=== PATIENT | female | born 1950 | race Hispanic/Latino ===

== ENCOUNTER 2017-06-10 11:18 | Emergency (ER) | payer MEDICARE, BC ==
--- NOTE | 2017-06-10 12:22 | RAD ---
RADIOGRAPH CHEST 2 VIEWS: HISTORY: A 66-year-old female with acute cough. FINDINGS: There is no air space density, pulmonary edema, pleural effusion, pneumothorax, or cardiomegaly. Mil d, chronic appearing, ill defined density in the right mid-upper lung zone, on the frontal projection , is unchanged since 05/27/2015. IMPRESSION: 1. No acute cardiopulmonary findings. 2. Right upper lobe pulmonary scar. bette POS: MARV
[2017-06-10 14:48] LABS: CKMB 0.5 ng/mL (0-6.6); Troponin I Less than 0.010 ng/mL (< 0.028)
== END 2017-06-10 15:23 | disposition home or self-care (01) ==
LOC: ERS 11:18
DX: J11.1 Influenza due to unidentified influenza virus with other respiratory manifestations (principal); E11.9 Type 2 diabetes mellitus without complications; I10 Essential (primary) hypertension; F32.9 Major depressive disorder, single episode, unspecified
CPT/HCPCS: 36415; 71046; 82553; 84484; 85379; 93005

== ENCOUNTER 2018-02-08 13:40 | Emergency (ER) | payer MEDICARE, BC ==
[2018-02-08 14:08] LABS: Bilirubin Negative (Negative); Blood, Urine Large (Negative); Clarity CLOUDY (Clear); Glucose, Urine (Dipstick) Negative (Negative); Leukocyte Large (Negative); Nitrite Negative (Negative); Protein, Urine (Dipstick) Trace mg/dL (Neg-Trace); Urobilinogen 0.2 mg/dL (0.2-1.0); pH, Urine 7.5 (5.0-9.0)
[2018-02-08 14:09] LABS: Bacteria/HPF None Seen HPF (None Seen); Hyaline Casts/LPF 0-3 HYALINE CAST LPF (0-3 Hyaline); Pathc Cast-AUWi Flag 0.43 (0-2.49); Squamous Epithelial None Seen HPF (0-3)
[2018-02-08 14:11] LABS: Specific Gravity, Urine 1.003 (1.002-1.036)
[2018-02-08] MEDS ORDERED: Ibuprofen 800 MG TAB ONE (14:42)
--- NOTE | 2018-02-08 18:35 | CT ---
CT ABDOMEN AND PELVIS PERFORMED WITHOUT CONTRAST ENHANCEMENT: HISTORY: Right flank pain. Urinary retention. Dysuria x2 days. The patient denies any history of stones. COMPARISON: 02/12/2016 FINDINGS: ABDOMEN: The lung bases show some minimal interstitial change within the left base, which appears to represent more scar. There are also some changes in the right middle lobe, also felt to be on the b asis of some scar. The liver, spleen, and pancreas regions appear unremarkable. The gallbladder has been removed. The right and left adrenal glands are normal in size and appearance. No renal calculi are demonstrat ed. Some mild hydronephrosis and hydroureter with perinephric fat stranding, particularly as the ure ter passes over the pelvic brim. This is essentially an identical appearance to the previous 2016 st udy; therefore, not certain how much of this may represent some chronic scarring in this region. The re is no demonstration of a ureteral calculus. There is no significant periaortic or mesenteric reggie opathy. PELVIS: Sigmoid diverticulosis is noted. The appendix is normal. A fat-containing paraumbilical he rnia is seen. IMPRESSION: 1. Mild right-sided hydronephrosis and hydroureter, with fairly prominent soft tissue changes, which appear to represent perinephric fat stranding along the ureter, near the level of the pelvic brim. This is a very similar appearance to what was seen on the prior examination, with these changes exten ding down into the pelvis. I suspect this is some type of scarring, given the essentially identical appearance. 2. Normal appendix. 3. Fat-containing periumbilical hernia. 4. No other significant findings. POS: MARV
== END 2018-02-08 17:20 | disposition home or self-care (01) ==
LOC: ERS 13:40
DX: N30.00 Acute cystitis without hematuria (principal); E11.9 Type 2 diabetes mellitus without complications; I10 Essential (primary) hypertension; F32.9 Major depressive disorder, single episode, unspecified; Z87.891 Personal history of nicotine dependence
CPT/HCPCS: 74176; 81003; 81015

== ENCOUNTER 2019-02-17 20:09 | Inpatient (IN) | payer MEDICARE, BC ==
[2019-02-17 20:32] LABS: #Basophils 0.1 thou/uL (0.0-0.2); #Eosinphils 0.4 thou/uL (0.0-0.7); #Monocytes 0.7 thou/uL (0.11-0.59); #Neutrophils 7.4 thou/uL (1.40-6.50); %Basophils 0.4 % (0.0-1.0); %Eosinophils 2.9 % (0.0-10.0); %Monocytes 5.7 % (0.0-10.0); %Neutrophils 58.9 % (42.0-75.0); Hemoglobin 12.6 g/dL (12.0-16.0); Mean Corpuscular HGB CONC 34.1 g/dL (32.0-36.0); Mean Corpuscular Hemoglobin 30.1 pg (27.0-31.0); Mean Corpuscular Volume 88.4 fL (78.0-98.0); Mean Platelet Volume 7.2 fL (7.4-10.4); Platelet Count 295 thou/uL (130-400); RBC Distribution Width 11.9 % (11.5-14.5); Red Blood Cell (RBC) Count 4.17 mill/uL (4.20-5.40); White Blood Cell (WBC) Count 12.5 thou/uL (4.8-10.8)
[2019-02-17] MEDS ORDERED: Morphine 4 MG/ML VIAL ONE (20:42)
[2019-02-17] MEDS ORDERED: Nitroglycerin 2% Ointment 1 INCH/1 GM Packet ONE ×2 (20:42→20:43)
[2019-02-17 20:55] LABS: ALT (SGPT) 15 U/L (8-55); AST (SGOT) 16 U/L (5-34); Alkaline Phosphatase 76 U/L (40-110); Anion Gap 11 mmol/L (10-20); BUN (Urea Nitrogen) 14 mg/dL (9.8-20.1); Bilirubin, Total 0.3 mg/dL (0.2-1.2); Calc. Creatinine Clearance 0 mL/min (70-130); Calcium 9.1 mg/dL (7.8-10.44); Carbon Dioxide 25 mmol/L (23-31); Chloride 101 mmol/L (98-107); Estimated GFR-MDRD 68; Globulin 3.4 g/dL (2.4-3.5); Glucose 185 mg/dL (80-115); Lipase 41 U/L (8-78); Magnesium 1.6 mg/dL (1.6-2.6); Potassium 3.7 mmol/L (3.5-5.1); Protein, Total 7.4 g/dL (6.0-8.3); Sodium 133 mmol/L (136-145)
--- NOTE | 2019-02-17 21:12 | RAD ---
RADIOGRAPH CHEST 1 VIEW: DATE: 02/17/2019 HISTORY: 68-year-old female with pain FINDINGS: There are no airspace densities, pulmonary edema, pneumothorax, or cardiomegaly. The lateral costophr enic angles are sharp. IMPRESSION: No acute cardiopulmonary findings.
[2019-02-17 21:54] LABS: Bilirubin Negative (Negative); Blood, Urine Negative (Negative); Clarity Clear (Clear); Glucose, Urine (Dipstick) Normal (Negative); Leukocyte Negative Leu/uL (Negative); Nitrite Negative (Negative); Protein, Urine (Dipstick) Negative (Neg-Trace); Urobilinogen Normal mg/dL (Less than 2)
[2019-02-17] MEDS ORDERED: Enoxaparin Sodium 40 MG/0.4 ML SYRINGE ONE (22:38)
[2019-02-17] MEDS ORDERED: Enoxaparin Sodium 30 MG/0.3 ML SYRINGE ONE (22:39)
[2019-02-18] MEDS ORDERED: Acetaminophen 650 MG Suppository PR PRN (01:25)
[2019-02-18] MEDS ORDERED: Acetaminophen 325 MG TAB PO PRN (01:25)
[2019-02-18] MEDS ORDERED: Ondansetron PF 4 MG/2 ML Vial IVP PRN (01:25)
[2019-02-18] MEDS ORDERED: HumaLOG 300 UNITS/3 ML VIAL SC PRN ×2 (01:33)
[2019-02-18] MEDS ORDERED: Dextrose 5% in Water 1,000 ML IV PRN (01:33)
[2019-02-18] MEDS ORDERED: Dextrose 50% Abboject 50 ML SYRINGE SLOW IVP PRN (01:33)
[2019-02-18 01:41] VITALS: BMI 30.3
[2019-02-18 02:11] LABS: #Basophils 0.2 thou/uL (0.0-0.2); #Eosinphils 0.3 thou/uL (0.0-0.7); #Lymphocytes 3.7 thou/uL (1.20-3.40); #Monocytes 0.6 thou/uL (0.11-0.59); #Neutrophils 6.8 thou/uL (1.40-6.50); %Basophils 1.5 % (0.0-1.0); %Eosinophils 2.7 % (0.0-10.0); %Lymphocytes 32.2 % (21.0-51.0); %Monocytes 5.2 % (0.0-10.0); %Neutrophils 58.4 % (42.0-75.0); Hemoglobin 11.8 g/dL (12.0-16.0); Mean Corpuscular HGB CONC 33.8 g/dL (32.0-36.0); Mean Corpuscular Hemoglobin 30.1 pg (27.0-31.0); Platelet Count 257 thou/uL (130-400); RBC Distribution Width 11.9 % (11.5-14.5); Red Blood Cell (RBC) Count 3.93 mill/uL (4.20-5.40); White Blood Cell (WBC) Count 11.6 thou/uL (4.8-10.8)
[2019-02-18 02:44] LABS: Troponin I 0.177 ng/mL (< 0.028)
[2019-02-18 02:54] LABS: Anion Gap 14 mmol/L (10-20); BUN (Urea Nitrogen) 14 mg/dL (9.8-20.1); Calc. Creatinine Clearance 82 mL/min (70-130); Calcium 9.1 mg/dL (7.8-10.44); Carbon Dioxide 25 mmol/L (23-31); Chloride 103 mmol/L (98-107); Estimated GFR-MDRD 79; Glucose 113 mg/dL (80-115); Potassium 3.8 mmol/L (3.5-5.1); Sodium 138 mmol/L (136-145)
--- NOTE | 2019-02-18 05:07 | HP ---
TIME OF ASSESSMENT: 2300 hours. PRIMARY CARE PHYSICIAN: Kana Aguirre MD. CHIEF COMPLAINT: Chest pain worsening x1 month. HISTORY OF PRESENT ILLNESS: Ms. Carbone is a 68-year-old woman with a past medical history of diabetes and hypertension, who states for the last month, she has had occasional pain that has started on the right side of her neck and then involving her jaw, which she states feels like a stiffness. She states that it has been going on for about a month and coming on any time of day whether she is exerting herself or at rest. The pain then moves to her left shoulder and into her chest. More recently, the pain has become more frequent and more severe. She had a severe episode of pain come on suddenly around 7 p.m., lasting approximately 15 to 20 minutes, which she states was a 10/10 in severity. She has difficulty characterizing the pain, but states it is severe. The jaw feels tight and stiff , but she still able to move it. She does wear dentures. Denies having any soreness to her jaw when the pain has subsided. Again, the pain radiated to her left shoulder and down into the center of her chest. She had a recurring pain when EMS arrived to her home and states it lasted approximately 5 minutes and was relieved with aspirin and nitroglycerin given. Since being in the emergency department, she had one recurring episode and the pain did subside. She is currently pain free. In the emergency department, she underwent laboratory studies including full blood count, which was notable for white cell count of 12.5. She had a D-dimer checked, which was negative. Sodium was 133, potassium 3.7, BUN 14, creatinine 0.83, GFR 68, glucose 185, calcium 9.1, magnesium 1.6. LFTs unremarkable. Lipase normal. Initial troponin was 0.022. She underwent a chest x-ray, which showed no acute cardiopulmonary findings. An EKG was done demonstrating normal sinus rhythm with a heart rate of [address] changes or T-wave abnormalities. Given the description of pain, there was concern for unstable angina versus NSTEMI. Therefore, she was started on Nitro-Bid, given morphine and a dose of Lovenox. The case was discussed with Dr. Ramires and she will be seen in the morning. PAST MEDICAL HISTORY: 1. Cardiomyopathy. 2. Hypothyroidism. 3. GERD. 4. Inflammatory bowel disease, ulcerative colitis. 5. Hypertension. 6. CKD, stage III. 7. Heart murmur. 8. Anxiety. PAST SURGICAL HISTORY: 1. Cholecystectomy. 2. Hysterectomy. 3. Tonsillectomy. 4. Benign tumor removed from lung. 5. Colon resection. 6. Bladder suspension. 7. Lumpectomy from breast x2. 8. Varicose vein surgery. SOCIAL HISTORY: The patient is a smoker and states she quit 3 days ago. She smokes a pack per day. Denies any alcohol consumption or illicit drug use. ALLERGIES: MORPHINE. CURRENT MEDICATIONS: 1. Carvedilol. 2. Losartan. 3. Hydralazine. 4. Simvastatin. 5. Lasix. 6. Calcium carbonate. 7. Alprazolam. 8. Catapres. 9. Eliquis. PHYSICAL EXAMINATION: GENERAL: The patient appears well developed, well nourished, is in no acute distress. VITAL SIGNS: Temperature 101, pulse 72, respirations 18, blood pressure 111/46, saturations 92% on 2 L. HEENT: Normocephalic and atraumatic. Pupils are equal, round, and reactive to light. Sclerae icterus. Oropharynx is clear. The patient did have some mild tenderness with palpation of the right samaritan/face. Reports having history of neuralgia/migraines, but states this feels different. No pain involving the jaw at present. Able to open and close her mouth without difficulty. NECK: Supple. LUNGS: Notable for crackles in the right lung base, otherwise unremarkable. ABDOMEN: Soft, nontender, nondistended. Normoactive bowel sounds present. EXTREMITIES: No lower leg swelling or edema. NEUROLOGIC: Alert and oriented x3. SKIN: Without rash or jaundice. INVESTIGATIONS: As mentioned above in HPI. IMPRESSION AND PLAN: Ms. Carbone is a pleasant 68-year-old woman with multiple comorbidities, who has been referred for management of the following. 1. Unstable angina versus [id number]-gonmtaulb myocardial infarction. The patient with chest pain that has progressively worsening for the last month, occurring with exertion or at rest. The pain seems to start in the jaw and neck and radiates to the left shoulder and upper chest. The patient has been given aspirin and started on Lovenox. Conversation held with Dr. Ramires and ED physician. The patient will be evaluated by Cardiology in the morning. We will continue to trend troponins. Since Cardiology has already been consulted by the ED physician, we will not order any tests. Further investigations as per Cardiology. 2. Leukocytosis. The patient with a white count of 12.5. She does have a chronic cough associated with long-standing history of smoking. This is not worse in recent days. No productive cough. We will add on procalcitonin and lactic acid. She did have a clear chest x-ray, however, there were crackles at the right lung base. We will order a CT of the chest without contrast. Urinalysis was negative. No confirmed source of infection at present. We will continue to monitor white count. She remains afebrile. 3. Hypertension. Resume home medications and monitor blood pressure. 4. Gastroesophageal reflux disease. Resume Protonix. 5. Diabetes mellitus. Initiate insulin sliding scale and hold metformin. Monitor blood glucose. 6. Deep venous thrombosis prophylaxis. Mechanical SCDs. The patient was given Lovenox. 7. Code status, full. Her surrogate decision maker is her daughter, Eli Carbone and her son, Zaira Carbone Jr. The patient's case discussed with attending, who agrees with plan of care as described above. Job ID: [id number] MTDD
[2019-02-18 05:50] LABS: Lactic Acid 1.2 mmol/L (0.5-2.2)
[2019-02-18 06:22] LABS: CKMB 2.8 ng/mL (0-6.6)
[2019-02-18] MEDS: FLUoxetine HCl 20 MG CAP PO SCH (08:38)
[2019-02-18] MEDS: Losartan 25 MG TAB PO SCH ×2 (08:38→21:23)
[2019-02-18] MEDS: Amlodipine 5 MG TAB PO SCH (08:39)
[2019-02-18] MEDS: Aspirin 81 mg Enteric Coated Tablet PO SCH (08:39)
[2019-02-18] MEDS: Famotidine/PF 20 mg/2ml Vial SLOW IVP SCH ×2 (08:39→21:23)
[2019-02-18] MEDS ORDERED: Prevnar 13-Val Conj/PF 0.5 ML SYRINGE IM ONE (09:00)
--- NOTE | 2019-02-18 09:23 | CT ---
EXAM: CT of the chest without contrast HISTORY: Crackles in the right lung base and COPD. COMPARISON: None TECHNIQUE: Multiple contiguous axial images were obtained in a CT the chest without contrast. Coronal and sagittal reformats were performed. FINDINGS: HEART: Normal in size without focal cardiac abnormality. Calcifications in the coronary arteries and aorta. MEDIASTINUM: No hilar or mediastinal lymphadenopathy. Evaluation of the mediastinum is limited withou t IV contrast. LUNGS: No focal infiltrates, nodules, or masses. Bibasilar atelectasis. PLEURAL SPACE: No pneumothorax or pleural effusion. CHEST WALL SOFT TISSUES: Unremarkable OSSEOUS STRUCTURES: Degenerative changes in the spine. VISUALIZED SUBDIAPHRAGMATIC STRUCTURES: Unremarkable. The patient is status post cholecystectomy. IMPRESSION: No evidence of acute intrathoracic abnormality.
--- NOTE | 2019-02-18 09:29 | CT ---
CT cervical spine without contrast: Multiple axial tones obtained through cervical spine with multiplanar reconstruction. INDICATIONS: Neck pain COMPARISON: none FINDINGS: Mild anterior wedging of the C5 and C6 vertebra with degenerative osteophytes from these levels. Mild loss of disc space at C4-5 and C5-6. C3-4: Mild disc bulge and spondylosis. Mild left foraminal narrowing due to facet hypertrophy. C4-5: Mild spondylosis. No significant foraminal or central canal stenosis. C5-6: Disc bulge and spondylosis abuts the anterior cord. No significant foraminal stenosis. C6-7: Minimal disc bulge and spondylosis. No central canal or foraminal stenosis. IMPRESSION: Degenerative changes cervical spine most pronounced at C4-5 and C5-6 levels.
--- NOTE | 2019-02-18 10:43 | PDOC.HOSPP ---
- Subjective Subjective: She reports pain in the right paratracheal area. It is tender to touch. She was referred to ENT and had an appt this morning. Additionally, she has pain that radiates the face, left shoulder and back. - Objective Vital Signs & Weight: Vital Signs (12 hours) Temp Pulse Resp BP Pulse Ox 02/18/19 08:20 97.9 F 70 20 140/63 94 L 02/18/19 04:00 98.5 F 69 18 115/56 L 92 L 02/18/19 00:30 98 F 62 16 134/62 92 L Weight Weight 160 lb 6.4 oz I&O: 02/17/19 02/18/19 02/19/19 06:59 06:59 06:59 Intake Total 265 Balance 265 Result Diagrams: 02/18/19 02:01 02/18/19 02:01 Additional Labs: Accuchecks 02/18/19 05:34 POC Glucose 105 Hospitalist ROS - Medication Medications: Active Medications Generic Name Dose Route Start Last Admin Trade Name Grey PRN Reason Stop Dose Admin Amlodipine Besylate 5 mg 02/18/19 09:00 02/18/19 08:39 Norvasc PO 5 mg DAILY SAM Administration Aspirin 81 mg 02/18/19 09:00 02/18/19 08:39 Ecotrin PO 81 mg DAILY SAM Administration Famotidine 20 mg 02/18/19 09:00 02/18/19 08:39 Pepcid SLOW IVP 20 mg Q12HR SAM Administration Fluoxetine HCl 20 mg 02/18/19 09:00 02/18/19 08:38 Prozac PO 20 mg DAILY SAM Administration Losartan Potassium 50 mg 02/18/19 09:00 02/18/19 08:38 Cozaar PO 50 mg BID SAM Administration - Exam General Appearance: NAD, awake alert ENT - other findings: Edentulous. No lesions. Neck: supple, symmetric, no thyromegaly Neck - other findings: TTP along right lateral trachea. Very small LN palpable in the tender area Heart: RRR, no murmur, no gallops, no rubs, normal peripheral pulses Respiratory: CTAB, no wheezes, no rales, no ronchi, normal chest expansion, no tachypnea, normal percussion Gastrointestinal: soft, non-tender, non-distended, normal bowel sounds, no palpable masses, no hepatomegaly, no splenomegaly, no bruit Extremities: no edema Skin: normal turgor Neurological - other findings: Vitiligo over large area of the trunk. Musculoskeletal: normal tone, normal strength, no muscle wasting Psychiatric: normal affect, normal behavior, A&O x 3 Hosp A/P (1) Chest pain Code(s): R07.9 - CHEST PAIN, UNSPECIFIED Status: Acute (2) Throat pain Code(s): R07.0 - PAIN IN THROAT Status: Acute (3) Vitiligo Code(s): L80 - VITILIGO Status: Acute (4) Diabetes Code(s): E11.9 - TYPE 2 DIABETES MELLITUS WITHOUT COMPLICATIONS Status: Chronic (5) Hypertension Code(s): I10 - ESSENTIAL (PRIMARY) HYPERTENSION Status: Chronic - Plan Chest pain with radiation to the face, left shoulder and back. Upward trending trops to the indeterminate range. Don't find a reason for the trops to trend upward other than ischemia. Cardiology to see. Will not stress as she may warrant a cath. Throat pain is likely not related.
[2019-02-18] MEDS ORDERED: Communication Order-Pharmacy FS SCH (16:30)
--- NOTE | 2019-02-18 17:13 | CON ---
DATE OF CONSULTATION: 02/18/2019 REASON FOR CONSULTATION: Chest pain. HISTORY OF PRESENT ILLNESS: Ms. Carbone is a pleasant 68-year-old female, who comes to the hospital for chest pain. She has been noticing worsening chest pain for the last month to the point where yesterday was severe, 10/10 in the left chest, so she decided to come in for evaluation. She states that the pain radiates to the neck into the right jaw. Currently she is chest pain free. PAST MEDICAL HISTORY: 1. Hypothyroidism. 2. Gastroesophageal reflux disease. 3. Inflammatory bowel disease and ulcerative colitis. 4. Hypertension. 5. Chronic kidney disease stage 3. 6. Heart murmur in the past. 7. Anxiety and depression. 8. History of cardiomyopathy, unclear. PAST SURGICAL HISTORY: 1. Cholecystectomy. 2. Hysterectomy. 3. Tonsillectomy. 4. Benign tumor removed from the lung. 5. Colon resection. 6. Bladder suspension. 7. Lumpectomy from breast x2. 8. Varicose vein surgery. SOCIAL HISTORY: Smoker, quit three days ago. Smokes a pack a day. No alcohol or drugs. OUTPATIENT MEDICATIONS: 1. Fluoxetine 20 mg a day. 2. Amlodipine 5 mg a day. 3. Metformin 1500 mg a day. 4. Pantoprazole 40 mg a day. ALLERGIES: NO KNOWN DRUG ALLERGIES. FAMILY HISTORY: Noncontributory. REVIEW OF SYSTEMS: A 12-point review of systems was done and was all negative unless stated in the history and physical exam. PHYSICAL EXAMINATION: VITAL SIGNS: Temperature 98.0, pulse 67, respiratory rate 20, saturating 93% on room air, and blood pressure 134/60. GENERAL: Awake, alert, and oriented x3, in no distress. HEENT: Normocephalic and atraumatic. NECK: Supple. LUNGS: Clear. CARDIOVASCULAR: S1 and S2. No S3 or S4. No murmurs. ABDOMEN: Soft. Positive bowel sounds. EXTREMITIES: No edema. SKIN: Warm and dry. LABORATORY DATA: Laboratory work was reviewed. CBC with a white count of 12, hemoglobin of 12, hematocrit of 36, platelet count of 295. Coags with normal D-dimer. Chemistries with normal CMP. Troponin has been 0.02, and then 0.1, 0.17, 0.23, and 0.22. UA was unremarkable. EKG was reviewed. CT of the chest and cervical spine were reviewed. ASSESSMENT/PLAN: 1. Chest pain concerned for unstable angina. We will plan on doing a heart catheterization tomorrow morning. We will keep her n.p.o. post midnight. We spoke at length with risks and benefits of the procedure. Risks including but are not limited to stroke, [place], , bleeding, need for blood transfusion, limb loss, organ loss. The patient understands and verbalized understanding of this and agrees to proceed. Right femoral access. Bare metal stents if needed due to history of colitis and possibly needing cervical spine surgery, but this pain is actually coming from her neck. 2. Further recommendations per results of coronary angiogram. Job ID: [id number]
[2019-02-18] MEDS: Sodium Chloride 0.9% 1,000 ML IV SCH (21:22)
[2019-02-18] MEDS: Atorvastatin Calcium 10 MG TAB PO SCH (21:23)
[2019-02-19] MEDS ORDERED: Sodium Chloride 0.9% 500 ML IV SCH ×2 (00:01→08:30)
[2019-02-19] MEDS: Amlodipine 5 MG TAB PO SCH (05:08)
[2019-02-19] MEDS: Famotidine/PF 20 mg/2ml Vial SLOW IVP SCH ×2 (05:08→21:50)
[2019-02-19] MEDS: Aspirin 81 mg Enteric Coated Tablet PO SCH (05:09)
[2019-02-19] MEDS: Losartan 25 MG TAB PO SCH ×2 (05:09→21:50)
[2019-02-19] MEDS: FLUoxetine HCl 20 MG CAP PO SCH (05:09)
[2019-02-19] MEDS: Sodium Chloride 0.9% 1,000 ML IV SCH ×2 (05:31→12:11)
[2019-02-19] MEDS ORDERED: Lidocaine 1% (PF) 30 ML VIAL ONE (06:34)
[2019-02-19] MEDS ORDERED: Midazolam HCl 2 mg/2 ml Vial ONE (07:45)
[2019-02-19] MEDS ORDERED: Fentanyl 100 MCG/2 ML VIAL ONE (07:45)
[2019-02-19] MEDS ORDERED: Heparin 10,000 UNITS/1 ML VIAL ONE (07:56)
[2019-02-19] MEDS ORDERED: TICAGRELOR 90 MG TABLET ONE (08:16)
[2019-02-19] MEDS ORDERED: Morphine 2 MG/ML SYRINGE SLOW IVP PRN (08:34)
[2019-02-19] MEDS ORDERED: FLU VACC TS2019-20(65YR UP)/PF 180 MCG/0.5 ML SYRINGE IM ONE (09:00)
[2019-02-19] MEDS: TICAGRELOR 90 MG TABLET PO SCH ×2 (12:10→21:50)
[2019-02-19] MEDS ORDERED: Iopamidol 370 76% 50 ML VIAL FS ONE (12:24)
[2019-02-19] MEDS ORDERED: Iopamidol 370 76% 100 ML VIAL ONE (12:24)
--- NOTE | 2019-02-19 14:15 | PRG ---
DATE OF SERVICE: 02/19/2019 SUBJECTIVE: The patient is seen and examined at the bedside. She just came back from cardiac cath. She has some discomfort in the right groin, where this was point of entry for the cardiac cath. Otherwise, she is feeling fine. OBJECTIVE: VITAL SIGNS: Blood pressure is 164/74, pulse is 72, temperature is 97.5, respirations 16, and O2 saturation is 97% on room air. HEENT: Head is atraumatic and normocephalic. Eyes are PERRLA. Sclerae are nonicteric. Oral mucosa is moist. NECK: Supple. LUNGS: Clear. HEART: S1 and S2 normal. There is a systolic murmur mostly audible in the right sternal border suspicious for aortic stenosis. ABDOMEN: Soft and nontender. Bowel sounds are present. No organomegaly. EXTREMITIES: No clubbing, cyanosis, or edema. NEUROLOGIC: She follows my commands. She moves all 4 extremities. There are no any motor or sensory deficits. LABORATORY DATA: Glycemia is ranging from 115 to 178. IMPRESSION: 1. Chest pain, status post cardiac catheterization which showed very advanced multiple lesions in multiple vessels. 2. Vitiligo, chronic, stable. 3. Diabetes mellitus, chronic, stable. 4. Hypertension, chronic, stable. For now, we will await Dr. Powell's recommendation, but most likely cardiovascular surgeon will be called to evaluate the patient for possible bypass. Job ID: [id number]
[2019-02-19] MEDS: Carvedilol 3.125 MG TAB PO SCH (17:23)
--- NOTE | 2019-02-19 18:51 | EKG ---
Test Reason : POST STENT-PROX CIRC Blood Pressure : / mmHG Vent. Rate : 069 BPM Atrial Rate : 069 BPM P-R Int : 184 ms QRS Dur : 090 ms QT Int : 410 ms P-R-T Axes : 064 066 099 degrees QTc Int : 439 ms Normal sinus rhythm Nonspecific ST and T wave abnormality Abnormal ECG When compared with ECG of 17-FEB-2019 20:27, (Unconfirmed) No significant change was found Confirmed by KAMRAN PLUNKETT, . SAlanna ([id number]) on 02/19/2019 6:50:47 PM Referred By: LOY Confirmed By:DR. Junaid ANDREW MD
[2019-02-19] MEDS: Atorvastatin Calcium 10 MG TAB PO SCH (21:50)
[2019-02-20 06:20] LABS: #Eosinphils 0.3 thou/uL (0.0-0.7); #Lymphocytes 1.9 thou/uL (1.20-3.40); #Monocytes 0.8 thou/uL (0.11-0.59); #Neutrophils 9.8 thou/uL (1.40-6.50); %Basophils 0.2 % (0.0-1.0); %Eosinophils 2.1 % (0.0-10.0); %Lymphocytes 14.9 % (21.0-51.0); %Neutrophils 76.9 % (42.0-75.0); Hemoglobin 12.5 g/dL (12.0-16.0); Mean Corpuscular HGB CONC 33.8 g/dL (32.0-36.0); Mean Corpuscular Hemoglobin 30.4 pg (27.0-31.0); Mean Platelet Volume 7.4 fL (7.4-10.4); Platelet Count 267 thou/uL (130-400); RBC Distribution Width 12.1 % (11.5-14.5); Red Blood Cell (RBC) Count 4.12 mill/uL (4.20-5.40); White Blood Cell (WBC) Count 12.8 thou/uL (4.8-10.8)
[2019-02-20 06:47] LABS: ALT (SGPT) 17 U/L (8-55); AST (SGOT) 24 U/L (5-34); Albumin 3.8 g/dL (3.4-4.8); Alkaline Phosphatase 81 U/L (40-110); Anion Gap 11 mmol/L (10-20); BUN (Urea Nitrogen) 11 mg/dL (9.8-20.1); Bilirubin, Total 0.9 mg/dL (0.2-1.2); Calc. Creatinine Clearance 87 mL/min (70-130); Calcium 9.2 mg/dL (7.8-10.44); Carbon Dioxide 25 mmol/L (23-31); Chloride 105 mmol/L (98-107); Estimated GFR-MDRD 84; Globulin 3.8 g/dL (2.4-3.5); Glucose 137 mg/dL (80-115); Protein, Total 7.6 g/dL (6.0-8.3); Sodium 137 mmol/L (136-145)
[2019-02-20] MEDS: Carvedilol 3.125 MG TAB PO SCH (08:33)
[2019-02-20] MEDS: TICAGRELOR 90 MG TABLET PO SCH ×2 (08:34→20:22)
[2019-02-20] MEDS: Aspirin 81 mg Enteric Coated Tablet PO SCH (08:34)
[2019-02-20] MEDS: Amlodipine 5 MG TAB PO SCH (08:34)
[2019-02-20] MEDS: Losartan 25 MG TAB PO SCH ×2 (08:34→20:22)
[2019-02-20] MEDS: FLUoxetine HCl 20 MG CAP PO SCH (08:34)
[2019-02-20] MEDS: Famotidine/PF 20 mg/2ml Vial SLOW IVP SCH ×2 (08:35→09:51)
[2019-02-20] MEDS ORDERED: Famotidine 20 MG TAB PO SCH (09:45)
--- NOTE | 2019-02-20 09:51 | PDOC.CPN ---
- Subjective Date: 02/20/19 Time: 09:50 Interval history: No overnight events. Walking in li without CP,SOB. No complaints. - Review of Systems General: denies: fever/chills, weight/appetite/sleep changes, night sweats, fatigue Respiratory: denies: cough, congestion, shortness of breath, exercise intolerance Cardiovascular: denies: chest pain, palpitation, edema, paroxysmal nocturnal dyspnea, orthopnea Gastrointestinal: denies: nausea, vomiting, diarrhea, constipation, abd pain, GI bleeding Musculoskeletal: denies: pain, tenderness, stiffness, swelling, arthritis/ arthralgias Neurological: denies: numbness, syncope, seizure, weakness - Objective Allergies/Adverse Reactions: Allergies Allergy/AdvReac Type Severity Reaction Status Date / Time No Known Allergies Allergy Verified 02/18/19 01:33 Visit Medications: Current Medications Acetaminophen (Tylenol) 650 mg PO Q4H PRN PRN Reason: Headache/Fever/Mild Pain (1-3) Acetaminophen (Tylenol) 650 mg [place] Q4H PRN PRN Reason: Headache/Fever/Mild Pain (1-3) Amlodipine Besylate (Norvasc) 5 mg PO DAILY [facility] Last Admin: 02/20/19 08:34 Dose: 5 mg Aspirin (Ecotrin) 81 mg PO DAILY [facility] Last Admin: 02/20/19 08:34 Dose: 81 mg Atorvastatin Calcium (Lipitor) 10 mg PO [facility] Last Admin: 02/19/19 21:50 Dose: 10 mg Carvedilol (Coreg) 6.25 mg PO BID-[facility] Dextrose/Water (Dextrose 50%) 25 gm SLOW IVP PRN PRN PRN Reason: Hypoglycemia Famotidine (Pepcid) 20 mg PO DAILY [facility] Famotidine (Pepcid) 20 mg PO NOW [facility] Stop: 02/20/19 11:00 Fluoxetine HCl (Prozac) 20 mg PO DAILY [facility] Last Admin: 02/20/19 08:34 Dose: 20 mg Glucagon (Glucagon) 1 mg IM PRN PRN PRN Reason: Hypoglycemia Dextrose/Water (D5w) 1,000 mls @ 0 mls/hr IV .Q0M PRN PRN Reason: Hypoglycemia Insulin Human Lispro (Humalog) 0 units SC .MILD SLIDING SCALE PRN PRN Reason: Mild Correctional Scale Insulin Human Lispro (Humalog) 0 units SC .BEDTIME SLIDING SC PRN PRN Reason: Bedtime Correctional Scale Losartan Potassium (Cozaar) 50 mg PO BID [facility] Last Admin: 02/20/19 08:34 Dose: 50 mg Morphine Sulfate (Morphine) 2 mg SLOW IVP Q4H PRN PRN Reason: Moderate Pain (4-6) Nitroglycerin (Nitrostat) 0.4 mg SL Q5MIN PRN PRN Reason: Chest Pain Ondansetron HCl (Zofran Odt) 4 mg PO Q6H PRN PRN Reason: Nausea/Vomiting Ondansetron HCl (Zofran) 4 mg IVP Q6H PRN PRN Reason: Nausea/Vomiting Sodium Chloride (Flush - Normal Saline) 10 ml IVF Q12HR PRN PRN Reason: Saline Flush Last Admin: 02/20/19 08:35 Dose: 10 ml Sodium Chloride (Flush - Normal Saline) 10 ml IVF PRN PRN PRN Reason: Saline Flush Ticagrelor (Brilinta) 90 mg PO BID [facility] Last Admin: 02/20/19 08:34 Dose: 90 mg Vital Signs & Weight: Vital Signs Temp Pulse Resp BP BP Pulse Ox 02/20/19 08:34 88 142/68 H 02/20/19 03:31 97.8 F 72 13 141/67 H 96 Admit Weight 160 lb 6.4 oz Weight 157 lb 9 oz - Physical Exam General: alert & oriented x3, appears well HEENT: mucus membranes moist Neck: supple neck Cardiac: regular rate and rhythm Lungs: clear to auscultation, no wheeze, rales, rhonchi Neuro: grossly intact Abdomen: soft, non-tender Extremities: no cyanosis, no edema Skin: clear Musculoskeletal: normal range of motion - Labs Result Diagrams: 02/20/19 05:55 02/20/19 05:55 Troponin/CKMB CK-MB (CK-2) 2.8 ng/mL (0-6.6) 02/18/19 05:23 Troponin I 0.220 ng/mL (< 0.028) H 02/18/19 11:57 - Assessment/Plan Assessment/Plan: 1. CP 2. CAD s/p PCI-LCx 3. HTN 4. DM-II Doing well post-PCI. BP still elevated. Increase Coreg. Ok for discharge today. F/U 2-3 weeks as outpatient. Pt seen and exaimned CP today for 5 seconds Troponin mild increase likely secondary to recent stent Check CKMB Add imdur 30mg QAM (jailed small vessels) Home tomorrow
--- NOTE | 2019-02-20 12:11 | EKG ---
Test Reason : Blood Pressure : / mmHG Vent. Rate : 070 BPM Atrial Rate : 070 BPM P-R Int : 154 ms QRS Dur : 076 ms QT Int : 426 ms P-R-T Axes : 051 012 096 degrees QTc Int : 460 ms Normal sinus rhythm Nonspecific ST and T wave abnormality Abnormal ECG Confirmed by LAUREN NÚÑEZ ([id number]), news assignment editor PRABHA TENA ([id number]) on 02/20/2019 12:10:41 PM Referred By: Confirmed By:LAUREN NÚÑEZ
[2019-02-20] MEDS: Nitroglycerin 0.4 MG TAB (25 Tab Bottle) SL PRN ×2 (12:29→12:35)
--- NOTE | 2019-02-20 13:54 | DIS ---
DATE OF ADMISSION: 02/17/2019 DATE OF DISCHARGE: 02/20/2019 FINAL DIAGNOSES AT THE TIME OF DISCHARGE: 1. Chest pain, resolved. 2. Coronary artery disease, status post percutaneous coronary intervention to left circumflex. 3. Diabetes mellitus type 2, chronic, stable. 4. Hypertension. 5. Vitiligo, chronic, stable. CONSULTANTS: Dr. Adán Powell, Cardiology Service. PROCEDURE: Cardiac catheterization with PCI to left circumflex. HOSPITAL COURSE: The patient was a 68-year-old female, who was admitted to the hospital with chest pain, which was worsening x1 month. She has a past medical history of diabetes mellitus, hypertension, and for the last month prior to this hospitalization, she had some pain, which was started in the right side of her neck, then involving her jaw, then the pain moved to the left shoulder and into the chest. The pain became more frequent recently and more severe. She had this severe episode of pain lasting approximately 15 to 20 minutes the day prior to this hospitalization, she graded this at 10/10 in severity. She denied any soreness to her jaw. The EMS was called and she has been transferred to the emergency room, where her further diagnostic workup showed a white count of 12.5. D-dimers were negative. Sodium 133, potassium 3.7, BUN 14, creatinine 0.83, calcium 9.1, and magnesium 1.6. Initial troponin was 0.022. Her chest x-ray showed no acute cardiopulmonary findings and EKG demonstrated normal sinus rhythm with heart rate of 70 beats per minute and no ST changes or T-wave abnormalities. The patient got admitted to the hospital after she was placed on morphine, Lovenox and Cardiology consultation was requested. Her troponin I levels went up to 0.177, 0.233, then 0.220. The patient was seen by Dr. Powell for Cardiology evaluation, who recommended cardiac catheterization, which was done and she underwent PCI to left circumflex artery, postprocedure time was unremarkable. She is able to ambulate and she has some soreness in the right groin, but the groin looks good. Her lungs are clear. Heart, S1 and S2 normal. Abdomen is soft, obese, nontender. Her blood pressure is 141/67, it was elevated to 160s, but during this hospitalization, she was started on losartan and Coreg. She is discharged home in good condition after she is cleared by cardiology Service. She will stay on 2000 calories ADA diet. Her activities somewhat limited to the post-cath situation, so she can do her basic routine in the next probably day or 2. Otherwise, she will take it easy for the next couple of days. MEDICATIONS: At the time of discharge; 1. Fluoxetine 20 mg once a day. 2. Amlodipine 5 mg daily. 3. Metformin 1500 mg daily. 4. Pantoprazole 40 mg daily. 5. Brilinta 90 mg twice a day. 6. Losartan 50 mg twice a day. 7. Carvedilol 6.25 mg twice a day. 8. Atorvastatin 10 mg at bedtime. 9. Tylenol p.r.n. as needed. FOLLOWUP: She is going to follow up with her primary care physician in [address] Powell in the next 2 to 3 weeks for Cardiology evaluation. Job ID: [id number]
[2019-02-20 14:23] LABS: CKMB 1.9 ng/mL (0-6.6)
[2019-02-20] MEDS ORDERED: Aspirin Chewable 81 MG TAB PO SCH (14:45)
[2019-02-20] MEDS ORDERED: Carvedilol 3.125 MG TAB PO SCH (17:00)
[2019-02-20] MEDS: Carvedilol 6.25 MG TAB PO SCH (17:22)
[2019-02-20 19:51] LABS: CKMB 1.9 ng/mL (0-6.6)
[2019-02-20] MEDS: Atorvastatin Calcium 10 MG TAB PO SCH (20:23)
[2019-02-20] MEDS ORDERED: FLU VACC TS2019-20(65YR UP)/PF 180 MCG/0.5 ML SYRINGE IM ONE (21:00)
[2019-02-21] MEDS: Losartan 25 MG TAB PO SCH (08:58)
[2019-02-21] MEDS: TICAGRELOR 90 MG TABLET PO SCH ×2 (08:58→20:03)
[2019-02-21] MEDS: Isosorbide Mononitrate (ER) 30 MG TAB PO SCH (08:58)
[2019-02-21] MEDS: Famotidine 20 MG TAB PO SCH (08:59)
[2019-02-21] MEDS: Amlodipine 5 MG TAB PO SCH (08:59)
[2019-02-21] MEDS: Aspirin 81 mg Enteric Coated Tablet PO SCH (08:59)
[2019-02-21] MEDS: FLUoxetine HCl 20 MG CAP PO SCH (08:59)
[2019-02-21] MEDS: Carvedilol 6.25 MG TAB PO SCH ×2 (08:59→17:32)
[2019-02-21] MEDS ORDERED: Aspirin 325 MG TAB PO SCH (09:00)
[2019-02-21] MEDS ORDERED: Ketorolac Tromethamine 30 MG/ML VIAL ONE (11:03)
--- NOTE | 2019-02-21 11:09 | PDOC.CPN ---
- Subjective Date: 02/21/19 Time: 11:07 Interval history: Jorge Luis Gu called approximately 30 min ago. Per nurse patient with back pain, shoulder pain, BP dropped to 90s systolic. EKG reviewed and no acute changes. Labs pending. - Review of Systems Respiratory: denies: cough, congestion, shortness of breath, exercise intolerance Cardiovascular: reports: chest pain Gastrointestinal: denies: nausea, vomiting, diarrhea, constipation, abd pain, GI bleeding Neurological: denies: numbness, syncope, seizure, weakness - Objective Allergies/Adverse Reactions: Allergies Allergy/AdvReac Type Severity Reaction Status Date / Time No Known Allergies Allergy Verified 02/18/19 01:33 Visit Medications: Current Medications Acetaminophen (Tylenol) 650 mg PO Q4H PRN PRN Reason: Headache/Fever/Mild Pain (1-3) Acetaminophen (Tylenol) 650 mg CA Q4H PRN PRN Reason: Headache/Fever/Mild Pain (1-3) Amlodipine Besylate (Norvasc) 5 mg PO DAILY [facility] Last Admin: 02/21/19 08:59 Dose: 5 mg Aspirin (Ecotrin) 81 mg PO DAILY [facility] Last Admin: 02/21/19 08:59 Dose: 81 mg Atorvastatin Calcium (Lipitor) 10 mg PO HS [facility] Last Admin: 02/20/19 20:23 Dose: 10 mg Carvedilol (Coreg) 6.25 mg PO BID-[facility] Last Admin: 02/21/19 08:59 Dose: 6.25 mg Dextrose/Water (Dextrose 50%) 25 gm SLOW IVP PRN PRN PRN Reason: Hypoglycemia Famotidine (Pepcid) 20 mg PO DAILY [facility] Last Admin: 02/21/19 08:59 Dose: 20 mg Fluoxetine HCl (Prozac) 20 mg PO DAILY [facility] Last Admin: 02/21/19 08:59 Dose: 20 mg Glucagon (Glucagon) 1 mg IM PRN PRN PRN Reason: Hypoglycemia Dextrose/Water (D5w) 1,000 mls @ 0 mls/hr IV .Q0M PRN PRN Reason: Hypoglycemia Insulin Human Lispro (Humalog) 0 units SC .MILD SLIDING SCALE PRN PRN Reason: Mild Correctional Scale Insulin Human Lispro (Humalog) 0 units SC .BEDTIME SLIDING SC PRN PRN Reason: Bedtime Correctional Scale Isosorbide Mononitrate (Imdur Er) 30 mg PO DAILY [facility] Last Admin: 02/21/19 08:58 Dose: 30 mg Losartan Potassium (Cozaar) 50 mg PO BID [facility] Last Admin: 02/21/19 08:58 Dose: 50 mg Morphine Sulfate (Morphine) 2 mg SLOW IVP Q4H PRN PRN Reason: Moderate Pain (4-6) Last Admin: 02/20/19 12:42 Dose: 2 mg Nitroglycerin (Nitrostat) 0.4 mg SL Q5MIN PRN PRN Reason: Chest Pain Last Admin: 02/20/19 12:35 Dose: 0.4 mg Ondansetron HCl (Zofran Odt) 4 mg PO Q6H PRN PRN Reason: Nausea/Vomiting Ondansetron HCl (Zofran) 4 mg IVP Q6H PRN PRN Reason: Nausea/Vomiting Sodium Chloride (Flush - Normal Saline) 10 ml IVF Q12HR PRN PRN Reason: Saline Flush Last Admin: 02/20/19 08:35 Dose: 10 ml Sodium Chloride (Flush - Normal Saline) 10 ml IVF PRN PRN PRN Reason: Saline Flush Ticagrelor (Brilinta) 90 mg PO BID [facility] Last Admin: 02/21/19 08:58 Dose: 90 mg Vital Signs & Weight: Vital Signs Temp Pulse Resp BP Pulse Ox 02/21/19 08:55 67 16 157/70 H 96 02/21/19 08:35 98 02/21/19 03:02 98 F 100 18 132/78 99 Admit Weight 160 lb 6.4 oz Weight 157 lb 1.6 oz - Physical Exam General: alert & oriented x3, other (pale, diaphoretic) HEENT: mucus membranes moist Neck: supple neck Cardiac: regular rate and rhythm Lungs: clear to auscultation Neuro: grossly intact Abdomen: soft, non-tender Extremities: no edema Skin: clear - Labs Result Diagrams: 02/21/19 10:56 02/20/19 05:55 Troponin/CKMB CK-MB (CK-2) 1.9 ng/mL (0-6.6) 02/20/19 18:55 Troponin I 0.279 ng/mL (< 0.028) H 02/20/19 18:55 - Telemetry Sinus rhythms and dysrhythmias: sinus rhythm - Assessment/Plan Assessment/Plan: 1. CP 2. CAD s/p PCI-LCx 3. HTN 4. DM-II Patient with similar CP yesterday. CKMB normal. Current labs pending. May need IVF bolus. Decrease losartan. Stop Norvasc. Continue nitrates. RG pt seen and examined Feels better than this am Still with some back, neck and shoulder pain Different from CP CK, trop (-) Echo with nromal EF check CT chest IV fluids times one liter
[2019-02-21 11:17] LABS: PTT 29.6 SEC (22.9-36.1); Prothrombin Time 13.6 SEC (12.0-14.7)
[2019-02-21 11:27] LABS: Troponin I 0.225 ng/mL (< 0.028)
[2019-02-21] MEDS ORDERED: Sodium Chloride 0.9% 500 ML IV SCH (11:45)
[2019-02-21] MEDS ORDERED: ISOVUE-370 76%-LOCM 1 ML ONE (13:19)
[2019-02-21 14:13] LABS: Hemoglobin 12.3 g/dL (12.0-16.0)
--- NOTE | 2019-02-21 14:25 | PRG ---
DATE OF SERVICE: 02/21/2019 SUBJECTIVE: The patient is seen and examined at the bedside. This morning after she took her morning medications, she became hypotensive. Her blood pressure dropped from 150 to below 100. She became dizzy and started having some pain in her shoulder and back. OBJECTIVE: VITAL SIGNS: Blood pressure 99/58, pulse 67, temperature 97.9, respirations 18, and O2 saturation is 98% on nasal cannula, I believe 1 L. HEENT: Her sclerae are nonicteric. Conjunctivae pinkish. Oral mucosa is moist. NECK: Supple. LUNGS: Clear. HEART: S1 and S2, somewhat irregular. No S3. No S4. ABDOMEN: Soft, nontender, and nondistended. EXTREMITIES: No clubbing, cyanosis, or edema. NEUROLOGIC: She is alert and oriented x3. There are no any motor deficits. LABORATORY DATA: Labs showed INR of 1.0, PT of 13.6, APTT of 29.6, and troponin I 0.293 and 0.279 from yesterday and 0.225 today. Her glycemia is ranging from 127 to 146. Echocardiogram showed LVEF estimated at 55% to 60% with mild tricuspid regurgitation and mild mitral regurgitation along with some sclerotic changes of aortic valve with normal excursion. IMPRESSION: 1. Acute coronary syndrome, status post percutaneous coronary intervention to the left circumflex artery. 2. Hypotension related to addition of long-acting nitrates with all other medications taking at one time in the morning, status post IV fluid bolus, 500 mL of normal saline and blood pressure improvement. 3. Diabetes mellitus type 2, chronic, stable. 4. Hypertension. 5. Vitiligo, chronic, stable. DISCUSSION: It was felt that her hypotension was secondary to addition of new medications, which is long-acting nitrates to her morning regimen which included losartan and Norvasc. Cardiology team made some adjustments with decreasing dose of losartan and stopping Norvasc. She will continue on her nitrates. She received 500 mL of normal saline bolus. Her CK-MB was normal. We are going to again postpone her discharge for additional 24 hours. She was not able to go home because of some chest pain she developed, which required additional diagnostic workup and additional 24-hour observation on telemetry floor. There were no any additional acute changes on her monitoring. Even during the episode when her blood pressure dropped, she was not tachycardic according to the monitors, so her discharge is postponed. We will check her hemoglobin and hematocrit just to make sure that she is not losing any blood, although externally we do not see any problem. Job ID: [id number]
[2019-02-21] MEDS: Sodium Chloride 0.9% 1,000 ML IV SCH ×2 (16:18→17:26)
--- NOTE | 2019-02-21 16:45 | CT ---
CTA CHEST WITH CONTRAST: INDICATIONS: Hypertension. Chest pain. TECHNIQUE: Axial tomograms obtained following pulmonary angio protocol. Multiplanar reconstruction and 3D post p rocessing. FINDINGS: The pulmonary arteries show adequate enhancement. There is no evidence of pulmonary embolus. The lung yanez are clear of infiltrate. There is no effusion. There are chronic changes in the upper lobes bilaterally with pleural-based interstitial markings and early honeycombing along the pleural surfaces bilaterally. The mediastinum is unremarkable. Images through the upper abdomen are unremarkable. Review of soft tissues reveals an enlarged lymph node in the right axillary region, measuring 2.8 to 3 cm. There are nonspecific mediastinal and hilar lymph nodes without evidence of mediastinal adenopa thy. Review of the soft tissues show suggestion of a nodular density in the inner right breast. This may b e significant given the large node in the right axilla. IMPRESSION: 1. No evidence of pulmonary embolus. 2. No acute lung process. Chronic lung changes are noted, as described above. 3. Right axillary adenopathy. Suggestion of a nodular mass density in the lower right breast on CT, m easuring 1.5 cm. Recommend clinical correlation and suggest followup with mammography and ultrasound. CODE T POS: OFF
[2019-02-21] MEDS: Atorvastatin Calcium 10 MG TAB PO SCH (20:03)
--- NOTE | 2019-02-22 06:27 | PDOC.CPN ---
- Subjective Date: 02/22/19 Time: 13:30 - Objective Allergies/Adverse Reactions: Allergies Allergy/AdvReac Type Severity Reaction Status Date / Time No Known Allergies Allergy Verified 02/18/19 01:33 Visit Medications: Current Medications Acetaminophen (Tylenol) 650 mg PO Q4H PRN PRN Reason: Headache/Fever/Mild Pain (1-3) Acetaminophen (Tylenol) 650 mg MA Q4H PRN PRN Reason: Headache/Fever/Mild Pain (1-3) Aspirin (Ecotrin) 81 mg PO DAILY [facility] Last Admin: 02/21/19 08:59 Dose: 81 mg Atorvastatin Calcium (Lipitor) 10 mg PO HS [facility] Last Admin: 02/21/19 20:03 Dose: 10 mg Carvedilol (Coreg) 6.25 mg PO BID-[facility] Last Admin: 02/21/19 17:32 Dose: 6.25 mg Dextrose/Water (Dextrose 50%) 25 gm SLOW IVP PRN PRN PRN Reason: Hypoglycemia Famotidine (Pepcid) 20 mg PO DAILY [facility] Last Admin: 02/21/19 08:59 Dose: 20 mg Fluoxetine HCl (Prozac) 20 mg PO DAILY [facility] Last Admin: 02/21/19 08:59 Dose: 20 mg Glucagon (Glucagon) 1 mg IM PRN PRN PRN Reason: Hypoglycemia Dextrose/Water (D5w) 1,000 mls @ 0 mls/hr IV .Q0M PRN PRN Reason: Hypoglycemia Insulin Human Lispro (Humalog) 0 units SC .MILD SLIDING SCALE PRN PRN Reason: Mild Correctional Scale Insulin Human Lispro (Humalog) 0 units SC .BEDTIME SLIDING SC PRN PRN Reason: Bedtime Correctional Scale Isosorbide Mononitrate (Imdur Er) 30 mg PO DAILY [facility] Last Admin: 02/21/19 08:58 Dose: 30 mg Losartan Potassium (Cozaar) 25 mg PO DAILY [facility] Morphine Sulfate (Morphine) 2 mg SLOW IVP Q4H PRN PRN Reason: Moderate Pain (4-6) Last Admin: 02/20/19 12:42 Dose: 2 mg Nitroglycerin (Nitrostat) 0.4 mg SL Q5MIN PRN PRN Reason: Chest Pain Last Admin: 02/20/19 12:35 Dose: 0.4 mg Ondansetron HCl (Zofran Odt) 4 mg PO Q6H PRN PRN Reason: Nausea/Vomiting Ondansetron HCl (Zofran) 4 mg IVP Q6H PRN PRN Reason: Nausea/Vomiting Sodium Chloride (Flush - Normal Saline) 10 ml IVF Q12HR PRN PRN Reason: Saline Flush Last Admin: 02/20/19 08:35 Dose: 10 ml Sodium Chloride (Flush - Normal Saline) 10 ml IVF PRN PRN PRN Reason: Saline Flush Ticagrelor (Brilinta) 90 mg PO BID [facility] Last Admin: 02/21/19 20:03 Dose: 90 mg Vital Signs & Weight: Vital Signs Temp Pulse Resp BP BP Pulse Ox 02/22/19 04:26 98.1 F 66 19 141/65 H 97 02/21/19 19:59 98.1 F 71 16 142/86 H 96 Admit Weight 160 lb 6.4 oz Weight 158 lb 4.8 oz - Physical Exam General: alert & oriented x3, appears well HEENT: normocephaly Neck: no masses, no bruit Cardiac: no murmur, regular rate, regular rhythm Lungs: no wheezes Neuro: grossly intact - Labs Result Diagrams: 02/22/19 08:44 02/22/19 08:44 Troponin/CKMB CK-MB (CK-2) 1.9 ng/mL (0-6.6) 02/20/19 18:55 Troponin I 0.225 ng/mL (< 0.028) H 02/21/19 10:56 - Assessment/Plan Assessment/Plan: CAD s/p stent hypotension Back, shoulder pain CKMB (-) CT chest also negative for dissectin, PE BP has normalized off imdur Stay off imdur recommend Brilinta, ASA, statin and coreg. Avoid imdur OK for DC; will sign off. Fu mat in 2-3 weeks
[2019-02-22] MEDS: Carvedilol 6.25 MG TAB PO SCH ×2 (08:30→17:29)
[2019-02-22] MEDS: Famotidine 20 MG TAB PO SCH (08:31)
[2019-02-22] MEDS: Isosorbide Mononitrate (ER) 30 MG TAB PO SCH (08:32)
[2019-02-22] MEDS: Losartan 25 MG TAB PO SCH (08:32)
[2019-02-22] MEDS: Aspirin 81 mg Enteric Coated Tablet PO SCH (08:32)
[2019-02-22] MEDS: FLUoxetine HCl 20 MG CAP PO SCH (08:32)
[2019-02-22] MEDS: TICAGRELOR 90 MG TABLET PO SCH ×2 (08:32→19:39)
[2019-02-22] MEDS: Ondansetron ODT 4 MG TAB PO PRN (08:32)
[2019-02-22 09:01] LABS: #Eosinphils 0.3 thou/uL (0.0-0.7); #Lymphocytes 1.5 thou/uL (1.20-3.40); #Monocytes 0.7 thou/uL (0.11-0.59); #Neutrophils 6.3 thou/uL (1.40-6.50); %Basophils 0.4 % (0.0-1.0); %Eosinophils 3.7 % (0.0-10.0); %Lymphocytes 17.3 % (21.0-51.0); %Monocytes 7.5 % (0.0-10.0); %Neutrophils 71.1 % (42.0-75.0); Mean Corpuscular HGB CONC 33.3 g/dL (32.0-36.0); Mean Corpuscular Hemoglobin 29.7 pg (27.0-31.0); Mean Corpuscular Volume 89.2 fL (78.0-98.0); Mean Platelet Volume 7.3 fL (7.4-10.4); Platelet Count 233 thou/uL (130-400); Red Blood Cell (RBC) Count 4.02 mill/uL (4.20-5.40); White Blood Cell (WBC) Count 8.8 thou/uL (4.8-10.8)
[2019-02-22 09:24] LABS: Anion Gap 10 mmol/L (10-20); BUN (Urea Nitrogen) 13 mg/dL (9.8-20.1); Calc. Creatinine Clearance 81 mL/min (70-130); Calcium 8.8 mg/dL (7.8-10.44); Carbon Dioxide 26 mmol/L (23-31); Chloride 106 mmol/L (98-107); Estimated GFR-MDRD 79; Glucose 156 mg/dL (80-115); Potassium 4.3 mmol/L (3.5-5.1); Sodium 138 mmol/L (136-145)
[2019-02-22] MEDS ORDERED: ALPRAZolam 0.5 MG TAB PO PRN (14:47)
--- NOTE | 2019-02-22 15:14 | PRG ---
DATE OF SERVICE: 02/22/2019 SUBJECTIVE: The patient is seen and examined at the bedside. She had some nausea this morning, and she got dizzy when she got up with PT. Her blood pressure systolic went down to 90s, and she felt dizzy. OBJECTIVE: VITAL SIGNS: Blood pressure is 128/65, pulse is 62, respiratory rate is 18, O2 saturation 96% on room air. HEENT: Head is atraumatic and normocephalic. Eyes are PERRLA. Sclerae are nonicteric. Oral mucosa is moist. NECK: Supple. LUNGS: Clear. HEART: S1 and S2 are normal. Front of the chest where the LINQ was placed looks good. There is no erythema. Mild swelling. ABDOMEN: Soft, obese, and nontender. EXTREMITIES: No clubbing, cyanosis, or edema. NEUROLOGIC: She follows my commands. She moves her all 4 extremities. There are no any motor deficits. LABORATORY DATA: Showed white count of 8.8, hemoglobin 12.0, hematocrit 35.9, platelet count is 233. Normal chemistry. Glycemia is ranging from 138 to 244. Calcium is 8.8. CT angiogram showed no PE, but there is a lymphadenopathy in the right axilla, and some suspicious mass in the lower part of the right breast. IMPRESSION: 1. Acute coronary syndrome, status post percutaneous coronary intervention to the left circumflex artery. 2. Hypotension related to use of several medications at the same time plus long-acting nitrates, which were added yesterday to the regimen. The hypotension was recurrent this morning, and nitrates were completely stopped, and her blood pressure medications yesterday were adjusted per Cardiology. 3. Diabetes mellitus, type 2. We are going to start her on metformin 1500 mg twice a day, which is her normal home dose. 4. Hypertension. 5. Vitiligo, chronic, stable. 6. Right axillary adenopathy and suspicious mass of the right breast. We will get ultrasound of this breast, and she will have mammogram after she is discharged home, so we are going to postpone her discharge today. We will see how she does without Imdur, and she will be discharged home tomorrow. Job ID: [id number]
[2019-02-22] MEDS: Atorvastatin Calcium 10 MG TAB PO SCH (19:38)
[2019-02-23] MEDS ORDERED: metFORMIN 500 MG TAB PO SCH (09:00)
[2019-02-23] MEDS: Carvedilol 6.25 MG TAB PO SCH ×2 (09:29→16:04)
[2019-02-23] MEDS: Famotidine 20 MG TAB PO SCH (09:30)
[2019-02-23] MEDS: Aspirin 81 mg Enteric Coated Tablet PO SCH (09:30)
[2019-02-23] MEDS: Losartan 25 MG TAB PO SCH (09:30)
[2019-02-23] MEDS: FLUoxetine HCl 20 MG CAP PO SCH (09:30)
[2019-02-23] MEDS: TICAGRELOR 90 MG TABLET PO SCH (09:31)
[2019-02-23] MEDS: Ondansetron ODT 4 MG TAB PO PRN (09:31)
[2019-02-23 11:20] VITALS: TEMP 98.5
[2019-02-23 16:03] VITALS: BP 166/72
--- NOTE | 2019-02-23 18:26 | EKG ---
Test Reason : ROUTINE Blood Pressure : / mmHG Vent. Rate : 071 BPM Atrial Rate : 071 BPM P-R Int : 156 ms QRS Dur : 090 ms QT Int : 420 ms P-R-T Axes : 024 031 099 degrees QTc Int : 456 ms Poor data quality, interpretation may be adversely affected Normal sinus rhythm Nonspecific ST and T wave abnormality Abnormal ECG When compared with ECG of 19-FEB-2019 09:18, Nonspecific T wave abnormality now evident in Anterior leads Confirmed by KAMRAN PLUNKETT, SAlanna (4) on 02/23/2019 6:26:30 PM Referred By: Confirmed By:DR. Junaid ANDREW MD
--- NOTE | 2019-02-23 18:29 | EKG ---
Test Reason : CP Blood Pressure : / mmHG Vent. Rate : 072 BPM Atrial Rate : 072 BPM P-R Int : 166 ms QRS Dur : 086 ms QT Int : 408 ms P-R-T Axes : 048 060 092 degrees QTc Int : 446 ms Normal sinus rhythm ST abnormality, possible digitalis effect Abnormal ECG When compared with ECG of 20-FEB-2019 01:34, (Unconfirmed) No significant change was found Confirmed by KAMRAN PLUNKETT, DR. S. (4) on 02/23/2019 6:29:06 PM Referred By: GASPER Confirmed By:DR. Junaid ANDREW MD
--- NOTE | 2019-02-23 18:29 | EKG ---
Test Reason : CODE GREEN Blood Pressure : / mmHG Vent. Rate : 070 BPM Atrial Rate : 070 BPM P-R Int : 160 ms QRS Dur : 078 ms QT Int : 410 ms P-R-T Axes : 047 070 094 degrees QTc Int : 442 ms Normal sinus rhythm Normal ECG When compared with ECG of 20-FEB-2019 12:32, (Unconfirmed) No significant change was found Confirmed by KAMRAN PLUNKETT, DR. S. (4) on 02/23/2019 6:29:27 PM Referred By: ALLISON Confirmed By:DR. Junaid ANDREW MD
--- NOTE | 2019-02-23 21:59 | DIS ---
DATE OF ADMISSION: 02/17/2019 DATE OF DISCHARGE: 02/23/2019 DIAGNOSES AT THE TIME OF ADMISSION: 1. Unstable angina versus non ST-elevation myocardial infarction. 2. Leukocytosis. 3. Hypertension. 4. Gastroesophageal reflux disease. 5. Diabetes mellitus. FINAL DIAGNOSES AT THE TIME OF DISCHARGE: 1. Acute coronary syndrome, status post percutaneous coronary intervention with stent placement to the left circumflex artery. 2. Hypotension related to use of several blood pressure lowering medications at the same time, resolved. 3. Diabetes mellitus type 2. 4. Hypertension. 5. Vitiligo. 6. Right axillary adenopathy with suspicious mass in the right breast, which showed up on the CT angiogram of the chest. CONSULTANTS: Dr. Adán Powell, Cardiology Service. PROCEDURE PERFORMED: Cardiac catheterization with PCI and stent placement to left circumflex artery. Please refer to the previous discharge summary which was dictated by me on the 20 of February. The patient's discharge was postponed because she became hypotensive after new agent Imdur was introduced. Also, she complained about some back pain at the same time and feeling dizzy. CT angiogram was done which showed no dissection. It showed also right axillary adenopathy and nodular mass density in the lower right breast approximately 1.5 cm. Echocardiogram showed LVEF estimated at 55% to 60% with mild mitral regurgitation, mild tricuspid regurgitation, aortic valve sclerosis with normal excursion. Today, the patient is doing well. Apparently, she had mammogram done recently at [facility] with her primary care physician and did not show any breast mass. Her blood pressure today is 152/72, pulse is 60, respirations 16, O2 saturation is 98% on room air, and temperature is 98.3. She is discharged home in good condition. She was seen and examined before she was discharged. FOLLOWUP: She is going to follow up with Dr. Powell in 2 weeks and with primary care physician in 1 week to further address findings on the CT angiogram in her right breast to rule out cancer. She will need to have biopsy done. MEDICATIONS: At the time of discharge: 1. Fluoxetine 20 mg once a day. 2. Metformin 1500 mg once a day. 3. Pantoprazole 40 mg once a day. 4. Ticagrelor 90 mg twice a day. 5. Losartan 25 mg daily. 6. Carvedilol 6.25 mg twice a day. 7. Atorvastatin 10 mg at bedtime. 8. Aspirin 81 mg once a day. 9. Tylenol p.r.n. as needed. DIET: She will stay on 2000 calories ADA diet. ACTIVITY: As tolerated. She will continue her Accu-Cheks and blood pressure checks at home and contact her primary physician or Dr. Powell if blood pressure is a problem. Job ID: [id number]
--- NOTE | 2019-02-25 08:09 | PQF ---
ROMIE RAJPUT ZBIGNIEW A MD [id number] [facility] [id number] CLINICAL DOCUMENTATION CLARIFICATION FORM: POST DISCHARGE Addendum to original discharge summary date: ____ Late entry note date: __ DATE:02-25-2019 ATTN:Major Chun Please exercise your independent, professional judgment in responding to the clarification form. Clinical indicators are provided on the bottom of this form for your review Can you please specify whether NSTEMI is ruled in or ruled out during this encounter? Please check appropriate box(s) to clarify if the following diagnosis has been ruled in or ruled out: NSTEMI [ x] Ruled in diagnosis [ ] Continue to treat [ x ] Resolved [ ] Ruled out diagnosis [ ] Cannot rule out diagnosis [ ] Other diagnosis please specify: [ ] Unable to determine For continuity of documentation, please document condition throughout progress notes and discharge summary. Thank You. CLINICAL INDICATORS: HP 02/18 "ustable angina vs non ST elevation myocardial infarction" ED Notes 02/17 "patient presents for evaluation of chest pain" HP 02/18 "The jaw feels tight and stiff" HP 02/18 "there was concern for unstable angina vs NSTEMI" PN 02/20 "Troponin mild increase likely secondary to recent stent" RISK FACTORS: ED Notes 02/17-68 years old female ED Notes 02/17-HTN ED Notes 02/17-HLD ED Notes 02/17-DM HP 02/18-Cardiomyopathy HP 02/18-CKD stage 3 HP 02/18-Former smoker DS 02/20-CAD DS 02/20-ACS TREATMENTS: Chest Xray-Collected 02/17 Echo-Collected 02/17 Cardiac Cath with [employer] 02/17 EKG-ED Notes 02/17 Nitroglycerin oitment-MAR 10/02 Morphine 2mg IV-JUL 26 Cardio Consult- 02/18 Brilinta 90mg Oral-JUL 26 (This form is maintained as a part of the permanent medical record) 2014 [employer]. All Rights Reserved [email or web address] [not provided] MTDD
== END 2019-02-23 17:12 | disposition home or self-care (01) | DRG 249 ==
LOC: ERS 20:09 → 2NO 22:13
PROVIDERS: ADMIT Hospitalist; ATTEND Hospitalist
PROC: 02703DZ Dilation of Coronary Artery, One Artery with Intraluminal Device, Percutaneous Approach (ICD-10-PCS; principal; 2019-02-17)
PROC: 4A023N7 Measurement of Cardiac Sampling and Pressure, Left Heart, Percutaneous Approach (ICD-10-PCS; 2019-02-17)
PROC: B2151ZZ Fluoroscopy of Left Heart using Low Osmolar Contrast (ICD-10-PCS; 2019-02-17)
PROC: B2111ZZ Fluoroscopy of Multiple Coronary Arteries using Low Osmolar Contrast (ICD-10-PCS; 2019-02-17)
PROC: 3E0234Z Introduction of Serum, Toxoid and Vaccine into Muscle, Percutaneous Approach (ICD-10-PCS; 2019-02-18)
DX: I21.4 Non-ST elevation (NSTEMI) myocardial infarction (principal); I42.9 Cardiomyopathy, unspecified; I25.110 Atherosclerotic heart disease of native coronary artery with unstable angina pectoris; E03.9 Hypothyroidism, unspecified; K21.9 Gastro-esophageal reflux disease without esophagitis; I12.9 Hypertensive chronic kidney disease with stage 1 through stage 4 chronic kidney disease, or unspecified chronic kidney disease; N18.3 Chronic kidney disease, stage 3 (moderate); F41.9 Anxiety disorder, unspecified; L80 Vitiligo; E11.22 Type 2 diabetes mellitus with diabetic chronic kidney disease; F32.9 Major depressive disorder, single episode, unspecified; I95.2 Hypotension due to drugs; T46.3X5A Adverse effect of coronary vasodilators, initial encounter; D72.829 Elevated white blood cell count, unspecified; R59.9 Enlarged lymph nodes, unspecified; I08.1 Rheumatic disorders of both mitral and tricuspid valves; Z90.49 Acquired absence of other specified parts of digestive tract; Z90.710 Acquired absence of both cervix and uterus; Z87.891 Personal history of nicotine dependence; Z79.899 Other long term (current) drug therapy; Z79.84 Long term (current) use of oral hypoglycemic drugs; Z23 Encounter for immunization; Z79.01 Long term (current) use of anticoagulants
CPT/HCPCS: 36415; 36416; 71045; 71250; 71275; 72125; 80048; 80053; 81003; 82553; 83605; 83690; 83735; 83880; 84145; 84443; 84484; 85014; 85018; 85025; 85347; 85379; 85610; 85652; 85730; 86140; 90471; 90662; 90670; 92928; 93005; 93010; 93306; 93454; 93798; 96372; 96374; 99152; C1769; C1876; G0008; G0009; J1644; J1650; J1885; J2001; J2250; J2270; J3010; Q0162; Q9966; Q9967; S0028

== ENCOUNTER 2020-06-07 14:43 | Emergency (ER) | payer MEDICARE, BC ==
--- NOTE | 2020-06-07 15:17 | RAD ---
Chest one view HISTORY: Fall. Injury. COMPARISON: 02/17/2019. FINDINGS: Cardiac silhouette is magnified by projection. Pulmonary vasculature are unremarkable. Mediastinum is midline with aortic calcification. Scattered areas of predominantly peripheral chronic interstitial thickening similar in appearance to the prior study. No lobar consolidation or evidence of pneumothorax. No displaced rib fracture apparent. IMPRESSION : No acute abnormalities are demonstrated.
[2020-06-07] MEDS ORDERED: Ketorolac Tromethamine 30 MG/ML VIAL ONE (15:41)
[2020-06-07] MEDS ORDERED: Morphine 4 MG/ML VIAL ONE (15:41)
--- NOTE | 2020-06-07 15:43 | CT ---
CT Brain WO Con: 06/07/2020 3:10 PM CLINICAL HISTORY: Fall. IMAGING TECHNIQUE: Multiple CT images were obtained of the brain without IV contrast. COMPARISON: CT the brain without contrast dated September 12, 2015 FINDINGS: BRAIN: Evidence of acute infarct: None. Evidence of chronic ischemic change:There is mild chronic small vessel matter ischemic change. Evidence of intracranial hemorrhage: None. Evidence of brain volume loss:None. Evidence of midline shift: Third ventricle and septum pellucidum are midline. Ventricles: Normal. No hydrocephalus. SKULL: There is a small, stable surface osteoma affecting the left frontal skull. VISUALIZED PARANASAL SINUSES: Clear. MASTOID AIR CELLS: Clear. EXTRACRANIAL SOFT TISSUES: Normal. IMPRESSION: No acute intracranial abnormality.
--- NOTE | 2020-06-07 15:56 | CT ---
CT CERVICAL SPINE WITHOUT CONTRAST: INDICATION: Trauma with fall and injury to neck with neck pain. COMPARISON: Comparison is made to CT cervical spine dated 02/18/2019. FINDINGS: Cervical vertebrae maintain height and alignment. The degenerative changes of the cervical spine are again noted with anterior osteophytes. Loss of disk space at C5-6 and C6-7 is stable. Prominent sp urring at C4-5 and C5-6 is stable. Foraminal narrowing on the right at C5-6 again noted. No evidence of fracture. IMPRESSION: Degenerative changes of the cervical spine appear stable from prior exam. No evidence of acute fract ure. POS: OFF
[2020-06-07 16:05] LABS: ALT (SGPT) 10 U/L (8-55); AST (SGOT) 20 U/L (5-34); Alkaline Phosphatase 90 U/L (40-110); Anion Gap 14 mmol/L (10-20); BUN (Urea Nitrogen) 15 mg/dL (9.8-20.1); Bilirubin, Total 0.6 mg/dL (0.2-1.2); Calc. Creatinine Clearance 0 mL/min (70-130); Carbon Dioxide 24 mmol/L (23-31); Chloride 101 mmol/L (98-107); Globulin 3.7 g/dL (2.4-3.5); Glucose 117 mg/dL (83-110); Potassium 3.9 mmol/L (3.5-5.1); Protein, Total 7.7 g/dL (6.0-8.3); Sodium 135 mmol/L (136-145)
== END 2020-06-07 18:20 | disposition home or self-care (01) ==
LOC: ERS 14:43
DX: R07.81 Pleurodynia (principal); E11.9 Type 2 diabetes mellitus without complications; I10 Essential (primary) hypertension; F17.210 Nicotine dependence, cigarettes, uncomplicated; Z79.84 Long term (current) use of oral hypoglycemic drugs; Z79.899 Other long term (current) drug therapy; W01.0XXA Fall on same level from slipping, tripping and stumbling without subsequent striking against object, initial encounter
CPT/HCPCS: 70450; 71045; 72125; 80053; 93005; 96374; 96375; J1885; J2270

== ENCOUNTER 2020-09-26 10:28 | Inpatient (IN) | payer MEDICARE, BC ==
[2020-09-26 10:48] LABS: #Basophils 0.1 thou/uL (0.0-0.2); #Eosinphils 0.4 thou/uL (0.0-0.7); #Lymphocytes 1.9 thou/uL (1.20-3.40); #Monocytes 0.5 thou/uL (0.11-0.59); #Neutrophils 7.5 thou/uL (1.40-6.50); %Basophils 0.8 % (0.0-1.0); %Eosinophils 4.2 % (0.0-10.0); %Monocytes 5.1 % (0.0-10.0); %Neutrophils 71.9 % (42.0-75.0); Hemoglobin 12.3 g/dL (12.0-16.0); Mean Corpuscular HGB CONC 31.2 g/dL (32.0-36.0); Mean Corpuscular Hemoglobin 27.3 pg (27.0-31.0); Mean Corpuscular Volume 87.4 fL (78.0-98.0); Mean Platelet Volume 7.4 fL (7.4-10.4); Platelet Count 299 thou/uL (130-400); RBC Distribution Width 12.6 % (11.5-14.5); White Blood Cell (WBC) Count 10.4 thou/uL (4.8-10.8)
[2020-09-26 11:25] LABS: ALT (SGPT) 9 U/L (8-55); AST (SGOT) 16 U/L (5-34); Albumin 4.1 g/dL (3.4-4.8); Alkaline Phosphatase 107 U/L (40-110); Anion Gap 13 mmol/L (10-20); BUN (Urea Nitrogen) 13 mg/dL (9.8-20.1); Bilirubin, Total 0.8 mg/dL (0.2-1.2); Calc. Creatinine Clearance 0 mL/min (70-130); Calcium 9.2 mg/dL (7.8-10.44); Carbon Dioxide 24 mmol/L (23-31); Chloride 103 mmol/L (98-107); Globulin 3.7 g/dL (2.4-3.5); Glucose 174 mg/dL (83-110); Protein, Total 7.8 g/dL (5.8-8.1); Sodium 136 mmol/L (136-145)
[2020-09-26] MEDS ORDERED: Nitroglycerin 2% Ointment 1 INCH/1 GM Packet ONE (11:41)
[2020-09-26] MEDS ORDERED: Aspirin Chewable 81 MG TAB ONE (11:41)
[2020-09-26] MEDS ORDERED: Nitroglycerin 0.4 MG TAB (25 Tab Bottle) SL PRN (12:01)
[2020-09-26] MEDS ORDERED: Ondansetron ODT 4 MG TAB PO PRN (12:06)
[2020-09-26] MEDS ORDERED: Dextrose 5% in Water 1,000 ML IV PRN (12:06)
[2020-09-26] MEDS ORDERED: Acetaminophen 325 MG TAB PO PRN ×2 (12:06→17:58)
[2020-09-26] MEDS ORDERED: HumaLOG 300 UNITS/3 ML VIAL SC PRN ×4 (12:06→19:37)
[2020-09-26] MEDS ORDERED: Ondansetron PF 4 MG/2 ML Vial IVP PRN (12:06)
[2020-09-26] MEDS ORDERED: Dextrose 50% Abboject 50 ML SYRINGE SLOW IVP PRN (12:06)
[2020-09-26 16:06] VITALS: BMI 29.0
[2020-09-26] MEDS: Nitroglycerin 2% Ointment 1 INCH/1 GM Packet TOP SCH ×2 (16:35→23:00)
[2020-09-26 17:11] LABS: Magnesium 1.5 mg/dL (1.6-2.6)
[2020-09-26 17:15] LABS: Troponin I Less than 0.010 ng/mL (< 0.028)
[2020-09-26] MEDS ORDERED: Magnesium 2 GM/50 ML 2 GM in Premix Bag 1 BAG IVPB SCH (17:30)
[2020-09-26] MEDS ORDERED: Enoxaparin Sodium 80 MG/0.8 ML SYRINGE SC SCH (18:15)
[2020-09-26] MEDS ORDERED: Communication Order-Pharmacy FS SCH (18:30)
[2020-09-26 20:24] LABS: Troponin I Less than 0.010 ng/mL (< 0.028)
[2020-09-26] MEDS: Carvedilol 6.25 MG TAB PO SCH (23:00)
[2020-09-26] MEDS: Atorvastatin Calcium 10 MG TAB PO SCH (23:00)
[2020-09-27] MEDS ORDERED: Sodium Chloride 0.9% 500 ML IV SCH ×2 (00:01→08:45)
[2020-09-27 05:26] LABS: #Basophils 0.1 thou/uL (0.0-0.2); #Eosinphils 0.5 thou/uL (0.0-0.7); #Lymphocytes 2.3 thou/uL (1.20-3.40); #Monocytes 0.6 thou/uL (0.11-0.59); #Neutrophils 6.8 thou/uL (1.40-6.50); %Basophils 0.9 % (0.0-1.0); %Eosinophils 4.7 % (0.0-10.0); %Lymphocytes 22.1 % (21.0-51.0); %Monocytes 6.1 % (0.0-10.0); %Neutrophils 66.3 % (42.0-75.0); Hemoglobin 11.2 g/dL (12.0-16.0); Mean Corpuscular HGB CONC 31.1 g/dL (32.0-36.0); Mean Corpuscular Volume 86.9 fL (78.0-98.0); Mean Platelet Volume 7.5 fL (7.4-10.4); Platelet Count 275 thou/uL (130-400); RBC Distribution Width 12.7 % (11.5-14.5); Red Blood Cell (RBC) Count 4.13 mill/uL (4.20-5.40); White Blood Cell (WBC) Count 10.3 thou/uL (4.8-10.8)
[2020-09-27 05:29] LABS: SARS-CoV-2 PCR by NAA Not Detected (NotDetected)
[2020-09-27] MEDS: Nitroglycerin 2% Ointment 1 INCH/1 GM Packet TOP SCH ×3 (05:40→21:16)
[2020-09-27] MEDS: Aspirin 81 mg Enteric Coated Tablet PO SCH (05:42)
[2020-09-27] MEDS: FLUoxetine HCl 20 MG CAP PO SCH (05:42)
[2020-09-27] MEDS: Losartan 25 MG TAB PO SCH (05:42)
[2020-09-27] MEDS: Clopidogrel Bisulfate 75 MG TAB PO SCH (05:43)
[2020-09-27] MEDS: Carvedilol 6.25 MG TAB PO SCH ×2 (05:46→21:13)
[2020-09-27 06:02] LABS: Anion Gap 11 mmol/L (10-20); BUN (Urea Nitrogen) 12 mg/dL (9.8-20.1); Calc. Creatinine Clearance 84 mL/min (70-130); Calcium 8.9 mg/dL (7.8-10.44); Carbon Dioxide 25 mmol/L (23-31); Cardiac Risk 3.4 (Less than 4.5); Chloride 106 mmol/L (98-107); Cholesterol 104 mg/dl (< 200 Desired); Glucose 127 mg/dL (83-110); HDL Cholesterol 31 mg/dL (>60 Neg Risk); LDL Cholesterol, Calculated 45 mg/dL; Potassium 3.7 mmol/L (3.5-5.1); Sodium 138 mmol/L (136-145); Triglycerides 138 mg/dL (Less than 150)
[2020-09-27] MEDS ORDERED: Lidocaine 1% (PF) 30 ML VIAL ONE (06:43)
[2020-09-27] MEDS ORDERED: Fentanyl 100 MCG/2 ML VIAL ONE (07:18)
[2020-09-27] MEDS ORDERED: Midazolam HCl 2 mg/2 ml Vial ONE (07:18)
[2020-09-27] MEDS ORDERED: Nitroglycerin 100MG/250ML BOT 250 ML ONE (08:12)
[2020-09-27] MEDS ORDERED: Heparin 10,000 UNITS/ 10 ML VIAL ONE (08:12)
[2020-09-27] MEDS ORDERED: Clopidogrel Bisulfate 300 MG TAB ONE (08:20)
[2020-09-27] MEDS ORDERED: Morphine 4 MG/ML VIAL SLOW IVP PRN (08:41)
[2020-09-27] MEDS ORDERED: Iopamidol 370 76% 50 ML VIAL FS ONE (08:49)
[2020-09-27] MEDS ORDERED: Iopamidol 370 76% 100 ML VIAL ONE (08:49)
[2020-09-27] MEDS ORDERED: Enoxaparin Sodium 80 MG/0.8 ML SYRINGE SC SCH (09:00)
[2020-09-27] MEDS: Atorvastatin Calcium 10 MG TAB PO SCH (21:13)
[2020-09-28 05:03] LABS: #Eosinphils 0.4 thou/uL (0.0-0.7); #Lymphocytes 1.4 thou/uL (1.20-3.40); #Monocytes 0.5 thou/uL (0.11-0.59); #Neutrophils 5.6 thou/uL (1.40-6.50); %Basophils 0.2 % (0.0-1.0); %Eosinophils 4.4 % (0.0-10.0); %Lymphocytes 18.2 % (21.0-51.0); %Monocytes 6.7 % (0.0-10.0); %Neutrophils 70.5 % (42.0-75.0); Hemoglobin 10.8 g/dL (12.0-16.0); Mean Corpuscular Hemoglobin 28.4 pg (27.0-31.0); Mean Corpuscular Volume 88.7 fL (78.0-98.0); Mean Platelet Volume 7.2 fL (7.4-10.4); Platelet Count 274 thou/uL (130-400); RBC Distribution Width 12.6 % (11.5-14.5); Red Blood Cell (RBC) Count 3.79 mill/uL (4.20-5.40); White Blood Cell (WBC) Count 7.9 thou/uL (4.8-10.8)
[2020-09-28 05:25] LABS: ALT (SGPT) 8 U/L (8-55); AST (SGOT) 16 U/L (5-34); Albumin 3.4 g/dL (3.4-4.8); Alkaline Phosphatase 92 U/L (40-110); Anion Gap 12 mmol/L (10-20); BUN (Urea Nitrogen) 10 mg/dL (9.8-20.1); Bilirubin, Total 0.5 mg/dL (0.2-1.2); Calc. Creatinine Clearance 85 mL/min (70-130); Calcium 8.5 mg/dL (7.8-10.44); Carbon Dioxide 22 mmol/L (23-31); Chloride 107 mmol/L (98-107); Glucose 136 mg/dL (83-110); Potassium 4.1 mmol/L (3.5-5.1); Protein, Total 6.4 g/dL (5.8-8.1); Sodium 137 mmol/L (136-145)
[2020-09-28] MEDS: Nitroglycerin 2% Ointment 1 INCH/1 GM Packet TOP SCH (06:21)
[2020-09-28] MEDS: Aspirin 81 mg Enteric Coated Tablet PO SCH (07:35)
[2020-09-28] MEDS: Losartan 25 MG TAB PO SCH (07:35)
[2020-09-28] MEDS: FLUoxetine HCl 20 MG CAP PO SCH (07:35)
[2020-09-28] MEDS: Carvedilol 6.25 MG TAB PO SCH (07:36)
[2020-09-28] MEDS: Clopidogrel Bisulfate 75 MG TAB PO SCH (07:36)
[2020-09-28 11:25] VITALS: TEMP 97.8
[2020-09-28 13:13] VITALS: BP 122/56
== END 2020-09-28 14:40 | disposition home or self-care (01) | DRG 247 ==
LOC: ERS 10:28 → 2SW 11:34 → OBSVTOIN 09-27 16:17
PROVIDERS: ADMIT Family Medicine; ATTEND Hospitalist
PROC: 027034Z Dilation of Coronary Artery, One Artery with Drug-eluting Intraluminal Device, Percutaneous Approach (ICD-10-PCS; principal; 2020-09-27)
PROC: 4A023N7 Measurement of Cardiac Sampling and Pressure, Left Heart, Percutaneous Approach (ICD-10-PCS; 2020-09-27)
PROC: B2151ZZ Fluoroscopy of Left Heart using Low Osmolar Contrast (ICD-10-PCS; 2020-09-27)
PROC: B2111ZZ Fluoroscopy of Multiple Coronary Arteries using Low Osmolar Contrast (ICD-10-PCS; 2020-09-27)
DX: I25.110 Atherosclerotic heart disease of native coronary artery with unstable angina pectoris (principal); Z20.822 Contact with and (suspected) exposure to COVID-19; I10 Essential (primary) hypertension; E78.5 Hyperlipidemia, unspecified; E11.9 Type 2 diabetes mellitus without complications; K21.9 Gastro-esophageal reflux disease without esophagitis; F32.9 Major depressive disorder, single episode, unspecified; F17.210 Nicotine dependence, cigarettes, uncomplicated; Z79.84 Long term (current) use of oral hypoglycemic drugs; Z79.899 Other long term (current) drug therapy; Z90.49 Acquired absence of other specified parts of digestive tract; Z90.710 Acquired absence of both cervix and uterus; Z79.01 Long term (current) use of anticoagulants
CPT/HCPCS: 36415; 36416; 71045; 80048; 80053; 80061; 83690; 83735; 83880; 84484; 85025; 85347; 87635; 92928; 93005; 93010; 93306; 93458; 93798; 94760; 96365; 96372; 99152; 99153; C1769; C9600; G0378; J0153; J1644; J1650; J2001; J2250; J3010; J3475; Q9967; U0003; U0005

== ENCOUNTER 2021-06-24 11:55 | Emergency (ER) | payer MEDICARE, BC ==
[2021-06-24] MEDS ORDERED: Fentanyl 100 MCG/2 ML VIAL ONE (13:01)
[2021-06-24] MEDS ORDERED: Phenylephrine 10 MG/ML VIAL ONE (13:01)
[2021-06-24 14:07] LABS: #Eosinphils 0.4 thou/uL (0.0-0.7); #Lymphocytes 2.3 thou/uL (1.20-3.40); #Monocytes 0.7 thou/uL (0.11-0.59); #Neutrophils 7.5 thou/uL (1.40-6.50); %Basophils 0.2 % (0.0-1.0); %Eosinophils 3.3 % (0.0-10.0); %Lymphocytes 21.3 % (21.0-51.0); %Monocytes 6.5 % (0.0-10.0); %Neutrophils 68.6 % (42.0-75.0); Mean Corpuscular HGB CONC 33.8 g/dL (32.0-36.0); Mean Corpuscular Hemoglobin 29.7 pg (27.0-31.0); Mean Corpuscular Volume 87.9 fL (78.0-98.0); Platelet Count 278 thou/uL (130-400); RBC Distribution Width 12.9 % (11.5-14.5); Red Blood Cell (RBC) Count 4.03 mill/uL (4.20-5.40); White Blood Cell (WBC) Count 10.9 thou/uL (4.8-10.8)
[2021-06-24] MEDS ORDERED: Acetaminophen 325 MG TAB ONE (14:10)
[2021-06-24 14:23] LABS: Anion Gap 11 mmol/L (10-20); BUN (Urea Nitrogen) 15 mg/dL (9.8-20.1); CRP (Inflammatory) Less than 0.50 mg/dL (= or < 0.5); Calc. Creatinine Clearance 0 mL/min (70-130); Calcium 9.4 mg/dL (7.8-10.44); Carbon Dioxide 27 mmol/L (23-31); Chloride 105 mmol/L (98-107); Glucose 97 mg/dL (83-110); Potassium 5.1 mmol/L (3.5-5.1); Sodium 138 mmol/L (136-145)
[2021-06-24] MEDS ORDERED: Ketorolac Tromethamine 30 MG/ML VIAL ONE (18:04)
== END 2021-06-24 22:20 ==
LOC: ERS 11:55
DX: M79.652 Pain in left thigh (principal); M79.662 Pain in left lower leg; I10 Essential (primary) hypertension; E11.9 Type 2 diabetes mellitus without complications; Z87.891 Personal history of nicotine dependence; Z79.84 Long term (current) use of oral hypoglycemic drugs; Z79.899 Other long term (current) drug therapy
CPT/HCPCS: 36415; 80048; 85025; 86140; 96372; J1885; J2370; J3010

== ENCOUNTER 2022-02-23 06:17 | Inpatient (IN) | payer MEDICARE, BC ==
[2022-02-23 07:24] LABS: INR-International Normal Ratio 1.1; Prothrombin Time 14.3 sec (12.0-14.7)
[2022-02-23 07:25] LABS: PTT 31.9 sec (22.9-36.1)
[2022-02-23 07:28] LABS: ALT (SGPT) Less than 7 U/L (8-55); AST (SGOT) 13 U/L (5-34); Albumin 3.6 g/dL (3.4-4.8); Alkaline Phosphatase 64 U/L (40-110); Anion Gap 10 mmol/L (10-20); BUN (Urea Nitrogen) 14 mg/dL (9.8-20.1); Bilirubin, Total 0.5 mg/dL (0.2-1.2); Calc. Creatinine Clearance 0 mL/min (70-130); Calcium 8.8 mg/dL (7.8-10.44); Carbon Dioxide 26 mmol/L (23-31); Chloride 102 mmol/L (98-107); Estimated GFR 85; Globulin 2.9 g/dL (2.4-3.5); Glucose 153 mg/dL (83-110); Potassium 3.9 mmol/L (3.5-5.1); Protein, Total 6.5 g/dL (5.8-8.1); Sodium 134 mmol/L (136-145)
[2022-02-23 07:37] LABS: #Eosinphils 0.3 thou/uL (0.0-0.7); #Lymphocytes 1.8 thou/uL (1.20-3.40); #Monocytes 0.4 thou/uL (0.11-0.59); #Neutrophils 7.5 thou/uL (1.40-6.50); %Basophils 0.4 % (0.0-1.0); %Eosinophils 2.7 % (0.0-10.0); %Lymphocytes 17.5 % (21.0-51.0); %Monocytes 4.4 % (0.0-10.0); %Neutrophils 74.9 % (42.0-75.0); Hemoglobin 9.4 g/dL (12.0-16.0); Mean Corpuscular HGB CONC 32.1 g/dL (32.0-36.0); Mean Corpuscular Hemoglobin 28.6 pg (27.0-31.0); Mean Corpuscular Volume 89.1 fL (78.0-98.0); Mean Platelet Volume 7.2 fL (7.4-10.4); Platelet Count 277 thou/uL (130-400); RBC Distribution Width 12.3 % (11.5-14.5); Red Blood Cell (RBC) Count 3.29 mill/uL (4.20-5.40)
[2022-02-23] MEDS ORDERED: metroNIDAZOLE 500 MG/100 ML BAG ONE (08:20)
[2022-02-23] MEDS ORDERED: Pantoprazole 40 MG VIAL ONE (08:20)
[2022-02-23] MEDS ORDERED: Iopamidol 370 76% 100 ML VIAL ONE (09:55)
[2022-02-23] MEDS ORDERED: Acetaminophen 325 MG TAB PO PRN (10:18)
[2022-02-23] MEDS ORDERED: Ondansetron PF 4 MG/2 ML Vial IVP PRN (10:18)
[2022-02-23] MEDS ORDERED: Dextrose 50% Abboject 50 ML SYRINGE SLOW IVP PRN (10:21)
[2022-02-23] MEDS ORDERED: Dextrose 5% in Water 1,000 ML IV PRN (10:21)
[2022-02-23] MEDS ORDERED: HumaLOG 300 UNITS/3 ML VIAL SC PRN ×2 (10:21)
[2022-02-23] MEDS ORDERED: Sodium Chloride 0.9% 500 ML IV SCH (10:30)
[2022-02-23] MEDS ORDERED: Nicotine 7 MG PATCH TD PRN (10:30)
[2022-02-23] MEDS: Sodium Chloride 0.9% 1,000 ML IV SCH ×2 (11:59→22:14)
[2022-02-23 13:23] VITALS: BMI 26.1
[2022-02-23] MEDS: metroNIDAZOLE 500 MG in Premix Bag 1 BAG IVPB SCH (16:15)
[2022-02-23] MEDS: Carvedilol 3.125 MG TAB PO SCH (16:23)
[2022-02-23] MEDS ORDERED: GoLYTELY 4,000 ml Bottle PO SCH (17:00)
[2022-02-23 17:19] LABS: Hemoglobin 7.5 g/dL (12.0-16.0)
[2022-02-23] MEDS: Pantoprazole 40 MG VIAL IVP SCH (22:11)
[2022-02-24] MEDS: metroNIDAZOLE 500 MG in Premix Bag 1 BAG IVPB SCH ×3 (01:28→17:22)
[2022-02-24 01:41] LABS: Hemoglobin 8.9 g/dL (12.0-16.0)
[2022-02-24 03:46] LABS: #Basophils 0.1 thou/uL (0.0-0.2); #Eosinphils 0.2 thou/uL (0.0-0.7); #Lymphocytes 2.4 thou/uL (1.20-3.40); #Monocytes 0.7 thou/uL (0.11-0.59); #Neutrophils 7.9 thou/uL (1.40-6.50); %Basophils 0.5 % (0.0-1.0); %Eosinophils 1.9 % (0.0-10.0); %Lymphocytes 21.1 % (21.0-51.0); %Monocytes 6.1 % (0.0-10.0); %Neutrophils 70.4 % (42.0-75.0); Hemoglobin 9.4 g/dL (12.0-16.0); Mean Corpuscular HGB CONC 32.8 g/dL (32.0-36.0); Mean Corpuscular Hemoglobin 29.3 pg (27.0-31.0); Mean Corpuscular Volume 89.1 fL (78.0-98.0); Mean Platelet Volume 7.1 fL (7.4-10.4); Platelet Count 232 thou/uL (130-400); RBC Distribution Width 12.6 % (11.5-14.5); White Blood Cell (WBC) Count 11.2 thou/uL (4.8-10.8)
[2022-02-24 03:55] LABS: Anion Gap 8 mmol/L (10-20); BUN (Urea Nitrogen) 10 mg/dL (9.8-20.1); Calc. Creatinine Clearance 89 mL/min (70-130); Calcium 8.2 mg/dL (7.8-10.44); Carbon Dioxide 24 mmol/L (23-31); Chloride 109 mmol/L (98-107); Estimated GFR 94; Glucose 100 mg/dL (83-110); Potassium 3.4 mmol/L (3.5-5.1); Sodium 138 mmol/L (136-145)
[2022-02-24] MEDS ORDERED: Electrolyte Replacement Protocol 1 EACH FS SCH (05:30)
[2022-02-24] MEDS: Sodium Chloride 0.9% 1,000 ML IV SCH (06:08)
[2022-02-24] MEDS: Pantoprazole 40 MG VIAL IVP SCH (07:21)
[2022-02-24] MEDS: Carvedilol 3.125 MG TAB PO SCH (07:21)
[2022-02-24] MEDS ORDERED: Potassium Chloride 40 MEQ in Sodium Chloride 0.9% 250 ML 250 ML IVPB SCH (09:00)
[2022-02-24] MEDS ORDERED: PROPOFOL 200 MG/20 ML VIAL ONE (10:35)
[2022-02-24] MEDS ORDERED: Lidocaine 1% PF 5 ML VIAL ONE (10:35)
[2022-02-24] MEDS ORDERED: Ondansetron HCl/PF 4 MG/2 ML Vial IVP PRN (11:41)
[2022-02-24] MEDS: Atorvastatin Calcium 10 MG TAB PO SCH (21:42)
[2022-02-24] MEDS: Carvedilol 6.25 MG TAB PO SCH (21:42)
[2022-02-25] MEDS: metroNIDAZOLE 500 MG in Premix Bag 1 BAG IVPB SCH ×3 (01:07→17:19)
[2022-02-25 04:22] LABS: #Basophils 0.1 thou/uL (0.0-0.2); #Eosinphils 0.3 thou/uL (0.0-0.7); #Monocytes 0.7 thou/uL (0.11-0.59); #Neutrophils 7.7 thou/uL (1.40-6.50); %Basophils 1.3 % (0.0-1.0); %Eosinophils 3.1 % (0.0-10.0); %Lymphocytes 18.2 % (21.0-51.0); %Monocytes 6.5 % (0.0-10.0); %Neutrophils 70.9 % (42.0-75.0); Hemoglobin 9.3 g/dL (12.0-16.0); Mean Corpuscular HGB CONC 33.3 g/dL (32.0-36.0); Mean Corpuscular Hemoglobin 29.7 pg (27.0-31.0); Mean Corpuscular Volume 89.2 fL (78.0-98.0); Mean Platelet Volume 6.9 fL (7.4-10.4); Platelet Count 255 thou/uL (130-400); RBC Distribution Width 12.6 % (11.5-14.5); Red Blood Cell (RBC) Count 3.12 mill/uL (4.20-5.40); White Blood Cell (WBC) Count 10.8 thou/uL (4.8-10.8)
[2022-02-25 04:42] LABS: Anion Gap 13 mmol/L (10-20); BUN (Urea Nitrogen) 4 mg/dL (9.8-20.1); Calc. Creatinine Clearance 86 mL/min (70-130); Calcium 8.8 mg/dL (7.8-10.44); Carbon Dioxide 20 mmol/L (23-31); Chloride 107 mmol/L (98-107); Estimated GFR 94; Glucose 110 mg/dL (83-110); Magnesium 1.5 mg/dL (1.6-2.6); Potassium 3.3 mmol/L (3.5-5.1); Sodium 137 mmol/L (136-145)
[2022-02-25] MEDS ORDERED: Potassium Chloride 20 MEQ TAB PO SCH (06:30)
[2022-02-25] MEDS ORDERED: Magnesium Sulfate In Water 4 GM in Premix Bag 1 BAG IVPB SCH (06:30)
[2022-02-25] MEDS: Losartan 25 MG TAB PO SCH (08:42)
[2022-02-25] MEDS: Pantoprazole 40 MG VIAL IVP SCH (08:42)
[2022-02-25] MEDS: Carvedilol 6.25 MG TAB PO SCH ×2 (08:42→19:46)
[2022-02-25] MEDS ORDERED: Lidocaine 5% Patch TD SCH (12:15)
[2022-02-25] MEDS: Atorvastatin Calcium 10 MG TAB PO SCH (19:47)
[2022-02-25] MEDS: Transdermal Patch Removal TOP SCH (21:33)
[2022-02-26] MEDS: metroNIDAZOLE 500 MG in Premix Bag 1 BAG IVPB SCH ×3 (01:10→16:23)
[2022-02-26 04:24] LABS: Anion Gap 11 mmol/L (10-20); BUN (Urea Nitrogen) 8 mg/dL (9.8-20.1); Calc. Creatinine Clearance 80 mL/min (70-130); Calcium 8.5 mg/dL (7.8-10.44); Carbon Dioxide 22 mmol/L (23-31); Chloride 107 mmol/L (98-107); Estimated GFR 92; Glucose 125 mg/dL (83-110); Magnesium 1.9 mg/dL (1.6-2.6); Potassium 4.3 mmol/L (3.5-5.1); Sodium 136 mmol/L (136-145)
[2022-02-26 07:21] LABS: #Basophils 0.1 thou/uL (0.0-0.2); #Eosinphils 0.3 thou/uL (0.0-0.7); #Lymphocytes 1.8 thou/uL (1.20-3.40); #Monocytes 0.6 thou/uL (0.11-0.59); %Basophils 0.6 % (0.0-1.0); %Eosinophils 3.1 % (0.0-10.0); %Lymphocytes 18.3 % (21.0-51.0); %Monocytes 5.8 % (0.0-10.0); %Neutrophils 72.2 % (42.0-75.0); Hemoglobin 8.9 g/dL (12.0-16.0); Mean Corpuscular HGB CONC 32.6 g/dL (32.0-36.0); Mean Corpuscular Hemoglobin 29.2 pg (27.0-31.0); Mean Corpuscular Volume 89.3 fL (78.0-98.0); Mean Platelet Volume 6.7 fL (7.4-10.4); Platelet Count 265 thou/uL (130-400); RBC Distribution Width 12.7 % (11.5-14.5); Red Blood Cell (RBC) Count 3.04 mill/uL (4.20-5.40); White Blood Cell (WBC) Count 9.8 thou/uL (4.8-10.8)
[2022-02-26] MEDS: Losartan 25 MG TAB PO SCH (08:18)
[2022-02-26] MEDS: Carvedilol 6.25 MG TAB PO SCH ×2 (08:18→20:34)
[2022-02-26] MEDS: Lidocaine 5% Patch TD SCH (08:18)
[2022-02-26] MEDS: Pantoprazole 40 MG VIAL IVP SCH (08:18)
[2022-02-26] MEDS: Atorvastatin Calcium 10 MG TAB PO SCH (20:34)
[2022-02-26] MEDS: Transdermal Patch Removal TOP SCH (20:34)
[2022-02-27] MEDS: metroNIDAZOLE 500 MG in Premix Bag 1 BAG IVPB SCH ×2 (01:18→10:04)
[2022-02-27 06:31] LABS: #Basophils 0.1 thou/uL (0.0-0.2); #Eosinphils 0.3 thou/uL (0.0-0.7); #Monocytes 0.8 thou/uL (0.11-0.59); #Neutrophils 6.8 thou/uL (1.40-6.50); %Basophils 0.7 % (0.0-1.0); %Eosinophils 3.3 % (0.0-10.0); %Lymphocytes 20.3 % (21.0-51.0); %Monocytes 7.6 % (0.0-10.0); %Neutrophils 68.1 % (42.0-75.0); Hemoglobin 8.9 g/dL (12.0-16.0); Mean Corpuscular HGB CONC 31.9 g/dL (32.0-36.0); Mean Corpuscular Hemoglobin 28.8 pg (27.0-31.0); Mean Corpuscular Volume 90.3 fL (78.0-98.0); Platelet Count 292 thou/uL (130-400); RBC Distribution Width 13.1 % (11.5-14.5); Red Blood Cell (RBC) Count 3.07 mill/uL (4.20-5.40)
[2022-02-27 06:47] LABS: Anion Gap 12 mmol/L (10-20); BUN (Urea Nitrogen) 10 mg/dL (9.8-20.1); Calc. Creatinine Clearance 75 mL/min (70-130); Calcium 8.6 mg/dL (7.8-10.44); Carbon Dioxide 23 mmol/L (23-31); Chloride 106 mmol/L (98-107); Estimated GFR 87; Glucose 119 mg/dL (83-110); Magnesium 1.7 mg/dL (1.6-2.6); Sodium 137 mmol/L (136-145)
[2022-02-27] MEDS: Losartan 25 MG TAB PO SCH (10:03)
[2022-02-27] MEDS: Carvedilol 6.25 MG TAB PO SCH (10:03)
[2022-02-27] MEDS: Lidocaine 5% Patch TD SCH (10:03)
[2022-02-27] MEDS: Pantoprazole 40 MG VIAL IVP SCH (10:04)
[2022-02-27 16:59] VITALS: BP 123/80; TEMP 98
[2022-02-28] MEDS ORDERED: Aspirin 81 mg Enteric Coated Tablet PO SCH (09:00)
== END 2022-02-27 16:59 | disposition home or self-care (01) | DRG 394 ==
LOC: ERS 06:17 → INTOOBSV 09:01 → T4-B 09:01 → IMCU/EMU 19:25 → OBSVTOIN 02-25 09:12 → T4-A 02-26 09:00
PROVIDERS: ADMIT Family Medicine; ATTEND Family Medicine
PROC: 30233N1 Transfusion of Nonautologous Red Blood Cells into Peripheral Vein, Percutaneous Approach (ICD-10-PCS; 2022-02-23)
PROC: 0DJ08ZZ Inspection of Upper Intestinal Tract, Via Natural or Artificial Opening Endoscopic (ICD-10-PCS; principal; 2022-02-24)
PROC: 0DBN8ZX Excision of Sigmoid Colon, Via Natural or Artificial Opening Endoscopic, Diagnostic (ICD-10-PCS; 2022-02-24)
DX: K55.9 Vascular disorder of intestine, unspecified (principal); D62 Acute posthemorrhagic anemia; E87.1 Hypo-osmolality and hyponatremia; K63.3 Ulcer of intestine; J98.11 Atelectasis; Z20.822 Contact with and (suspected) exposure to COVID-19; I10 Essential (primary) hypertension; E78.5 Hyperlipidemia, unspecified; F39 Unspecified mood [affective] disorder; K21.9 Gastro-esophageal reflux disease without esophagitis; F17.210 Nicotine dependence, cigarettes, uncomplicated; I73.9 Peripheral vascular disease, unspecified; K64.8 Other hemorrhoids; I25.10 Atherosclerotic heart disease of native coronary artery without angina pectoris; F32.A Depression, unspecified; E11.9 Type 2 diabetes mellitus without complications; Z79.82 Long term (current) use of aspirin; Z79.899 Other long term (current) drug therapy; Z86.73 Personal history of transient ischemic attack (TIA), and cerebral infarction without residual deficits; Z90.710 Acquired absence of both cervix and uterus; Z90.49 Acquired absence of other specified parts of digestive tract; Z79.01 Long term (current) use of anticoagulants; Z79.84 Long term (current) use of oral hypoglycemic drugs
CPT/HCPCS: 36415; 36416; 36430; 70450; 71045; 72125; 74177; 80048; 80053; 83735; 85025; 85610; 85730; 86850; 86900; 86901; 88305; 93005; 96372; 96374; 96375; 96376; C9113; G0378; J1956; J2704; J3475; J3480; J7030; J7050; P9016; Q9967; U0003; U0005

== ENCOUNTER 2023-05-06 10:18 | Inpatient (IN) | payer MEDICARE, BC ==
[2023-05-06] MEDS ORDERED: Iopamidol 370 76% 100 ML VIAL ONE (11:03)
[2023-05-06 11:28] LABS: #Eosinphils 2.6 thou/uL (0.0-0.7); #Neutrophils 8.9 thou/uL (1.40-6.50); %Basophils 0.2 % (0.0-1.0); %Eosinophils 18.8 % (0.0-10.0); %Lymphocytes 8.3 % (21.0-51.0); %Monocytes 7.2 % (0.0-10.0); %Neutrophils 65.2 % (42.0-75.0); Hematocrit 35.2 % (36.0-47.0); Hemoglobin 10.6 g/dL (12.0-16.0); Mean Corpuscular HGB CONC 30.1 g/dL (32.0-36.0); Mean Corpuscular Hemoglobin 24.9 pg (27.0-31.0); Mean Corpuscular Volume 82.8 fl (78.0-98.0); Platelet Count 383 10x3/uL (130-400); RBC Distribution Width 14.6 % (11.5-14.5); Red Blood Cell (RBC) Count 4.25 mill/uL (4.20-5.40); White Blood Cell (WBC) Count 13.7 10x3/uL (4.8-10.8)
[2023-05-06 11:40] LABS: INR-International Normal Ratio 1.1; Prothrombin Time 15.1 sec (12.0-14.7)
[2023-05-06 11:50] LABS: ALT (SGPT) 8 U/L (8-55); AST (SGOT) 17 U/L (5-34); Albumin 3.6 g/dL (3.4-4.8); Alkaline Phosphatase 88 U/L (40-110); Anion Gap 15 mmol/L (10-20); BUN (Urea Nitrogen) 9 mg/dL (9.8-20.1); Bilirubin, Total 0.6 mg/dL (0.2-1.2); Calc. Creatinine Clearance 0 mL/min (70-130); Calcium 8.7 mg/dL (7.8-10.44); Carbon Dioxide 21 mmol/L (23-31); Chloride 101 mmol/L (98-107); Estimated GFR 61; Globulin 4.7 g/dL (2.4-3.5); Glucose 165 mg/dL (83-110); Lipase 6 U/L (8-78); Potassium 4.6 mmol/L (3.5-5.1); Protein, Total 8.3 g/dL (5.8-8.1); Sodium 132 mmol/L (136-145)
[2023-05-06] MEDS ORDERED: LevoFLOXacin 750 mg/D5W 150 ml Premix Bag ONE (13:04)
[2023-05-06] MEDS ORDERED: Morphine 4 MG/ML VIAL ONE (13:05)
[2023-05-06] MEDS ORDERED: metroNIDAZOLE 500 MG/100 ML BAG ONE (14:04)
[2023-05-06] MEDS ORDERED: Ondansetron PF 4 MG/2 ML Vial IVP PRN (14:09)
[2023-05-06] MEDS ORDERED: Sodium Chloride 0.9% 1,000 ML IV SCH (14:15)
[2023-05-06] MEDS ORDERED: Dextrose 50% Abboject 50 ML SYRINGE SLOW IVP PRN (15:10)
[2023-05-06] MEDS ORDERED: Glucagon 1 MG/ML KIT IM PRN (15:10)
[2023-05-06] MEDS ORDERED: Dextrose 5% in Water 1,000 ML IV PRN (15:10)
[2023-05-06 15:51] VITALS: BMI 30.4
[2023-05-06] MEDS: Ondansetron ODT 4 MG TAB PO PRN (17:51)
[2023-05-06] MEDS ORDERED: Dextrose 5 %-0.45 % NaCl 1,000 ML IV SCH (20:30)
[2023-05-06] MEDS: Acetaminophen 325 MG TAB PO PRN (20:32)
[2023-05-06] MEDS ORDERED: metroNIDAZOLE 500 MG in Premix 1 BAG IVPB SCH (22:00)
[2023-05-06] MEDS ORDERED: methylPREDNISolone Sod Succ 40 MG VIAL IVP SCH (22:00)
[2023-05-07 04:38] LABS: Campy jejuni + coli by PCR Negative (Negative); STEC Shiga Toxin 1+2 Negative (Negative); Salmonella spp. by PCR Negative (Negative); Shigella spp + EIEC by PCR Negative (Negative)
[2023-05-07] MEDS: metroNIDAZOLE 500 MG in Premix 1 BAG IVPB SCH ×3 (04:56→22:17)
[2023-05-07 06:08] LABS: Hematocrit 31.3 % (36.0-47.0); Hemoglobin 9.5 g/dL (12.0-16.0); Manual Diff?? YES; Mean Corpuscular HGB CONC 30.4 g/dL (32.0-36.0); Mean Corpuscular Volume 82.4 fl (78.0-98.0); Mean Platelet Volume 9.2 fL (7.4-10.4); Platelet Count 364 10x3/uL (130-400); RBC Distribution Width 14.5 % (11.5-14.5); White Blood Cell (WBC) Count 9.9 10x3/uL (4.8-10.8)
[2023-05-07 06:34] LABS: Delete Auto Diff?? YES
[2023-05-07 06:36] LABS: Chloride 104 mmol/L (98-107); Sodium 136 mmol/L (136-145)
[2023-05-07 07:02] LABS: Band 49 % (5-11); Burr Cells SLIGHT = 2-5 cells HPF (0-1); CellaVision Operator ID LAB.GE; Eosinophils 23 % (0-10); Lymphocytes 8 % (21-51); Metamyelocyte 1 % (0-0); Monocytes 8 % (0-10); Myelocyte 1 % (0-0); Neutrophil 11 % (42-75); Platelet Adequacy Comment Platelets Normal; Polychromasia SLIGHT = 2-3 cells HPF (0-2); Total Cell Count 105
[2023-05-07] MEDS: Ondansetron ODT 4 MG TAB PO PRN ×2 (11:11→18:04)
[2023-05-07] MEDS: Acetaminophen 325 MG TAB PO PRN ×2 (11:12→18:04)
[2023-05-07 11:46] LABS: Calcium 8.7 mg/dL (7.8-10.44); Glucose 89 mg/dL (83-110)
[2023-05-07 11:48] LABS: Anion Gap 14 mmol/L (10-20); Carbon Dioxide 23 mmol/L (23-31)
[2023-05-07 11:50] LABS: BUN (Urea Nitrogen) 9 mg/dL (9.8-20.1); Calc. Creatinine Clearance 69 mL/min (70-130); Estimated GFR 74
[2023-05-07] MEDS: LevoFLOXacin 750 mg/D5W 750 MG in Premix 1 BAG IVPB SCH (15:37)
[2023-05-07] MEDS ORDERED: GoLYTELY 4,000 ml Bottle PO SCH (18:15)
[2023-05-08] MEDS: metroNIDAZOLE 500 MG in Premix 1 BAG IVPB SCH ×3 (05:11→21:08)
[2023-05-08 05:46] LABS: Hematocrit 30.8 % (36.0-47.0); Hemoglobin 9.5 g/dL (12.0-16.0); Manual Diff?? YES; Mean Corpuscular HGB CONC 30.8 g/dL (32.0-36.0); Mean Corpuscular Hemoglobin 24.9 pg (27.0-31.0); Mean Corpuscular Volume 80.8 fl (78.0-98.0); Mean Platelet Volume 8.6 fL (7.4-10.4); Platelet Count 363 10x3/uL (130-400); RBC Distribution Width 14.5 % (11.5-14.5); Red Blood Cell (RBC) Count 3.81 mill/uL (4.20-5.40); White Blood Cell (WBC) Count 15.2 10x3/uL (4.8-10.8)
[2023-05-08 06:15] LABS: Delete Auto Diff?? YES
[2023-05-08 06:17] LABS: Anion Gap 12 mmol/L (10-20); BUN (Urea Nitrogen) 8 mg/dL (9.8-20.1); Calc. Creatinine Clearance 76 mL/min (70-130); Calcium 8.4 mg/dL (7.8-10.44); Carbon Dioxide 24 mmol/L (23-31); Chloride 102 mmol/L (98-107); Estimated GFR 83; Glucose 95 mg/dL (83-110); Potassium 3.5 mmol/L (3.5-5.1); Sodium 134 mmol/L (136-145)
[2023-05-08] MEDS ORDERED: PROPOFOL 40 ML ONE (08:29)
[2023-05-08] MEDS ORDERED: Lidocaine 1% PF 5 ML VIAL ONE (08:29)
[2023-05-08 09:08] LABS: Band 58 % (5-11); Eosinophils 13 % (0-10); Lymphocytes 8 % (21-51); Monocytes 3 % (0-10); Neutrophil 18 % (42-75)
[2023-05-08 09:09] LABS: Hypochromia SLIGHT = 6-15 cells (100X) (0-5/hpf); Platelet Adequacy Comment Platelets Normal; Polychromasia SLIGHT = 2-3 cells (100X) (0-2/hpf)
[2023-05-08] MEDS ORDERED: methylPREDNISolone Sod Succ 40 MG VIAL IVP SCH (11:45)
[2023-05-08] MEDS: LevoFLOXacin 750 mg/D5W 750 MG in Premix 1 BAG IVPB SCH (14:09)
[2023-05-08] MEDS: Acetaminophen 325 MG TAB PO PRN (15:56)
[2023-05-08] MEDS: methylPREDNISolone Sod Succ 40 MG VIAL IVP SCH (20:49)
[2023-05-08] MEDS: HumaLOG 300 UNITS/3 ML VIAL SC PRN (21:08)
[2023-05-09 01:12] LABS: Adenovirus F 40-41 Not Detected (Not Detected); Astrovirus Not Detected (Not Detected); C. difficile toxin A+B Not Detected (Not Detected); Campylobacter by PCR Not Detected (Not Detected); Cryptosporidium Not Detected (Not Detected); Cyclospora cayetanensis Not Detected (Not Detected); Entamoeba histolytica Not Detected (Not Detected); Enteroaggregative E. coli Not Detected (Not Detected); Enteropathogenic E. coli Not Detected (Not Detected); Enterotoxigenic E. coli Not Detected (Not Detected); Giardia lamblia Not Detected (Not Detected); Norovirus GI-GII Not Detected (Not Detected); Plesiomonas shigelloides Not Detected (Not Detected); Rotavirus A Not Detected (Not Detected); Salmonella Not Detected (Not Detected); Sapovirus Not Detected (Not Detected); Shiga-toxin-producing E coli Not Detected (Not Detected); Shigella/Enteroinvasive E coli Not Detected (Not Detected); Vibrio Not Detected (Not Detected); Vibrio cholerae Not Detected (Not Detected); Yersinia enterocolitica Not Detected (Not Detected)
[2023-05-09] MEDS: metroNIDAZOLE 500 MG in Premix 1 BAG IVPB SCH ×3 (05:37→20:57)
[2023-05-09 06:30] LABS: Hematocrit 30.2 % (36.0-47.0); Hemoglobin 9.5 g/dL (12.0-16.0); Manual Diff?? YES; Mean Corpuscular HGB CONC 31.5 g/dL (32.0-36.0); Mean Corpuscular Hemoglobin 25.4 pg (27.0-31.0); Mean Corpuscular Volume 80.7 fl (78.0-98.0); Mean Platelet Volume 8.7 fL (7.4-10.4); Platelet Count 379 10x3/uL (130-400); RBC Distribution Width 14.5 % (11.5-14.5); Red Blood Cell (RBC) Count 3.74 mill/uL (4.20-5.40); White Blood Cell (WBC) Count 16.1 10x3/uL (4.8-10.8)
[2023-05-09 06:33] LABS: Delete Auto Diff?? YES
[2023-05-09 06:57] LABS: Anion Gap 12 mmol/L (10-20); BUN (Urea Nitrogen) 13 mg/dL (9.8-20.1); Calc. Creatinine Clearance 76 mL/min (70-130); Calcium 8.5 mg/dL (7.8-10.44); Carbon Dioxide 25 mmol/L (23-31); Chloride 103 mmol/L (98-107); Estimated GFR 83; Glucose 141 mg/dL (83-110); Potassium 4.2 mmol/L (3.5-5.1); Sodium 136 mmol/L (136-145)
[2023-05-09 07:20] LABS: Band 37 % (5-11); CellaVision Operator ID LAB.GE; Eosinophils 20 % (0-10); Hypochromia SLIGHT = 6-15 cells HPF (0-5); Lymphocytes 2 % (21-51); Monocytes 2 % (0-10); Neutrophil 38 % (42-75); Platelet Adequacy Comment Platelets Normal; Polychromasia SLIGHT = 2-3 cells HPF (0-2); Reactive Lymphocytes 1 % (0-10); Total Cell Count 106; Vacuoles SLIGHT
[2023-05-09] MEDS: methylPREDNISolone Sod Succ 40 MG VIAL IVP SCH ×2 (08:37→20:57)
[2023-05-09] MEDS: LevoFLOXacin 750 mg/D5W 750 MG in Premix 1 BAG IVPB SCH (18:53)
[2023-05-09] MEDS: Acetaminophen 325 MG TAB PO PRN (18:56)
[2023-05-09] MEDS: Carvedilol 6.25 MG TAB PO SCH (20:57)
[2023-05-09] MEDS ORDERED: Atorvastatin Calcium 10 MG TAB PO SCH (21:00)
[2023-05-10] MEDS: HumaLOG 300 UNITS/3 ML VIAL SC PRN (04:19)
[2023-05-10] MEDS: metroNIDAZOLE 500 MG in Premix 1 BAG IVPB SCH (05:17)
[2023-05-10 07:55] VITALS: TEMP 98.2
[2023-05-10] MEDS: Carvedilol 6.25 MG TAB PO SCH (08:10)
[2023-05-10] MEDS: methylPREDNISolone Sod Succ 40 MG VIAL IVP SCH (08:11)
[2023-05-10 08:12] VITALS: BP 178/76
[2023-05-10] MEDS ORDERED: FLUoxetine HCl 20 MG CAP PO SCH (09:00)
[2023-05-10] MEDS ORDERED: Losartan 25 MG TAB PO SCH (09:00)
[2023-05-10] MEDS ORDERED: metFORMIN XR 500 MG ER.TAB PO SCH (09:00)
[2023-05-10 14:03] LABS: HBCM Index 0.06 S/CO (0-0.79); HBSAg Index 0.25 S/CO (0-0.99); Hep A IgM AB Non-Reactive S/CO (NonReactive); Hep A IgM S/CO 0.14 S/CO (0-0.79); Hep B Surf Ag Non-Reactive S/CO (NonReactive); Hep C IgG Ab Non-Reactive S/CO (NonReactive); Hep C Index 0.35 S/CO (0-0.79); Hepatitis B Core IgM Abs Non-Reactive S/CO (NonReactive)
== END 2023-05-10 13:25 | disposition home or self-care (01) | DRG 872 ==
LOC: ERS 10:18 → T4-B 14:20
PROVIDERS: ADMIT Hospitalist; ATTEND Hospitalist
PROC: 3E03329 Introduction of Other Anti-infective into Peripheral Vein, Percutaneous Approach (ICD-10-PCS; 2023-05-06)
PROC: 0DBG8ZX Excision of Left Large Intestine, Via Natural or Artificial Opening Endoscopic, Diagnostic (ICD-10-PCS; principal; 2023-05-08)
PROC: 0DBF8ZX Excision of Right Large Intestine, Via Natural or Artificial Opening Endoscopic, Diagnostic (ICD-10-PCS; 2023-05-08)
DX: A41.9 Sepsis, unspecified organism (principal); K51.00 Ulcerative (chronic) pancolitis without complications; K92.2 Gastrointestinal hemorrhage, unspecified; D62 Acute posthemorrhagic anemia; E11.9 Type 2 diabetes mellitus without complications; I10 Essential (primary) hypertension; I25.10 Atherosclerotic heart disease of native coronary artery without angina pectoris; F32.A Depression, unspecified; E86.0 Dehydration; D64.9 Anemia, unspecified; K21.9 Gastro-esophageal reflux disease without esophagitis; Z79.82 Long term (current) use of aspirin; Z79.899 Other long term (current) drug therapy; Z90.710 Acquired absence of both cervix and uterus; Z90.49 Acquired absence of other specified parts of digestive tract; Z87.891 Personal history of nicotine dependence
CPT/HCPCS: 36415; 36416; 74177; 80048; 80053; 80074; 82274; 83690; 85025; 85610; 85730; 86140; 86850; 86900; 86901; 87324; 87449; 87505; 87507; 88305; J1815; J1956; J2270; J2704; J2920; J7042; J7050; Q0162; Q9967

== ENCOUNTER 2023-05-21 11:16 | Inpatient (IN) | payer MEDICARE ==
[~2023-05-21 11:16] MED LIST: Iopamidol-370 76% 500 ML MDV (1 ML CHARGE) ONE
[2023-05-21] MEDS ORDERED: Ketorolac Tromethamine 30 MG (1 mL) VIAL ONE (13:12)
[2023-05-21] MEDS ORDERED: Ondansetron PF 4 MG/2 ML Vial ONE (13:12)
[2023-05-21 13:49] LABS: Hematocrit 32.8 % (36.0-47.0); Hemoglobin 10.6 g/dL (12.0-16.0); Manual Diff?? YES; Mean Corpuscular HGB CONC 32.3 g/dL (32.0-36.0); Mean Corpuscular Hemoglobin 25.4 pg (27.0-31.0); Mean Corpuscular Volume 78.7 fl (78.0-98.0); Mean Platelet Volume 8.5 fL (7.4-10.4); Platelet Count 420 10x3/uL (130-400); RBC Distribution Width 16.9 % (11.5-14.5); Red Blood Cell (RBC) Count 4.17 mill/uL (4.20-5.40); White Blood Cell (WBC) Count 63.8 10x3/uL (4.8-10.8)
[2023-05-21 13:50] LABS: Delete Auto Diff?? YES
[2023-05-21 14:02] LABS: Bilirubin Negative (Negative); Blood, Urine Negative (Negative); CAUTI Indications for Culture Pelvic or flank pain; Clarity Clear (Clear); Glucose, Urine (Dipstick) Normal (Negative); Ketone, Urine Negative (Negative); Leukocyte Negative Leu/uL (Negative); Nitrite Negative (Negative); Protein, Urine (Dipstick) Negative (Neg-Trace); RBC/HPF 0-3 HPF (0-3); Specific Gravity, Urine 1.007 (1.002-1.036); Squamous Epithelial 0-3 HPF (0-3); Urobilinogen Normal mg/dL (Less than 2); WBC/HPF 0-3 HPF (0-3)
[2023-05-21 14:07] LABS: Bacteria/HPF 1+ HPF (None Seen)
[2023-05-21 14:09] LABS: Urine Culture Reflex No No
[2023-05-21 14:13] LABS: ALT (SGPT) Less than 7 U/L (8-55); AST (SGOT) 8 U/L (5-34); Albumin 3.6 g/dL (3.4-4.8); Alkaline Phosphatase 42 U/L (40-110); Anion Gap 12 mmol/L (10-20); BUN (Urea Nitrogen) 14 mg/dL (9.8-20.1); Bilirubin, Total 0.5 mg/dL (0.2-1.2); Calc. Creatinine Clearance 0 mL/min (70-130); Calcium 8.6 mg/dL (7.8-10.44); Carbon Dioxide 26 mmol/L (23-31); Chloride 99 mmol/L (98-107); Estimated GFR 70; Globulin 4.5 g/dL (2.4-3.5); Glucose 225 mg/dL (83-110); Lipase 15 U/L (8-78); Potassium 4.9 mmol/L (3.5-5.1); Protein, Total 8.1 g/dL (5.8-8.1); Sodium 132 mmol/L (136-145)
[2023-05-21 14:21] LABS: Band 15 % (5-11); Eosinophils 18 % (0-10); Lymphocytes 6 % (21-51); Neutrophil 60 % (42-75)
[2023-05-21 14:22] LABS: Platelet Adequacy Comment Platelets Increased; Polychromasia SLIGHT = 2-3 cells (100X) (0-2/hpf)
[2023-05-21 14:26] LABS: Reflex for Review?? YES
[2023-05-21 15:17] LABS: CRP (Inflammatory) 1.58 mg/dL (= or < 0.5); Magnesium 1.6 mg/dL (1.6-2.6)
[2023-05-21] MEDS ORDERED: Sodium Chloride 0.9% 100 ML ONE (16:10)
[2023-05-21] MEDS ORDERED: metroNIDAZOLE 500 MG (100 mL) BAG ONE (16:11)
[2023-05-21] MEDS ORDERED: Piperacillin/Tazobactam 3.375 GM VIAL ONE (16:11)
[2023-05-21] MEDS ORDERED: Magnesium 2 GM/50 ML(in water) 2 GM in Premix 1 BAG IVPB SCH (17:15)
[2023-05-21] MEDS ORDERED: Glucagon 1 MG/ML KIT IM PRN (17:15)
[2023-05-21] MEDS ORDERED: Dextrose 5% in Water 1,000 ML IV PRN (17:15)
[2023-05-21] MEDS ORDERED: Dextrose 50% Abboject 50 ML SYRINGE SLOW IVP PRN (17:15)
[2023-05-21 21:25] VITALS: BMI 30.2
[2023-05-21] MEDS: HYDROcodone/Acetaminophen 5/325 mg Tablet PO PRN (21:37)
[2023-05-21] MEDS: Carvedilol 6.25 MG TAB PO SCH (21:37)
[2023-05-21] MEDS: Pantoprazole 40 MG VIAL IVP SCH (21:43)
[2023-05-21] MEDS: Atorvastatin Calcium 10 MG TAB PO SCH (21:43)
[2023-05-21] MEDS: methylPREDNISolone Sod Succ 40 MG VIAL IVP SCH (21:44)
[2023-05-21] MEDS ORDERED: Vancomycin (BATCH) 1.5 GM in Premix 1 BAG IVPB SCH (21:45)
[2023-05-22] MEDS: Piperacillin/Tazobactam 3.375 GM in Sodium Chloride 0.9% 100 ML IVPB SCH ×4 (00:18→21:31)
[2023-05-22] MEDS: methylPREDNISolone Sod Succ 40 MG VIAL IVP SCH ×3 (05:24→21:31)
[2023-05-22 07:20] LABS: ALT (SGPT) Less than 7 U/L (8-55); AST (SGOT) 8 U/L (5-34); Albumin 2.9 g/dL (3.4-4.8); Alkaline Phosphatase 39 U/L (40-110); Anion Gap 12 mmol/L (10-20); BUN (Urea Nitrogen) 17 mg/dL (9.8-20.1); Bilirubin, Total 0.4 mg/dL (0.2-1.2); Calc. Creatinine Clearance 66 mL/min (70-130); Calcium 8.2 mg/dL (7.8-10.44); Carbon Dioxide 26 mmol/L (23-31); Chloride 100 mmol/L (98-107); Estimated GFR 71; Globulin 3.9 g/dL (2.4-3.5); Glucose 193 mg/dL (83-110); Potassium 4.7 mmol/L (3.5-5.1); Protein, Total 6.8 g/dL (5.8-8.1); Sodium 133 mmol/L (136-145)
[2023-05-22] MEDS: Carvedilol 6.25 MG TAB PO SCH ×2 (08:01→20:21)
[2023-05-22] MEDS: FLUoxetine HCl 20 MG CAP PO SCH (08:02)
[2023-05-22] MEDS: Pantoprazole 40 MG VIAL IVP SCH ×2 (08:02→20:22)
[2023-05-22] MEDS ORDERED: Losartan 25 MG TAB PO SCH ×2 (09:00→11:45)
[2023-05-22] MEDS ORDERED: hydrALAZINE 20 MG/ML VIAL SLOW IVP PRN (11:33)
[2023-05-22 12:40] LABS: Hematocrit 30.6 % (36.0-47.0); Hemoglobin 9.7 g/dL (12.0-16.0); Manual Diff?? YES; Mean Corpuscular HGB CONC 31.7 g/dL (32.0-36.0); Mean Corpuscular Hemoglobin 25.6 pg (27.0-31.0); Mean Corpuscular Volume 80.7 fl (78.0-98.0); Mean Platelet Volume 8.7 fL (7.4-10.4); Platelet Count 385 10x3/uL (130-400); Red Blood Cell (RBC) Count 3.79 mill/uL (4.20-5.40); White Blood Cell (WBC) Count 61.3 10x3/uL (4.8-10.8)
[2023-05-22 12:42] LABS: Delete Auto Diff?? YES
[2023-05-22 13:16] LABS: Anisocytosis SLIGHT = 6-15 cells HPF (0-5); Band 22 % (5-11); Burr Cells SLIGHT = 2-5 cells HPF (0-1); CellaVision Operator ID LAB.MJL; Elliptocytes SLIGHT = 2-5 cells HPF (0-1); Eosinophils 26 % (0-10); Lymphocytes 4 % (21-51); Metamyelocyte 1 % (0-0); Monocytes 1 % (0-10); Myelocyte 1 % (0-0); Neutrophil 45 % (42-75); Ovalocytes SLIGHT = 2-5 cells HPF (0-1); Platelet Adequacy Comment Platelets Normal; Poikilocytosis SLIGHT = 6-15 cells HPF (0-5); Polychromasia SLIGHT = 2-3 cells HPF (0-2); Total Cell Count 107
[2023-05-22] MEDS ORDERED: tiZANidine HCl 4 MG TAB PO SCH (17:15)
[2023-05-22] MEDS: HumaLOG 300 UNITS/3 ML VIAL SC PRN (17:24)
[2023-05-22 20:01] LABS: Magnesium 1.8 mg/dL (1.6-2.6)
[2023-05-22] MEDS: Atorvastatin Calcium 10 MG TAB PO SCH (20:21)
[2023-05-22] MEDS: HYDROcodone/Acetaminophen 5/325 mg Tablet PO PRN (20:22)
[2023-05-22] MEDS ORDERED: Vancomycin 1 GM in Premix 1 BAG IVPB SCH (21:00)
[2023-05-23 05:51] LABS: Hematocrit 30.5 % (36.0-47.0); Hemoglobin 9.8 g/dL (12.0-16.0); Manual Diff?? YES; Mean Corpuscular HGB CONC 32.1 g/dL (32.0-36.0); Mean Corpuscular Hemoglobin 25.7 pg (27.0-31.0); Mean Corpuscular Volume 80.1 fl (78.0-98.0); Mean Platelet Volume 8.7 fL (7.4-10.4); Platelet Count 402 10x3/uL (130-400); Red Blood Cell (RBC) Count 3.81 mill/uL (4.20-5.40)
[2023-05-23] MEDS: Piperacillin/Tazobactam 3.375 GM in Sodium Chloride 0.9% 100 ML IVPB SCH ×3 (05:55→22:00)
[2023-05-23] MEDS: methylPREDNISolone Sod Succ 40 MG VIAL IVP SCH ×3 (05:55→20:50)
[2023-05-23] MEDS: tiZANidine HCl 4 MG TAB PO SCH ×2 (05:55→17:26)
[2023-05-23 05:59] LABS: Delete Auto Diff?? YES
[2023-05-23 06:25] LABS: Anion Gap 12 mmol/L (10-20); BUN (Urea Nitrogen) 14 mg/dL (9.8-20.1); Calc. Creatinine Clearance 72 mL/min (70-130); Calcium 8.5 mg/dL (7.8-10.44); Carbon Dioxide 24 mmol/L (23-31); Chloride 102 mmol/L (98-107); Estimated GFR 80; Glucose 171 mg/dL (83-110); Potassium 4.6 mmol/L (3.5-5.1); Sodium 133 mmol/L (136-145)
[2023-05-23] MEDS: HumaLOG 300 UNITS/3 ML VIAL SC PRN ×3 (06:39→17:26)
[2023-05-23 06:40] LABS: Band 16 % (5-11); CellaVision Operator ID LAB.CLH1; Elliptocytes SLIGHT = 2-5 cells HPF (0-1); Eosinophils 24 % (0-10); Hypochromia SLIGHT = 6-15 cells HPF (0-5); Lymphocytes 1 % (21-51); Monocytes 1 % (0-10); Neutrophil 58 % (42-75); Platelet Adequacy Comment Platelets Increased; Polychromasia SLIGHT = 2-3 cells HPF (0-2); Total Cell Count 112
[2023-05-23] MEDS: Pantoprazole 40 MG VIAL IVP SCH ×2 (08:53→20:50)
[2023-05-23] MEDS: FLUoxetine HCl 20 MG CAP PO SCH (08:53)
[2023-05-23] MEDS: HYDROcodone/Acetaminophen 5/325 mg Tablet PO PRN ×2 (08:53→17:26)
[2023-05-23] MEDS: Ferrous Sulfate 325 MG TAB PO SCH (08:53)
[2023-05-23] MEDS: Carvedilol 6.25 MG TAB PO SCH ×2 (08:53→20:49)
[2023-05-23] MEDS: Losartan 25 MG TAB PO SCH (08:54)
[2023-05-23] MEDS: metroNIDAZOLE 500 MG in Premix 1 BAG IVPB SCH ×2 (13:17→20:50)
[2023-05-23] MEDS: Atorvastatin Calcium 10 MG TAB PO SCH (20:49)
[2023-05-24] MEDS: methylPREDNISolone Sod Succ 40 MG VIAL IVP SCH ×3 (05:05→21:18)
[2023-05-24] MEDS: tiZANidine HCl 4 MG TAB PO SCH ×2 (05:05→18:36)
[2023-05-24] MEDS: metroNIDAZOLE 500 MG in Premix 1 BAG IVPB SCH (05:10)
[2023-05-24] MEDS: Piperacillin/Tazobactam 3.375 GM in Sodium Chloride 0.9% 100 ML IVPB SCH (05:14)
[2023-05-24] MEDS: HumaLOG 300 UNITS/3 ML VIAL SC PRN ×2 (06:04→21:16)
[2023-05-24 07:39] LABS: Hematocrit 30.3 % (36.0-47.0); Hemoglobin 9.8 g/dL (12.0-16.0); Manual Diff?? YES; Mean Corpuscular HGB CONC 32.3 g/dL (32.0-36.0); Mean Corpuscular Hemoglobin 25.5 pg (27.0-31.0); Mean Corpuscular Volume 78.9 fl (78.0-98.0); Mean Platelet Volume 8.7 fL (7.4-10.4); Platelet Count 400 10x3/uL (130-400); RBC Distribution Width 16.9 % (11.5-14.5); Red Blood Cell (RBC) Count 3.84 mill/uL (4.20-5.40); White Blood Cell (WBC) Count 60.1 10x3/uL (4.8-10.8)
[2023-05-24 07:44] LABS: Delete Auto Diff?? YES
[2023-05-24 07:55] LABS: Anion Gap 11 mmol/L (10-20); BUN (Urea Nitrogen) 17 mg/dL (9.8-20.1); Calc. Creatinine Clearance 72 mL/min (70-130); Calcium 8.3 mg/dL (7.8-10.44); Carbon Dioxide 24 mmol/L (23-31); Chloride 100 mmol/L (98-107); Estimated GFR 80; Glucose 180 mg/dL (83-110); Potassium 4.4 mmol/L (3.5-5.1); Sodium 131 mmol/L (136-145)
[2023-05-24 08:17] LABS: Band 5 % (5-11); CellaVision Operator ID LAB.NR; Elliptocytes SLIGHT = 2-5 cells HPF (0-1); Eosinophils 43 % (0-10); Hypochromia SLIGHT = 6-15 cells HPF (0-5); Large Platelets 0.9 % (0-5); Lymphocytes 4 % (21-51); Monocytes 3 % (0-10); Neutrophil 45 % (42-75); Platelet Adequacy Comment Platelets Increased; Polychromasia SLIGHT = 2-3 cells HPF (0-2); Smudge Cells 8.1 %; Total Cell Count 111
[2023-05-24] MEDS: Pantoprazole 40 MG VIAL IVP SCH ×2 (08:46→21:18)
[2023-05-24] MEDS: Losartan 25 MG TAB PO SCH (08:46)
[2023-05-24] MEDS: FLUoxetine HCl 20 MG CAP PO SCH (08:46)
[2023-05-24] MEDS: Carvedilol 6.25 MG TAB PO SCH ×2 (08:46→21:17)
[2023-05-24] MEDS ORDERED: Meropenem 1 GM in Sodium Chloride 0.9% 100 ML IVPB SCH ×2 (12:00→14:00)
[2023-05-24] MEDS: Atorvastatin Calcium 10 MG TAB PO SCH (21:17)
[2023-05-24] MEDS: Meropenem 1 GM in Sodium Chloride 0.9% 100 ML IVPB SCH (21:19)
[2023-05-25] MEDS: HYDROcodone/Acetaminophen 5/325 mg Tablet PO PRN ×2 (02:23→21:55)
[2023-05-25] MEDS: tiZANidine HCl 4 MG TAB PO SCH ×2 (05:06→18:22)
[2023-05-25] MEDS: methylPREDNISolone Sod Succ 40 MG VIAL IVP SCH ×3 (05:06→21:56)
[2023-05-25] MEDS: Meropenem 1 GM in Sodium Chloride 0.9% 100 ML IVPB SCH ×3 (05:07→21:42)
[2023-05-25] MEDS: HumaLOG 300 UNITS/3 ML VIAL SC PRN ×3 (05:07→18:24)
[2023-05-25 07:44] LABS: Hematocrit 31.8 % (36.0-47.0); Hemoglobin 10.3 g/dL (12.0-16.0); Manual Diff?? YES; Mean Corpuscular HGB CONC 32.4 g/dL (32.0-36.0); Mean Corpuscular Hemoglobin 25.6 pg (27.0-31.0); Mean Corpuscular Volume 79.1 fl (78.0-98.0); Mean Platelet Volume 8.5 fL (7.4-10.4); Platelet Count 385 10x3/uL (130-400); Red Blood Cell (RBC) Count 4.02 mill/uL (4.20-5.40); White Blood Cell (WBC) Count 53.5 10x3/uL (4.8-10.8)
[2023-05-25 07:55] LABS: Delete Auto Diff?? YES
[2023-05-25 08:06] LABS: Anion Gap 11 mmol/L (10-20); BUN (Urea Nitrogen) 23 mg/dL (9.8-20.1); Calc. Creatinine Clearance 72 mL/min (70-130); Calcium 8.3 mg/dL (7.8-10.44); Carbon Dioxide 24 mmol/L (23-31); Chloride 101 mmol/L (98-107); Estimated GFR 78; Glucose 154 mg/dL (83-110); Potassium 4.4 mmol/L (3.5-5.1); Sodium 132 mmol/L (136-145)
[2023-05-25] MEDS ORDERED: Iopamidol-370 76% 500 ML MDV (1 ML CHARGE) ONE (08:47)
[2023-05-25 09:14] LABS: Anisocytosis SLIGHT = 6-15 cells HPF (0-5); Band 1 % (5-11); Burr Cells MODERATE= 6-15 cells HPF (0-1); CellaVision Operator ID LAB.NR; Eosinophils 49 % (0-10); Large Platelets 0.9 % (0-5); Lymphocytes 5 % (21-51); Microcytosis SLIGHT = 6-15 cells HPF (0-5); Monocytes 1 % (0-10); Neutrophil 42 % (42-75); Platelet Adequacy Comment Platelets Normal; Polychromasia SLIGHT = 2-3 cells HPF (0-2); Smudge Cells 4.3 %; Total Cell Count 117
[2023-05-25] MEDS: Losartan 25 MG TAB PO SCH (10:00)
[2023-05-25] MEDS: Carvedilol 6.25 MG TAB PO SCH ×2 (10:01→21:35)
[2023-05-25] MEDS: Pantoprazole 40 MG VIAL IVP SCH ×2 (10:02→21:36)
[2023-05-25] MEDS: FLUoxetine HCl 20 MG CAP PO SCH (10:02)
[2023-05-25 13:01] LABS: Campy jejuni + coli by PCR Negative (Negative); STEC Shiga Toxin 1+2 Negative (Negative); Salmonella spp. by PCR Negative (Negative); Shigella spp + EIEC by PCR Negative (Negative)
[2023-05-25] MEDS: Atorvastatin Calcium 10 MG TAB PO SCH (21:36)
[2023-05-25 23:36] LABS: QuantiFERON-TB Gold Plus Indeterminate (Negative)
[2023-05-26] MEDS: HumaLOG 300 UNITS/3 ML VIAL SC PRN ×5 (01:06→23:23)
[2023-05-26] MEDS: Meropenem 1 GM in Sodium Chloride 0.9% 100 ML IVPB SCH ×3 (05:43→20:49)
[2023-05-26] MEDS: methylPREDNISolone Sod Succ 40 MG VIAL IVP SCH ×3 (05:43→20:51)
[2023-05-26] MEDS: tiZANidine HCl 4 MG TAB PO SCH ×2 (05:44→17:29)
[2023-05-26 06:48] LABS: Hematocrit 32.5 % (36.0-47.0); Hemoglobin 10.3 g/dL (12.0-16.0); Manual Diff?? YES; Mean Corpuscular HGB CONC 31.7 g/dL (32.0-36.0); Mean Corpuscular Hemoglobin 25.2 pg (27.0-31.0); Mean Corpuscular Volume 79.7 fl (78.0-98.0); Mean Platelet Volume 8.9 fL (7.4-10.4); Platelet Count 384 10x3/uL (130-400); RBC Distribution Width 17.1 % (11.5-14.5); Red Blood Cell (RBC) Count 4.08 mill/uL (4.20-5.40); White Blood Cell (WBC) Count 51.9 10x3/uL (4.8-10.8)
[2023-05-26 06:49] LABS: Delete Auto Diff?? YES
[2023-05-26 07:15] LABS: Anion Gap 13 mmol/L (10-20); BUN (Urea Nitrogen) 27 mg/dL (9.8-20.1); Calc. Creatinine Clearance 68 mL/min (70-130); Calcium 8.1 mg/dL (7.8-10.44); Carbon Dioxide 23 mmol/L (23-31); Chloride 98 mmol/L (98-107); Estimated GFR 74; Glucose 187 mg/dL (83-110); Potassium 4.5 mmol/L (3.5-5.1); Sodium 129 mmol/L (136-145)
[2023-05-26 07:28] LABS: Band 8 % (5-11); Burr Cells SLIGHT = 2-5 cells HPF (0-1); CellaVision Operator ID LAB.GE; Eosinophils 41 % (0-10); Lymphocytes 2 % (21-51); Monocytes 1 % (0-10); Neutrophil 48 % (42-75); Platelet Adequacy Comment Platelets Normal; Polychromasia SLIGHT = 2-3 cells HPF (0-2); Total Cell Count 102
[2023-05-26] MEDS: Pantoprazole 40 MG VIAL IVP SCH ×2 (08:55→20:49)
[2023-05-26] MEDS: Losartan 25 MG TAB PO SCH (08:56)
[2023-05-26] MEDS: Ferrous Sulfate 325 MG TAB PO SCH (08:56)
[2023-05-26] MEDS: FLUoxetine HCl 20 MG CAP PO SCH (08:56)
[2023-05-26] MEDS: Carvedilol 6.25 MG TAB PO SCH ×2 (08:57→20:50)
[2023-05-26] MEDS: Acetaminophen 325 MG TAB PO PRN (20:47)
[2023-05-26] MEDS: Atorvastatin Calcium 10 MG TAB PO SCH (20:50)
[2023-05-26] MEDS: Mesalamine DR 400 mg Capsule PO SCH (20:51)
[2023-05-27 05:00] LABS: Manual Diff?? YES; Mean Corpuscular HGB CONC 32.4 g/dL (32.0-36.0); Mean Corpuscular Hemoglobin 25.6 pg (27.0-31.0); Mean Corpuscular Volume 79.3 fl (78.0-98.0); Mean Platelet Volume 8.8 fL (7.4-10.4); Platelet Count 410 10x3/uL (130-400); RBC Distribution Width 17.2 % (11.5-14.5); Red Blood Cell (RBC) Count 4.29 mill/uL (4.20-5.40); White Blood Cell (WBC) Count 56.4 10x3/uL (4.8-10.8)
[2023-05-27 05:01] LABS: Delete Auto Diff?? YES
[2023-05-27 05:25] LABS: Band 12 % (5-11); CellaVision Operator ID LAB.CLH1; Elliptocytes SLIGHT = 2-5 cells HPF (0-1); Eosinophils 29 % (0-10); Hypochromia SLIGHT = 6-15 cells HPF (0-5); Lymphocytes 2 % (21-51); Monocytes 6 % (0-10); Neutrophil 50 % (42-75); Platelet Adequacy Comment Platelets Increased; Polychromasia SLIGHT = 2-3 cells HPF (0-2); Total Cell Count 102
[2023-05-27 05:26] LABS: Anion Gap 12 mmol/L (10-20); BUN (Urea Nitrogen) 30 mg/dL (9.8-20.1); Calc. Creatinine Clearance 67 mL/min (70-130); Calcium 8.4 mg/dL (7.8-10.44); Carbon Dioxide 22 mmol/L (23-31); Chloride 97 mmol/L (98-107); Estimated GFR 72; Glucose 223 mg/dL (83-110); Magnesium 1.9 mg/dL (1.6-2.6); Sodium 126 mmol/L (136-145)
[2023-05-27] MEDS: Meropenem 1 GM in Sodium Chloride 0.9% 100 ML IVPB SCH ×2 (05:46→12:38)
[2023-05-27] MEDS: methylPREDNISolone Sod Succ 40 MG VIAL IVP SCH (05:46)
[2023-05-27] MEDS: tiZANidine HCl 4 MG TAB PO SCH ×2 (05:47→17:52)
[2023-05-27] MEDS: HumaLOG 300 UNITS/3 ML VIAL SC PRN ×2 (05:47→11:47)
[2023-05-27] MEDS ORDERED: Sodium Chloride 0.9% 500 ML IV SCH (07:45)
[2023-05-27] MEDS ORDERED: Sodium Chloride 0.9% 1,000 ML IV SCH (07:45)
[2023-05-27] MEDS: Mesalamine DR 400 mg Capsule PO SCH ×3 (08:14→20:29)
[2023-05-27] MEDS: FLUoxetine HCl 20 MG CAP PO SCH (08:14)
[2023-05-27] MEDS: Pantoprazole 40 MG VIAL IVP SCH (08:14)
[2023-05-27] MEDS: Carvedilol 6.25 MG TAB PO SCH ×2 (08:14→20:29)
[2023-05-27] MEDS: Losartan 25 MG TAB PO SCH (08:15)
[2023-05-27] MEDS: HYDROcodone/Acetaminophen 5/325 mg Tablet PO PRN (20:30)
[2023-05-27] MEDS: Atorvastatin Calcium 10 MG TAB PO SCH (20:30)
[2023-05-27] MEDS ORDERED: Ondansetron ODT 4 MG TAB PO PRN (22:03)
[2023-05-27] MEDS: Ondansetron PF 4 MG/2 ML Vial IVP PRN (22:18)
[2023-05-28] MEDS: tiZANidine HCl 4 MG TAB PO SCH ×2 (05:13→18:06)
[2023-05-28 05:26] LABS: Hematocrit 37.1 % (36.0-47.0); Hemoglobin 11.9 g/dL (12.0-16.0); Manual Diff?? YES; Mean Corpuscular HGB CONC 32.1 g/dL (32.0-36.0); Mean Corpuscular Hemoglobin 25.8 pg (27.0-31.0); Mean Corpuscular Volume 80.5 fl (78.0-98.0); Mean Platelet Volume 8.6 fL (7.4-10.4); Platelet Count 343 10x3/uL (130-400); RBC Distribution Width 17.5 % (11.5-14.5); Red Blood Cell (RBC) Count 4.61 mill/uL (4.20-5.40); White Blood Cell (WBC) Count 69.9 10x3/uL (4.8-10.8)
[2023-05-28 05:28] LABS: Delete Auto Diff?? YES
[2023-05-28 05:57] LABS: Anion Gap 12 mmol/L (10-20); BUN (Urea Nitrogen) 32 mg/dL (9.8-20.1); Calc. Creatinine Clearance 74 mL/min (70-130); Calcium 7.9 mg/dL (7.8-10.44); Carbon Dioxide 21 mmol/L (23-31); Chloride 98 mmol/L (98-107); Estimated GFR 82; Glucose 198 mg/dL (83-110); Potassium 4.4 mmol/L (3.5-5.1); Sodium 127 mmol/L (136-145)
[2023-05-28 06:07] LABS: Band 9 % (5-11); CellaVision Operator ID LAB.CLH1; Eosinophils 69 % (0-10); Monocytes 1 % (0-10); Neutrophil 21 % (42-75); Platelet Adequacy Comment Platelets Normal; Polychromasia SLIGHT = 2-3 cells HPF (0-2); Reactive Lymphocytes 1 % (0-10); Total Cell Count 106
[2023-05-28] MEDS ORDERED: Sodium Chloride 0.45% 500 ML IV SCH (08:00)
[2023-05-28] MEDS: predniSONE 20 MG TAB PO SCH (10:13)
[2023-05-28] MEDS: Ferrous Sulfate 325 MG TAB PO SCH (10:13)
[2023-05-28] MEDS: Mesalamine DR 400 mg Capsule PO SCH ×2 (10:13→15:06)
[2023-05-28] MEDS: FLUoxetine HCl 20 MG CAP PO SCH (10:13)
[2023-05-28] MEDS: Carvedilol 6.25 MG TAB PO SCH (10:14)
[2023-05-28] MEDS: Losartan 25 MG TAB PO SCH (10:14)
[2023-05-28] MEDS: Acetaminophen 325 MG TAB PO PRN (10:18)
[2023-05-28] MEDS ORDERED: Iopamidol-370 76% 500 ML MDV (1 ML CHARGE) ONE (11:17)
[2023-05-28] MEDS ORDERED: Nitroglycerin 0.4 MG TAB (25 Tab Bottle) ONE (12:05)
[2023-05-28] MEDS: Nitroglycerin 0.4 MG TAB (25 Tab Bottle) SL PRN ×2 (12:24→12:37)
[2023-05-28] MEDS ORDERED: Morphine 4 MG/ML VIAL ONE (12:55)
[2023-05-28] MEDS: Ondansetron PF 4 MG/2 ML Vial IVP PRN ×2 (13:11→18:06)
[2023-05-28] MEDS ORDERED: Ivermectin 3 MG TAB PO SCH (14:15)
[2023-05-28] MEDS ORDERED: Morphine 4 MG/ML VIAL SLOW IVP PRN (14:29)
[2023-05-28] MEDS ORDERED: Nitroglycerin 2% Ointment 1 INCH/1 GM Packet TOP SCH (14:30)
[2023-05-28] MEDS ORDERED: Enoxaparin 80 MG (0.8 mL) SYRINGE SC SCH (14:30)
[2023-05-28] MEDS ORDERED: Nitroglycerin 2% Ointment 1 INCH/1 GM Packet ONE ×2 (14:35→14:42)
[2023-05-28] MEDS ORDERED: Metoclopramide HCl 10 MG (2 mL) VIAL IVP SCH (21:30)
[2023-05-28] MEDS: Pantoprazole 40 MG VIAL IVP SCH (21:35)
[2023-05-29] MEDS: Nitroglycerin 2% Ointment 1 INCH/1 GM Packet TOP SCH ×3 (01:06→22:10)
[2023-05-29] MEDS: Carvedilol 6.25 MG TAB PO SCH ×3 (01:06→22:01)
[2023-05-29] MEDS: Atorvastatin Calcium 10 MG TAB PO SCH ×2 (01:06→22:01)
[2023-05-29] MEDS: Mesalamine DR 400 mg Capsule PO SCH ×4 (01:06→22:01)
[2023-05-29 03:24] LABS: Hematocrit 36.6 % (36.0-47.0); Manual Diff?? YES; Mean Corpuscular HGB CONC 32.8 g/dL (32.0-36.0); Mean Corpuscular Hemoglobin 25.9 pg (27.0-31.0); Mean Platelet Volume 8.8 fL (7.4-10.4); RBC Distribution Width 17.2 % (11.5-14.5); Red Blood Cell (RBC) Count 4.63 mill/uL (4.20-5.40); White Blood Cell (WBC) Count 42.1 10x3/uL (4.8-10.8)
[2023-05-29 03:25] LABS: Actual Bicarbonate (HCO3v) 17.6 mEq/L (22-28); Base Excess -6.8 mEq/L (-2.0 to +3.0); Calcium, Ionized (venous) 1.12 mmol/L (1.16-1.32); Chloride (VBG) 96 mmol/L (98-106); Hematocrit-VBG 36 % (36.0-47.0); Hemoglobin (Hb) 12.3 g/dL (11.7-16.1); Potassium (VBG) 4.11 mmol/L (3.70-5.30); pH (venous) 7.359 (7.32-7.43)
[2023-05-29 03:30] LABS: Platelet Count 218 10x3/uL (130-400)
[2023-05-29 03:31] LABS: Delete Auto Diff?? YES
[2023-05-29] MEDS ORDERED: Enoxaparin 80 MG (0.8 mL) SYRINGE SC SCH (04:00)
[2023-05-29 04:09] LABS: CRP (Inflammatory) 8.98 mg/dL (= or < 0.5); Phosphorus 4.6 mg/dL (2.3-4.7)
[2023-05-29 04:10] LABS: Band 9 % (5-11); CellaVision Operator ID LAB.CLH1; Eosinophils 50 % (0-10); Hypochromia SLIGHT = 6-15 cells HPF (0-5); Large Platelets 0.9 % (0-5); Lymphocytes 1 % (21-51); Monocytes 4 % (0-10); Neutrophil 36 % (42-75); Platelet Adequacy Comment Platelets Normal; Poikilocytosis SLIGHT = 6-15 cells HPF (0-5); Polychromasia SLIGHT = 2-3 cells HPF (0-2); Total Cell Count 106
[2023-05-29 04:16] LABS: ALT (SGPT) 10 U/L (8-55); AST (SGOT) 36 U/L (5-34); Albumin 3.1 g/dL (3.4-4.8); Alkaline Phosphatase 59 U/L (40-110); Anion Gap 15 mmol/L (10-20); BUN (Urea Nitrogen) 35 mg/dL (9.8-20.1); Bilirubin, Total 0.6 mg/dL (0.2-1.2); Calc. Creatinine Clearance 70 mL/min (70-130); Calcium 8.2 mg/dL (7.8-10.44); Carbon Dioxide 21 mmol/L (23-31); Chloride 97 mmol/L (98-107); Estimated GFR 76; Globulin 3.6 g/dL (2.4-3.5); Glucose 194 mg/dL (83-110); Lipase 11 U/L (8-78); Magnesium 1.7 mg/dL (1.6-2.6); Potassium 4.1 mmol/L (3.5-5.1); Protein, Total 6.7 g/dL (5.8-8.1); Sodium 129 mmol/L (136-145)
[2023-05-29] MEDS: HumaLOG 300 UNITS/3 ML VIAL SC PRN ×4 (06:43→22:24)
[2023-05-29] MEDS: tiZANidine HCl 4 MG TAB PO SCH ×2 (06:47→19:26)
[2023-05-29] MEDS: Nitroglycerin 0.4 MG TAB (25 Tab Bottle) SL PRN (06:51)
[2023-05-29 09:55] LABS: Critical Call Chem Troponin I NUR.AB28 @0955; Troponin I 4.092 ng/mL (< 0.028)
[2023-05-29] MEDS: predniSONE 20 MG TAB PO SCH (11:23)
[2023-05-29] MEDS: FLUoxetine HCl 20 MG CAP PO SCH (11:23)
[2023-05-29] MEDS: Losartan 25 MG TAB PO SCH (11:23)
[2023-05-29] MEDS: Ivermectin 3 MG TAB PO SCH (11:24)
[2023-05-29] MEDS: Pantoprazole 40 MG VIAL IVP SCH ×2 (11:30→22:03)
[2023-05-29] MEDS ORDERED: Enoxaparin 30 MG (0.3 mL) SYRINGE SC SCH (12:45)
[2023-05-29 16:22] LABS: Actual Bicarbonate (HCO3a) 20.4 mEq/L (22-28); Base Excess (BEa) -3.3 mEq/L (-2.0 to +3.0); CO2 Tension 32.4 mmHg (35.0-45.0); Calcium, Ionized (arterial) 1.15 mmol/L (1.12-1.30); Carboxyhemoglobin (COHb) 0.9 gm% (0.0-3.0); Hematocrit-ABG 35 % (36.0-47.0); Hemoglobin (Hb) 11.8 g/dL (12.0-16.0); O2 Tension (PaO2), arterial 95.6 mmHg (> 70.0); Potassium - ABG Lab 4.55 mmol/L (3.70-5.30); pH, Arterial 7.418 (7.35-7.45)
[2023-05-29 16:23] LABS: Puncture Site RRA
[2023-05-29] MEDS: Enoxaparin 60 MG (0.6 mL) SYRINGE SC SCH (22:07)
[2023-05-30 04:45] LABS: Hematocrit 34.8 % (36.0-47.0); Hemoglobin 11.2 g/dL (12.0-16.0); Manual Diff?? YES; Mean Corpuscular HGB CONC 32.2 g/dL (32.0-36.0); Mean Corpuscular Hemoglobin 25.5 pg (27.0-31.0); Mean Corpuscular Volume 79.3 fl (78.0-98.0); Mean Platelet Volume 9.4 fL (7.4-10.4); Platelet Count 166 10x3/uL (130-400); RBC Distribution Width 17.7 % (11.5-14.5); Red Blood Cell (RBC) Count 4.39 mill/uL (4.20-5.40); White Blood Cell (WBC) Count 46.1 10x3/uL (4.8-10.8)
[2023-05-30 05:03] LABS: Anion Gap 13 mmol/L (10-20); BUN (Urea Nitrogen) 40 mg/dL (9.8-20.1); Calc. Creatinine Clearance 66 mL/min (70-130); Carbon Dioxide 20 mmol/L (23-31); Chloride 100 mmol/L (98-107); Delete Auto Diff?? YES; Estimated GFR 71; Glucose 208 mg/dL (83-110); Potassium 4.3 mmol/L (3.5-5.1); Sodium 129 mmol/L (136-145)
[2023-05-30] MEDS: tiZANidine HCl 4 MG TAB PO SCH ×2 (05:14→18:28)
[2023-05-30] MEDS: HumaLOG 300 UNITS/3 ML VIAL SC PRN (05:14)
[2023-05-30 06:46] LABS: Band 13 % (5-11); CellaVision Operator ID LAB.JMM; Elliptocytes SLIGHT = 2-5 cells HPF (0-1); Eosinophils 60 % (0-10); Lymphocytes 1 % (21-51); Macrocytosis SLIGHT = 6-15 cells HPF (0-5); Neutrophil 26 % (42-75); Platelet Adequacy Comment Platelets Normal; Poikilocytosis SLIGHT = 6-15 cells HPF (0-5); Polychromasia SLIGHT = 2-3 cells HPF (0-2); Rouleaux Formation SLIGHT = 1-5 cells HPF (None Seen); Total Cell Count 105
[2023-05-30] MEDS ORDERED: Aspirin 81 mg Enteric Coated Tablet PO SCH ×2 (09:00)
[2023-05-30] MEDS ORDERED: Enoxaparin 40 MG (0.4 mL) SYRINGE SC SCH (09:00)
[2023-05-30] MEDS: Dextrose 5%-Lactated Ringers 1,000 ML IV SCH (11:29)
[2023-05-30] MEDS: Pantoprazole 40 MG VIAL IVP SCH ×2 (11:33→21:23)
[2023-05-30] MEDS: Enoxaparin 60 MG (0.6 mL) SYRINGE SC SCH ×2 (11:39→21:23)
[2023-05-30] MEDS: predniSONE 20 MG TAB PO SCH (15:59)
[2023-05-30] MEDS: Carvedilol 6.25 MG TAB PO SCH ×2 (16:00→21:30)
[2023-05-30] MEDS: Ferrous Sulfate 325 MG TAB PO SCH (16:00)
[2023-05-30] MEDS: FLUoxetine HCl 20 MG CAP PO SCH (16:00)
[2023-05-30] MEDS: Mesalamine DR 400 mg Capsule PO SCH ×2 (16:01→21:30)
[2023-05-30] MEDS: Losartan 25 MG TAB PO SCH (16:01)
[2023-05-30] MEDS: Ivermectin 3 MG TAB PO SCH (16:01)
[2023-05-30] MEDS: Nitroglycerin 2% Ointment 1 INCH/1 GM Packet TOP SCH ×2 (16:01→21:31)
[2023-05-30] MEDS: methylPREDNISolone Sod Succ 40 MG VIAL IVP SCH (18:28)
[2023-05-30] MEDS: Thiamine HCl 200 MG/2 ML VIAL SLOW IVP SCH (21:23)
[2023-05-30] MEDS: Atorvastatin Calcium 40 MG TAB PO SCH (21:30)
[2023-05-31] MEDS: HumaLOG 300 UNITS/3 ML VIAL SC PRN ×3 (00:23→18:25)
[2023-05-31 04:46] LABS: Hematocrit 32.9 % (36.0-47.0); Hemoglobin 10.8 g/dL (12.0-16.0); Manual Diff?? YES; Mean Corpuscular HGB CONC 32.8 g/dL (32.0-36.0); Mean Corpuscular Hemoglobin 26.3 pg (27.0-31.0); Mean Corpuscular Volume 80.2 fl (78.0-98.0); Mean Platelet Volume 9.6 fL (7.4-10.4); Platelet Count 143 10x3/uL (130-400); RBC Distribution Width 17.9 % (11.5-14.5); White Blood Cell (WBC) Count 49.5 10x3/uL (4.8-10.8)
[2023-05-31 05:05] LABS: Delete Auto Diff?? YES
[2023-05-31 05:12] LABS: Anion Gap 13 mmol/L (10-20); BUN (Urea Nitrogen) 46 mg/dL (9.8-20.1); Calc. Creatinine Clearance 67 mL/min (70-130); Calcium 8.1 mg/dL (7.8-10.44); Carbon Dioxide 21 mmol/L (23-31); Cardiac Risk 3.3 (Less than 4.5); Chloride 104 mmol/L (98-107); Cholesterol 111 mg/dl (< 200 Desired); Estimated GFR 73; Glucose 216 mg/dL (83-110); HDL Cholesterol 34 mg/dL (>60 Neg Risk); LDL Cholesterol, Calculated 46 mg/dL; Magnesium 2.1 mg/dL (1.6-2.6); Potassium 4.6 mmol/L (3.5-5.1); Sodium 133 mmol/L (136-145); Triglycerides 153 mg/dL (Less than 150)
[2023-05-31 05:40] LABS: Band 12 % (5-11); Burr Cells SLIGHT = 2-5 cells HPF (0-1); CellaVision Operator ID lab.abc; Eosinophils 46 % (0-10); Large Platelets 1.8 % (0-5); Lymphocytes 1 % (21-51); Monocytes 1 % (0-10); Neutrophil 40 % (42-75); Platelet Adequacy Comment Platelets Normal; Poikilocytosis SLIGHT = 6-15 cells HPF (0-5); Smudge Cells 12.7 %; Total Cell Count 110
[2023-05-31] MEDS: methylPREDNISolone Sod Succ 40 MG VIAL IVP SCH ×2 (05:41→17:39)
[2023-05-31] MEDS: Dextrose 5%-Lactated Ringers 1,000 ML IV SCH (05:42)
[2023-05-31] MEDS: tiZANidine HCl 4 MG TAB PO SCH ×2 (05:46→18:27)
[2023-05-31] MEDS: Aspirin 300 MG Suppository PR SCH (10:07)
[2023-05-31] MEDS: Pantoprazole 40 MG VIAL IVP SCH ×2 (10:13→20:50)
[2023-05-31] MEDS: Nitroglycerin 2% Ointment 1 INCH/1 GM Packet TOP SCH ×2 (10:18→21:20)
[2023-05-31] MEDS: Carvedilol 6.25 MG TAB PO SCH ×2 (10:19→21:12)
[2023-05-31] MEDS: Mesalamine DR 400 mg Capsule PO SCH ×3 (10:19→21:20)
[2023-05-31] MEDS: Losartan 25 MG TAB PO SCH (10:19)
[2023-05-31] MEDS: Ivermectin 3 MG TAB PO SCH (10:20)
[2023-05-31] MEDS: FLUoxetine HCl 20 MG CAP PO SCH (10:20)
[2023-05-31] MEDS: Enoxaparin 60 MG (0.6 mL) SYRINGE SC SCH (16:23)
[2023-05-31] MEDS: Thiamine HCl 200 MG/2 ML VIAL SLOW IVP SCH (20:50)
[2023-05-31] MEDS: Atorvastatin Calcium 40 MG TAB PO SCH (21:11)
[2023-06-01] MEDS: Dextrose 5%-Lactated Ringers 1,000 ML IV SCH ×2 (03:45→22:41)
[2023-06-01] MEDS: methylPREDNISolone Sod Succ 40 MG VIAL IVP SCH ×2 (05:08→18:08)
[2023-06-01] MEDS: tiZANidine HCl 4 MG TAB PO SCH ×2 (05:56→18:08)
[2023-06-01] MEDS: HumaLOG 300 UNITS/3 ML VIAL SC PRN (06:01)
[2023-06-01] MEDS: Nitroglycerin 2% Ointment 1 INCH/1 GM Packet TOP SCH ×2 (08:36→22:34)
[2023-06-01] MEDS: Aspirin 300 MG Suppository PR SCH (08:36)
[2023-06-01] MEDS: FLUoxetine HCl 20 MG CAP PO SCH (08:45)
[2023-06-01] MEDS: Carvedilol 6.25 MG TAB PO SCH ×2 (08:45→22:31)
[2023-06-01] MEDS: Losartan 25 MG TAB PO SCH (08:46)
[2023-06-01] MEDS: Ivermectin 3 MG TAB PO SCH (08:46)
[2023-06-01] MEDS: Pantoprazole 40 MG VIAL IVP SCH ×2 (08:46→22:36)
[2023-06-01] MEDS: Mesalamine DR 400 mg Capsule PO SCH ×2 (08:46→23:34)
[2023-06-01 10:06] LABS: Hematocrit 31.7 % (36.0-47.0); Hemoglobin 10.1 g/dL (12.0-16.0); Manual Diff?? YES; Mean Corpuscular HGB CONC 31.9 g/dL (32.0-36.0); Mean Corpuscular Hemoglobin 26.4 pg (27.0-31.0); Mean Platelet Volume 10.1 fL (7.4-10.4); Platelet Count 119 10x3/uL (130-400); RBC Distribution Width 18.5 % (11.5-14.5); Red Blood Cell (RBC) Count 3.82 mill/uL (4.20-5.40); White Blood Cell (WBC) Count 48.6 10x3/uL (4.8-10.8)
[2023-06-01 10:32] LABS: Delete Auto Diff?? YES
[2023-06-01 10:35] LABS: Anion Gap 14 mmol/L (10-20); BUN (Urea Nitrogen) 45 mg/dL (9.8-20.1); Calc. Creatinine Clearance 67 mL/min (70-130); Calcium 7.9 mg/dL (7.8-10.44); Carbon Dioxide 22 mmol/L (23-31); Chloride 106 mmol/L (98-107); Estimated GFR 72; Glucose 233 mg/dL (83-110); Potassium 4.5 mmol/L (3.5-5.1); Sodium 137 mmol/L (136-145)
[2023-06-01 11:17] LABS: Band 4 % (5-11); Burr Cells MODERATE= 6-15 cells HPF (0-1); CellaVision Operator ID LAB.CMB; Eosinophils 39 % (0-10); Monocytes 2 % (0-10); Neutrophil 52 % (42-75); Ovalocytes SLIGHT = 2-5 cells HPF (0-1); Platelet Adequacy Comment Platelets Decreased; Polychromasia SLIGHT = 2-3 cells HPF (0-2); RBC Morphology 2; Total Cell Count 121
[2023-06-01] MEDS: Atorvastatin Calcium 40 MG TAB PO SCH (22:31)
[2023-06-01] MEDS: Thiamine HCl 200 MG/2 ML VIAL SLOW IVP SCH (22:39)
[2023-06-02] MEDS: HumaLOG 300 UNITS/3 ML VIAL SC PRN ×4 (00:53→18:46)
[2023-06-02] MEDS: Lactated Ringer's 1,000 ML IV SCH (01:59)
[2023-06-02 04:14] LABS: Hematocrit 29.1 % (36.0-47.0); Hemoglobin 9.3 g/dL (12.0-16.0); Manual Diff?? YES; Mean Corpuscular Hemoglobin 26.5 pg (27.0-31.0); Mean Corpuscular Volume 82.9 fl (78.0-98.0); Mean Platelet Volume 10.7 fL (7.4-10.4); Platelet Count 127 10x3/uL (130-400); RBC Distribution Width 18.4 % (11.5-14.5); Red Blood Cell (RBC) Count 3.51 mill/uL (4.20-5.40); White Blood Cell (WBC) Count 42.8 10x3/uL (4.8-10.8)
[2023-06-02 04:38] LABS: Anion Gap 14 mmol/L (10-20); BUN (Urea Nitrogen) 45 mg/dL (9.8-20.1); Calc. Creatinine Clearance 67 mL/min (70-130); Calcium 7.9 mg/dL (7.8-10.44); Carbon Dioxide 19 mmol/L (23-31); Chloride 109 mmol/L (98-107); Estimated GFR 73; Glucose 243 mg/dL (83-110); Potassium 4.1 mmol/L (3.5-5.1); Sodium 138 mmol/L (136-145)
[2023-06-02 04:44] LABS: Delete Auto Diff?? YES
[2023-06-02 05:55] LABS: Band 3 % (5-11); CellaVision Operator ID lab.abc; Eosinophils 68 % (0-10); Large Platelets 0.9 % (0-5); Lymphocytes 2 % (21-51); Monocytes 4 % (0-10); Neutrophil 25 % (42-75); Platelet Adequacy Comment Platelets Decreased; Platelet Clumps 0.9 % (0-5); RBC Morphology Within Normal Limits; Smudge Cells 13.2 %; Total Cell Count 114
[2023-06-02] MEDS: methylPREDNISolone Sod Succ 40 MG VIAL IVP SCH ×2 (05:58→16:54)
[2023-06-02] MEDS: tiZANidine HCl 4 MG TAB PO SCH ×2 (06:00→16:53)
[2023-06-02] MEDS: FLUoxetine HCl 20 MG CAP PO SCH (09:17)
[2023-06-02] MEDS: Aspirin 300 MG Suppository PR SCH (09:17)
[2023-06-02] MEDS: Carvedilol 6.25 MG TAB PO SCH ×2 (09:17→21:57)
[2023-06-02] MEDS: Pantoprazole 40 MG VIAL IVP SCH ×2 (09:17→22:01)
[2023-06-02] MEDS: Ferrous Sulfate 325 MG TAB PO SCH (09:17)
[2023-06-02] MEDS: Mesalamine DR 400 mg Capsule PO SCH ×3 (09:18→16:53)
[2023-06-02] MEDS: Nitroglycerin 2% Ointment 1 INCH/1 GM Packet TOP SCH ×2 (09:18→21:57)
[2023-06-02] MEDS: Ivermectin 3 MG TAB PO SCH (09:18)
[2023-06-02] MEDS: Losartan 25 MG TAB PO SCH (09:41)
[2023-06-02] MEDS ORDERED: Amiodarone 150 MG, Admixture Fee 1 EACH in Dextrose 5% in Water 100 ML IVPB SCH (15:45)
[2023-06-02 17:13] LABS: Adenovirus F 40-41 Not Detected (Not Detected); Astrovirus Not Detected (Not Detected); C. difficile toxin A+B Not Detected (Not Detected); Campylobacter by PCR Not Detected (Not Detected); Cryptosporidium Not Detected (Not Detected); Cyclospora cayetanensis Not Detected (Not Detected); Entamoeba histolytica Not Detected (Not Detected); Enteroaggregative E. coli Not Detected (Not Detected); Enteropathogenic E. coli Not Detected (Not Detected); Enterotoxigenic E. coli Not Detected (Not Detected); Giardia lamblia Not Detected (Not Detected); Norovirus GI-GII Not Detected (Not Detected); Plesiomonas shigelloides Not Detected (Not Detected); Rotavirus A Not Detected (Not Detected); Salmonella Not Detected (Not Detected); Sapovirus Not Detected (Not Detected); Shiga-toxin-producing E coli Not Detected (Not Detected); Shigella/Enteroinvasive E coli Not Detected (Not Detected); Vibrio Not Detected (Not Detected); Vibrio cholerae Not Detected (Not Detected); Yersinia enterocolitica Not Detected (Not Detected)
[2023-06-02] MEDS: Amiodarone 450 MG in Dextrose 5% in Water 250 ML IVPB SCH ×2 (17:15→23:42)
[2023-06-02] MEDS ORDERED: Mesalamine DR 400 mg Capsule PO SCH (20:14)
[2023-06-02] MEDS: Atorvastatin Calcium 40 MG TAB PO SCH (21:56)
[2023-06-02] MEDS: Thiamine HCl 200 MG/2 ML VIAL SLOW IVP SCH (21:57)
[2023-06-03] MEDS: HumaLOG 300 UNITS/3 ML VIAL SC PRN ×4 (00:41→18:42)
[2023-06-03] MEDS: Lactated Ringer's 1,000 ML IV SCH (02:16)
[2023-06-03] MEDS: methylPREDNISolone Sod Succ 40 MG VIAL IVP SCH ×2 (04:43→16:46)
[2023-06-03] MEDS: tiZANidine HCl 4 MG TAB PO SCH (04:43)
[2023-06-03 05:09] LABS: Hematocrit 28.7 % (36.0-47.0); Manual Diff?? YES; Mean Corpuscular HGB CONC 31.4 g/dL (32.0-36.0); Mean Corpuscular Hemoglobin 26.6 pg (27.0-31.0); Mean Corpuscular Volume 84.9 fl (78.0-98.0); Mean Platelet Volume 10.7 fL (7.4-10.4); Platelet Count 139 10x3/uL (130-400); RBC Distribution Width 18.5 % (11.5-14.5); Red Blood Cell (RBC) Count 3.38 mill/uL (4.20-5.40); White Blood Cell (WBC) Count 42.5 10x3/uL (4.8-10.8)
[2023-06-03 05:25] LABS: Delete Auto Diff?? YES
[2023-06-03 05:38] LABS: Anion Gap 10 mmol/L (10-20); BUN (Urea Nitrogen) 56 mg/dL (9.8-20.1); Calc. Creatinine Clearance 57 mL/min (70-130); Calcium 8.2 mg/dL (7.8-10.44); Carbon Dioxide 24 mmol/L (23-31); Chloride 107 mmol/L (98-107); Estimated GFR 60; Glucose 322 mg/dL (83-110); Potassium 4.1 mmol/L (3.5-5.1); Sodium 137 mmol/L (136-145)
[2023-06-03 06:30] LABS: Anisocytosis SLIGHT = 6-15 cells HPF (0-5); Band 9 % (5-11); Burr Cells SLIGHT = 2-5 cells HPF (0-1); CellaVision Operator ID LAB.JMM; Eosinophils 66 % (0-10); Lymphocytes 3 % (21-51); Neutrophil 23 % (42-75); Platelet Adequacy Comment Platelets Normal; Polychromasia SLIGHT = 2-3 cells HPF (0-2); Smudge Cells 16.7 %; Total Cell Count 102
[2023-06-03] MEDS: Losartan 25 MG TAB PO SCH (10:35)
[2023-06-03] MEDS: Carvedilol 6.25 MG TAB PO SCH (10:36)
[2023-06-03] MEDS: FLUoxetine HCl 20 MG CAP PO SCH (10:37)
[2023-06-03] MEDS: Aspirin 81 mg Enteric Coated Tablet PER TUBE SCH (10:37)
[2023-06-03] MEDS: Pantoprazole 40 MG VIAL IVP SCH ×2 (10:38→21:12)
[2023-06-03] MEDS: Nitroglycerin 2% Ointment 1 INCH/1 GM Packet TOP SCH (11:22)
[2023-06-03 13:25] LABS: ANA Symphony (Qualitative) POSITIVE (Negative); Jo-1 IgG Antibody 0.3 EliAU/mL (<7 Negative); RNP70 IgG Antibody 0.9 EliAU/mL (<7 Negative); SSA/Ro IgG Antibody 1.4 EliAU/mL (<7 Negative); SSB/La IgG Antibody 0.5 EliAU/mL (<7 Negative); Scleroderma-70 IgG Antibody 1.1 EliAU/mL (<7 Negative); dsDNA IgG Antibody 1.4 IU/mL (<10 Negative)
[2023-06-03] MEDS: Amiodarone 450 MG in Dextrose 5% in Water 250 ML IVPB SCH (15:19)
[2023-06-03] MEDS ORDERED: Enoxaparin 80 MG (0.8 mL) SYRINGE SC SCH (16:15)
[2023-06-03] MEDS ORDERED: Furosemide 40 MG (4 mL) VIAL SLOW IVP SCH (16:15)
[2023-06-03] MEDS: DOBUTamine 500 mg/250 ml 250 ML IVPB SCH (16:54)
[2023-06-03] MEDS: Thiamine HCl 200 MG/2 ML VIAL SLOW IVP SCH (21:10)
[2023-06-03] MEDS: Amiodarone 200 MG TAB PO SCH (21:13)
[2023-06-03] MEDS: Atorvastatin Calcium 40 MG TAB PO SCH (21:13)
[2023-06-04] MEDS: HumaLOG 300 UNITS/3 ML VIAL SC PRN ×3 (01:06→12:50)
[2023-06-04] MEDS: Amiodarone 450 MG in Dextrose 5% in Water 250 ML IVPB SCH (04:33)
[2023-06-04] MEDS: methylPREDNISolone Sod Succ 40 MG VIAL IVP SCH ×2 (04:33→16:41)
[2023-06-04 05:06] LABS: Anion Gap 13 mmol/L (10-20); BUN (Urea Nitrogen) 61 mg/dL (9.8-20.1); Calc. Creatinine Clearance 55 mL/min (70-130); Calcium 8.2 mg/dL (7.8-10.44); Carbon Dioxide 21 mmol/L (23-31); Chloride 105 mmol/L (98-107); Estimated GFR 57; Glucose 385 mg/dL (83-110); Potassium 4.3 mmol/L (3.5-5.1); Sodium 135 mmol/L (136-145)
[2023-06-04 05:59] LABS: Hematocrit 32.1 % (36.0-47.0); Hemoglobin 10.2 g/dL (12.0-16.0); Manual Diff?? YES; Mean Corpuscular HGB CONC 31.8 g/dL (32.0-36.0); Mean Corpuscular Hemoglobin 26.8 pg (27.0-31.0); Mean Corpuscular Volume 84.3 fl (78.0-98.0); Mean Platelet Volume 10.7 fL (7.4-10.4); Platelet Count 169 10x3/uL (130-400); RBC Distribution Width 19.5 % (11.5-14.5); Red Blood Cell (RBC) Count 3.81 mill/uL (4.20-5.40); White Blood Cell (WBC) Count 43.3 10x3/uL (4.8-10.8)
[2023-06-04 06:06] LABS: Delete Auto Diff?? YES
[2023-06-04 07:39] LABS: Band 6 % (5-11); CellaVision Operator ID LAB.KW3; Eosinophils 47 % (0-10); Lymphocytes 6 % (21-51); Monocytes 1 % (0-10); Neutrophil 40 % (42-75); Platelet Adequacy Comment Platelets Normal; Polychromasia SLIGHT = 2-3 cells HPF (0-2); Total Cell Count 102
[2023-06-04 08:06] LABS: RBC Morphology Within Normal Limits
[2023-06-04] MEDS: Enoxaparin 80 MG (0.8 mL) SYRINGE SC SCH ×2 (09:58→21:23)
[2023-06-04] MEDS: Ferrous Sulfate 325 MG TAB PO SCH (09:59)
[2023-06-04] MEDS: Pantoprazole 40 MG VIAL IVP SCH ×2 (09:59→21:24)
[2023-06-04] MEDS: FLUoxetine HCl 20 MG CAP PO SCH (09:59)
[2023-06-04] MEDS: Furosemide 40 MG (4 mL) VIAL SLOW IVP SCH (10:00)
[2023-06-04] MEDS: Amiodarone 200 MG TAB PO SCH ×2 (10:00→21:23)
[2023-06-04] MEDS: Aspirin 81 mg Enteric Coated Tablet PER TUBE SCH (10:00)
[2023-06-04] MEDS: DOBUTamine 500 mg/250 ml 250 ML IVPB SCH (16:10)
[2023-06-04] MEDS: Scopolamine 1 mg/72 hour Patch TD SCH (21:22)
[2023-06-04] MEDS: Thiamine HCl 200 MG/2 ML VIAL SLOW IVP SCH (21:23)
[2023-06-04] MEDS: Atorvastatin Calcium 40 MG TAB PO SCH (21:23)
[2023-06-04] MEDS ORDERED: Metoprolol Tartrate 5 MG (5 mL) VIAL IVP SCH (23:59)
[2023-06-05] MEDS: HumaLOG 300 UNITS/3 ML VIAL SC PRN ×3 (00:19→20:54)
[2023-06-05] MEDS: methylPREDNISolone Sod Succ 40 MG VIAL IVP SCH ×2 (06:03→17:38)
[2023-06-05 06:19] LABS: Hemoglobin A1c 7.6 % (4.0-6.0)
[2023-06-05 06:39] LABS: Anion Gap 16 mmol/L (10-20); BUN (Urea Nitrogen) 55 mg/dL (9.8-20.1); Calc. Creatinine Clearance 57 mL/min (70-130); Calcium 8.3 mg/dL (7.8-10.44); Carbon Dioxide 23 mmol/L (23-31); Chloride 103 mmol/L (98-107); Estimated GFR 60; Glucose 339 mg/dL (83-110); Magnesium 1.8 mg/dL (1.6-2.6); Potassium 4.1 mmol/L (3.5-5.1); Sodium 138 mmol/L (136-145)
[2023-06-05 07:16] LABS: Hematocrit 31.2 % (36.0-47.0); Manual Diff?? YES; Mean Corpuscular HGB CONC 32.1 g/dL (32.0-36.0); Mean Corpuscular Volume 81.3 fl (78.0-98.0); Mean Platelet Volume 10.9 fL (7.4-10.4); Platelet Count 207 10x3/uL (130-400); RBC Distribution Width 18.4 % (11.5-14.5); Red Blood Cell (RBC) Count 3.84 mill/uL (4.20-5.40); White Blood Cell (WBC) Count 34.2 10x3/uL (4.8-10.8)
[2023-06-05 07:42] LABS: Delete Auto Diff?? YES
[2023-06-05 08:31] LABS: Band 12 % (5-11); Burr Cells SLIGHT = 2-5 cells HPF (0-1); CellaVision Operator ID LAB.KW3; Eosinophils 30 % (0-10); Lymphocytes 2 % (21-51); Monocytes 1 % (0-10); Neutrophil 56 % (42-75); Platelet Adequacy Comment Platelets Normal; Polychromasia SLIGHT = 2-3 cells HPF (0-2); Total Cell Count 104
[2023-06-05] MEDS: Aspirin Chewable 81 MG TAB PER TUBE SCH (13:39)
[2023-06-05] MEDS: Acetaminophen 325 MG TAB PO PRN ×2 (13:39→20:49)
[2023-06-05] MEDS: FLUoxetine HCl 20 MG CAP PO SCH (13:40)
[2023-06-05] MEDS: Furosemide 40 MG (4 mL) VIAL SLOW IVP SCH (13:40)
[2023-06-05] MEDS: Ferrous Sulfate 325 MG TAB PO SCH (13:40)
[2023-06-05] MEDS: Enoxaparin 80 MG (0.8 mL) SYRINGE SC SCH ×2 (13:52→20:38)
[2023-06-05] MEDS: Pantoprazole 40 MG VIAL IVP SCH ×2 (13:52→20:43)
[2023-06-05] MEDS: Amiodarone 200 MG TAB PO SCH ×2 (13:53→20:43)
[2023-06-05] MEDS: Empagliflozin 10 MG TAB PO SCH (13:53)
[2023-06-05] MEDS ORDERED: Digoxin 0.5 MG/2 ML AMP SLOW IVP SCH (18:15)
[2023-06-05] MEDS ORDERED: Magnesium 2 GM/50 ML(in water) 2 GM in Premix 1 BAG IVPB SCH (18:15)
[2023-06-05] MEDS: Atorvastatin Calcium 40 MG TAB PO SCH (20:41)
[2023-06-05] MEDS: Thiamine HCl 200 MG/2 ML VIAL SLOW IVP SCH (20:43)
[2023-06-05 20:52] LABS: Digoxin 9.97 ng/mL (0.8-2.0)
[2023-06-05] MEDS ORDERED: Carvedilol 6.25 MG TAB PO SCH (21:00)
[2023-06-05 23:04] LABS: Digoxin 1.49 ng/mL (0.8-2.0)
[2023-06-06] MEDS: HumaLOG 300 UNITS/3 ML VIAL SC PRN ×3 (00:37→18:57)
[2023-06-06] MEDS: Acetaminophen 325 MG TAB PO PRN (00:37)
[2023-06-06 01:36] LABS: Bilirubin Negative (Negative); Blood, Urine Trace (Negative); Clarity Extra Turbid (Clear); Glucose, Urine (Dipstick) 500 mg/dL (Negative); Ketone, Urine Negative (Negative); Leukocyte 25 Leu/uL (Negative); Nitrite Negative (Negative); Protein, Urine (Dipstick) 70 mg/dL (Neg-Trace); Specific Gravity, Urine 1.019 (1.002-1.036); Urobilinogen Normal mg/dL (Less than 2); pH, Urine 6.5 (5.0-9.0)
[2023-06-06 01:46] LABS: Bacteria/HPF None Seen HPF (None Seen); RBC/HPF None Seen HPF (0-3); Squamous Epithelial None Seen HPF (0-3); WBC/HPF None Seen HPF (0-3); Yeast-Budding 4+ HPF (None Seen)
[2023-06-06 01:53] LABS: Urine Culture Reflex No No
[2023-06-06] MEDS ORDERED: Ibuprofen 200 MG TAB PO PRN (03:03)
[2023-06-06] MEDS ORDERED: Ketorolac Tromethamine 30 MG (1 mL) VIAL IVP SCH (03:15)
[2023-06-06] MEDS ORDERED: Sodium Chloride 0.9% 500 ML IV SCH (03:15)
[2023-06-06 04:43] LABS: Hematocrit 30.4 % (36.0-47.0); Hemoglobin 9.6 g/dL (12.0-16.0); Manual Diff?? YES; Mean Corpuscular HGB CONC 31.6 g/dL (32.0-36.0); Mean Corpuscular Hemoglobin 26.9 pg (27.0-31.0); Mean Platelet Volume 10.8 fL (7.4-10.4); Platelet Count 195 10x3/uL (130-400); RBC Distribution Width 18.3 % (11.5-14.5); Red Blood Cell (RBC) Count 3.57 mill/uL (4.20-5.40); White Blood Cell (WBC) Count 35.5 10x3/uL (4.8-10.8)
[2023-06-06 04:54] LABS: Delete Auto Diff?? YES; Mean Corpuscular Volume 85.2 fl (78.0-98.0)
[2023-06-06 05:06] LABS: Anion Gap 10 mmol/L (10-20); BUN (Urea Nitrogen) 60 mg/dL (9.8-20.1); Calc. Creatinine Clearance 52 mL/min (70-130); Calcium 7.6 mg/dL (7.8-10.44); Carbon Dioxide 28 mmol/L (23-31); Chloride 105 mmol/L (98-107); Estimated GFR 53; Glucose 351 mg/dL (83-110); Magnesium 2.4 mg/dL (1.6-2.6); Potassium 4.1 mmol/L (3.5-5.1); Sodium 139 mmol/L (136-145)
[2023-06-06 05:40] LABS: Anisocytosis SLIGHT = 6-15 cells HPF (0-5); Band 2 % (5-11); CellaVision Operator ID lab.sh2; Dohle Bodies SLIGHT; Elliptocytes SLIGHT = 2-5 cells HPF (0-1); Eosinophils 48 % (0-10); Lymphocytes 1 % (21-51); Monocytes 1 % (0-10); Neutrophil 48 % (42-75); Platelet Adequacy Comment Platelets Normal; Polychromasia SLIGHT = 2-3 cells HPF (0-2); Smudge Cells 30.6 %; Total Cell Count 98
[2023-06-06] MEDS ORDERED: Insulin Glargine 30 UNITS/0.3 ML VIAL SC SCH (09:00)
[2023-06-06] MEDS: Carvedilol 6.25 MG TAB PO SCH ×2 (09:15→17:56)
[2023-06-06] MEDS: predniSONE 20 MG TAB PER TUBE SCH (09:16)
[2023-06-06] MEDS: Furosemide 40 MG (4 mL) VIAL SLOW IVP SCH (09:16)
[2023-06-06] MEDS: Amiodarone 200 MG TAB PO SCH ×2 (09:17→20:16)
[2023-06-06] MEDS: FLUoxetine HCl 20 MG CAP PO SCH (09:18)
[2023-06-06] MEDS: Insulin Glargine 30 UNITS/0.3 ML VIAL SC SCH (09:19)
[2023-06-06] MEDS: Empagliflozin 10 MG TAB PO SCH (09:19)
[2023-06-06] MEDS: Pantoprazole 40 MG VIAL IVP SCH ×2 (09:21→20:16)
[2023-06-06] MEDS: Ondansetron PF 4 MG/2 ML Vial IVP PRN (09:48)
[2023-06-06] MEDS ORDERED: Lorazepam 2 MG/ML VIAL SLOW IVP PRN (10:07)
[2023-06-06] MEDS: Aspirin Chewable 81 MG TAB PER TUBE SCH (10:11)
[2023-06-06] MEDS ORDERED: Ondansetron PF 4 MG/2 ML Vial IVP SCH (10:15)
[2023-06-06] MEDS ORDERED: Piperacillin/Tazobactam 3.375 GM in Sodium Chloride 0.9% 100 ML IVPB SCH (10:15)
[2023-06-06] MEDS: Enoxaparin 80 MG (0.8 mL) SYRINGE SC SCH ×2 (11:55→20:16)
[2023-06-06] MEDS ORDERED: Fluconazole 100 MG TAB PO SCH (15:30)
[2023-06-06] MEDS: Piperacillin/Tazobactam 3.375 GM in Sodium Chloride 0.9% 100 ML IVPB SCH (17:55)
[2023-06-06] MEDS: Atorvastatin Calcium 40 MG TAB PO SCH (20:16)
[2023-06-06] MEDS: Thiamine HCl 200 MG/2 ML VIAL SLOW IVP SCH (20:17)
[2023-06-07] MEDS: Piperacillin/Tazobactam 3.375 GM in Sodium Chloride 0.9% 100 ML IVPB SCH ×3 (00:25→15:44)
[2023-06-07] MEDS: HumaLOG 300 UNITS/3 ML VIAL SC PRN ×3 (00:42→18:43)
[2023-06-07] MEDS ORDERED: Insulin Glargine 30 UNITS/0.3 ML VIAL SC SCH (09:00)
[2023-06-07] MEDS: Furosemide 40 MG (4 mL) VIAL SLOW IVP SCH (09:45)
[2023-06-07] MEDS: Pantoprazole 40 MG VIAL IVP SCH ×2 (09:45→20:19)
[2023-06-07] MEDS: Enoxaparin 80 MG (0.8 mL) SYRINGE SC SCH ×2 (09:50→20:19)
[2023-06-07] MEDS: Carvedilol 6.25 MG TAB PO SCH ×2 (11:40→18:07)
[2023-06-07] MEDS: predniSONE 20 MG TAB PER TUBE SCH (11:40)
[2023-06-07] MEDS: Aspirin Chewable 81 MG TAB PER TUBE SCH (11:41)
[2023-06-07] MEDS: Amiodarone 200 MG TAB PO SCH ×2 (11:41→20:18)
[2023-06-07] MEDS: Empagliflozin 10 MG TAB PO SCH (11:42)
[2023-06-07] MEDS: FLUoxetine HCl 20 MG CAP PO SCH (11:43)
[2023-06-07] MEDS: Insulin Glargine 30 UNITS/0.3 ML VIAL SC SCH (11:43)
[2023-06-07] MEDS ORDERED: Acetaminophen 325 MG Suppository PR SCH (14:45)
[2023-06-07 16:06] LABS: Hematocrit 33.2 % (36.0-47.0); Hemoglobin 10.3 g/dL (12.0-16.0); Manual Diff?? YES; Mean Corpuscular Hemoglobin 26.5 pg (27.0-31.0); Mean Corpuscular Volume 85.6 fl (78.0-98.0); Mean Platelet Volume 11.1 fL (7.4-10.4); Platelet Count 183 10x3/uL (130-400); RBC Distribution Width 19.3 % (11.5-14.5); Red Blood Cell (RBC) Count 3.88 mill/uL (4.20-5.40); White Blood Cell (WBC) Count 34.7 10x3/uL (4.8-10.8)
[2023-06-07 16:14] LABS: Delete Auto Diff?? YES
[2023-06-07 16:35] LABS: Anion Gap 16 mmol/L (10-20); BUN (Urea Nitrogen) 93 mg/dL (9.8-20.1); Calc. Creatinine Clearance 24 mL/min (70-130); Calcium 8.1 mg/dL (7.8-10.44); Carbon Dioxide 28 mmol/L (23-31); Chloride 105 mmol/L (98-107); Estimated GFR 21; Glucose 336 mg/dL (83-110); Potassium 4.4 mmol/L (3.5-5.1); Sodium 145 mmol/L (136-145)
[2023-06-07 16:53] LABS: Anisocytosis SLIGHT = 6-15 cells HPF (0-5); Band 7 % (5-11); CellaVision Operator ID LAB.KB; Eosinophils 30 % (0-10); Hypochromia SLIGHT = 6-15 cells HPF (0-5); Lymphocytes 4 % (21-51); Neutrophil 60 % (42-75); Ovalocytes SLIGHT = 2-5 cells HPF (0-1); Platelet Adequacy Comment Platelets Normal; Polychromasia SLIGHT = 2-3 cells HPF (0-2); Total Cell Count 105
[2023-06-07] MEDS ORDERED: Lorazepam 2 MG/ML VIAL SLOW IVP PRN (17:38)
[2023-06-07] MEDS ORDERED: Morphine 2 MG/ML VIAL SLOW IVP SCH (17:45)
[2023-06-07] MEDS: DOBUTamine 500 mg/250 ml 250 ML IVPB SCH (18:46)
[2023-06-07] MEDS ORDERED: Acetaminophen 325 MG Suppository PR PRN (19:00)
[2023-06-07] MEDS: Thiamine HCl 200 MG/2 ML VIAL SLOW IVP SCH (20:19)
[2023-06-07] MEDS: Atorvastatin Calcium 40 MG TAB PO SCH (20:20)
[2023-06-07] MEDS: Scopolamine 1 mg/72 hour Patch TD SCH (20:20)
[2023-06-07] MEDS: Morphine 2 MG/ML VIAL SLOW IVP PRN (22:14)
[2023-06-08] MEDS: Piperacillin/Tazobactam 3.375 GM in Sodium Chloride 0.9% 100 ML IVPB SCH (01:57)
[2023-06-08 04:17] VITALS: BP 126/69; TEMP 98
[2023-06-08] MEDS: Morphine 2 MG/ML VIAL SLOW IVP PRN (08:48)
[2023-06-08] MEDS: Pantoprazole 40 MG VIAL IVP SCH (08:51)
[2023-06-08] MEDS: Enoxaparin 80 MG (0.8 mL) SYRINGE SC SCH (08:51)
[2023-06-10 08:18] LABS: Routine O & P Final report (.)
== END 2023-06-08 10:21 | disposition hospice, inpatient (51) | DRG 385 ==
LOC: ERS 11:16 → SUATTDRO 11:16 → SURG A 16:37 → OBSVTOIN 05-23 09:46 → 2NO 05-28 17:05 → 2SE 06-02 13:51
PROVIDERS: ADMIT Internal Medicine; ATTEND Internal Medicine
PROC: 4A033R1 Measurement of Arterial Saturation, Peripheral, Percutaneous Approach (ICD-10-PCS; 2023-05-29)
PROC: 4A00X4Z Measurement of Central Nervous Electrical Activity, External Approach (ICD-10-PCS; principal; 2023-05-30)
DX: K50.10 Crohn's disease of large intestine without complications (principal); I21.4 Non-ST elevation (NSTEMI) myocardial infarction; I63.40 Cerebral infarction due to embolism of unspecified cerebral artery; I50.21 Acute systolic (congestive) heart failure; J96.01 Acute respiratory failure with hypoxia; E22.2 Syndrome of inappropriate secretion of antidiuretic hormone; I42.8 Other cardiomyopathies; I13.0 Hypertensive heart and chronic kidney disease with heart failure and stage 1 through stage 4 chronic kidney disease, or unspecified chronic kidney disease; I48.0 Paroxysmal atrial fibrillation; F32.A Depression, unspecified; E83.42 Hypomagnesemia; I25.10 Atherosclerotic heart disease of native coronary artery without angina pectoris; Z90.710 Acquired absence of both cervix and uterus; Z90.49 Acquired absence of other specified parts of digestive tract; Z95.5 Presence of coronary angioplasty implant and graft; Z66 Do not resuscitate; F17.210 Nicotine dependence, cigarettes, uncomplicated; Z79.899 Other long term (current) drug therapy; Z79.84 Long term (current) use of oral hypoglycemic drugs; Z79.82 Long term (current) use of aspirin; E11.22 Type 2 diabetes mellitus with diabetic chronic kidney disease; D72.10 Eosinophilia, unspecified; R07.89 Other chest pain; K21.9 Gastro-esophageal reflux disease without esophagitis; E78.00 Pure hypercholesterolemia, unspecified; N18.2 Chronic kidney disease, stage 2 (mild); E66.9 Obesity, unspecified; I48.91 Unspecified atrial fibrillation
CPT/HCPCS: 36415; 36416; 36600; 70450; 70551; 71045; 71275; 74018; 74177; 80048; 80053; 80061; 80162; 81001; 82140; 82728; 82805; 83036; 83605; 83690; 83735; 83880; 83930; 83935; 84100; 84300; 84484; 85025; 85060; 86038; 86140; 86225; 86235; 86480; 86753; 86850; 86900; 86901; 87040; 87086; 87177; 87324; 87328; 87329; 87337; 87385; 87449; 87505; 87507; 88184; 88185; 88189; 93005; 93010; 93306; 93880; 95711; 95819; 96365; 96366; 96367; 96368; 96375; 96376; 97139; C9113; G0378; J0282; J0360; J1160; J1250; J1650; J1815; J1885; J1940; J2060; J2185; J2270; J2272; J2405; J2543; J2765; J2920; J3370; J3370-JW; J3411; J3475; J3490; J7030; J7050; J7070; J7120; J7512; J8499; Q9967

== ENCOUNTER 2023-06-08 10:28 | Inpatient (IN) | payer OTHER ==
[2023-06-08] MEDS ORDERED: Acetaminophen 650 MG Suppository PR PRN (11:42)
[2023-06-08] MEDS ORDERED: Scopolamine 1 mg/72 hour Patch TOP SCH (12:00)
[2023-06-08] MEDS: Morphine 2 MG/ML VIAL SLOW IVP PRN ×3 (15:13→23:07)
[2023-06-08] MEDS: Lorazepam 2 MG/ML VIAL SLOW IVP PRN ×2 (17:30→23:08)
[2023-06-08 18:16] VITALS: BMI 30.2
[2023-06-08] MEDS: Morphine 2 MG/ML VIAL SLOW IVP SCH (20:55)
[2023-06-08] MEDS: Lorazepam 2 MG/ML VIAL SLOW IVP SCH (20:55)
[2023-06-09] MEDS: Morphine 2 MG/ML VIAL SLOW IVP PRN ×7 (02:00→17:57)
[2023-06-09] MEDS: Lorazepam 2 MG/ML VIAL SLOW IVP PRN ×4 (02:01→12:05)
[2023-06-09] MEDS: Lorazepam 2 MG/ML VIAL SLOW IVP SCH ×2 (08:59→20:57)
[2023-06-09] MEDS: Morphine 2 MG/ML VIAL SLOW IVP SCH ×2 (08:59→20:50)
[2023-06-10] MEDS: Morphine 2 MG/ML VIAL SLOW IVP PRN ×6 (00:02→13:37)
[2023-06-10] MEDS: Lorazepam 2 MG/ML VIAL SLOW IVP PRN ×5 (00:17→13:37)
[2023-06-10] MEDS: Morphine 2 MG/ML VIAL SLOW IVP SCH ×5 (09:01→20:42)
[2023-06-10] MEDS: Lorazepam 2 MG/ML VIAL SLOW IVP SCH ×5 (09:02→20:47)
[2023-06-10 21:52] VITALS: BP 48/37; TEMP 102.6
== END 2023-06-10 22:55 | disposition expired | DRG 951 ==
LOC: 2SE 10:28 → T4-A 14:51
PROVIDERS: ADMIT Family Medicine; ATTEND Family Medicine
DX: Z51.5 Encounter for palliative care (principal); K50.90 Crohn's disease, unspecified, without complications; E11.9 Type 2 diabetes mellitus without complications; I10 Essential (primary) hypertension; F17.210 Nicotine dependence, cigarettes, uncomplicated; E78.5 Hyperlipidemia, unspecified; E83.42 Hypomagnesemia; F32.A Depression, unspecified; I25.10 Atherosclerotic heart disease of native coronary artery without angina pectoris; Z98.890 Other specified postprocedural states; Z79.899 Other long term (current) drug therapy; Z79.84 Long term (current) use of oral hypoglycemic drugs; Z90.710 Acquired absence of both cervix and uterus; Z90.49 Acquired absence of other specified parts of digestive tract; Z95.5 Presence of coronary angioplasty implant and graft
CPT/HCPCS: J2060; J2272